=== PATIENT | female | born 1940 | race Caucasian/White ===

== ENCOUNTER → 2017-03-30 | Outpatient (CLI) | payer MEDICARE ==
--- NOTE | 2017-03-30 10:33 | MM ---
Reason for exam: additional evaluation requested from prior study. Last mammogram was performed 1 year ago. History: Patient is postmenopausal and has history of breast cancer at age 57. Family history of breast cancer in paternal aunt, breast cancer in paternal cousin, and breast cancer in sister at age 62. Malignant lumpectomy of the right breast, January 12, 1998. Radiation therapy of the right breast. Took tamoxifen for 5 years beginning at age 57. Physical Findings: Nurse did not find any significant physical abnormalities on exam. MG 3D Diag Mammo W/Cad JESUS Bilateral CC and MLO view(s) were taken. Prior study comparison: March 17, 2016, bilateral MG 3d diag mammo w/cad JESUS. February 17, 2015, bilateral MG diagnostic mammo w CAD JESUS. The breast tissue is heterogeneously dense. This may lower the sensitivity of mammography. Stable benign calcifications. There is no discrete abnormality including area of concern. Stable post operative changes in the right breast. These results were verbally communicated with the patient and result sheet given to the patient on 03/30/17. ASSESSMENT: Incomplete: need additional imaging evaluation, BI-RAD 0 RECOMMENDATION: Ultrasound of the left breast. Manage patient on a clinical basis.
--- NOTE | 2017-03-30 10:34 | USB ---
Reason for exam: additional evaluation requested from abnormal screening. History: Patient is postmenopausal and has history of breast cancer at age 57. Family history of breast cancer in paternal aunt, breast cancer in paternal cousin, and breast cancer in sister at age 62. Malignant lumpectomy of the right breast, January 12, 1998. Radiation therapy of the right breast. Took tamoxifen for 5 years beginning at age 57. US Breast Limited LT Left breast ultrasound demonstrates no cystic or solid lesion seen. These results were verbally communicated with the patient and result sheet given to the patient on 03/30/17. ASSESSMENT: Negative, BI-RAD 1 RECOMMENDATION: Follow-up diagnostic mammogram of both breasts in 1 year. Manage patient on a clinical basis.
== END | disposition home or self-care (01) ==
LOC: RADMAMWWP 09:28
PROVIDERS: ATTEND Internal Medicine
DX: Z08 Encounter for follow-up examination after completed treatment for malignant neoplasm (principal); R92.8 Other abnormal and inconclusive findings on diagnostic imaging of breast; Z85.3 Personal history of malignant neoplasm of breast
CPT/HCPCS: 76642; G0204; G0279

== ENCOUNTER 2017-10-18 08:10 | Day surgery (SDC) | payer MEDICARE ==
[2017-10-16 14:48] VITALS: BMI 35.2
[~2017-10-18 08:10] MED LIST: LACTATED RINGERS 1,000 ML IV SCH; LIDOCAINE 1% 20 ML VIAL (10MG/ML) FOR IV START INTRADERMA PRN
[2017-10-18 08:43] LABS: Glucose,Whole Blood 172 mg/dL (75-99)
[2017-10-18 08:44] VITALS: TEMP 98
[2017-10-18] MEDS ORDERED: PROPOFOL 10 MG/ML 20 ML VIAL IV ONE (09:01)
--- NOTE | 2017-10-18 09:16 | P.PCN ---
Date of Procedure: 10/18/17 Procedure(s) Performed: BRIEF HISTORY: Patient is a 77-year-old pleasant white female, scheduled for an elective colonoscopy as a part of screening for colorectal neoplasia. PROCEDURE PERFORMED: Colonoscopy. PREOPERATIVE DIAGNOSIS: Screening for colon cancer. IV sedation per Anesthesia. PROCEDURE: After informed consent was obtained, the patient, was brought into the endoscopy unit. IV sedation was administered by Anesthesia under continuous monitoring. Digital rectal examination was normal. Initially the Olympus CF- 160 flexible video colonoscope was then inserted in the rectum, gradually advanced into the cecum without any difficulty. Careful examination was performed as the scope was gradually being withdrawn. Ileocecal valve and the appendiceal orifice were visualized and appeared normal. Prep was excellent. Mucosa of the cecum, ascending colon, transverse colon, descending colon, sigmoid colon, and rectum appeared normal. Moderate sigmoid diverticulosis seen. Retroflexion was performed in the rectum and no lesions were seen. The patient tolerated the procedure well. IMPRESSION: Normal-appearing colon from rectum to cecum with no evidence of colorectal neoplasia. Moderate sigmoid diverticulosis . RECOMMENDATIONS: Findings of this examination were discussed with the patient as well as a family. She was advised to be a high-fiber diet and take fiber supplements a regular basis.
[2017-10-18 09:23] VITALS: RESP 16
[2017-10-18 09:36] VITALS: BP 135/61; PULSE 73
== END 2017-10-18 09:59 | disposition home or self-care (01) ==
LOC: ORWHC2ENDO 08:10
PROVIDERS: ATTEND Internal Medicine Gastroenterology
DX: Z12.11 Encounter for screening for malignant neoplasm of colon (principal); K57.30 Diverticulosis of large intestine without perforation or abscess without bleeding; I10 Essential (primary) hypertension; E11.9 Type 2 diabetes mellitus without complications; K21.9 Gastro-esophageal reflux disease without esophagitis; Z88.2 Allergy status to sulfonamides; Z79.84 Long term (current) use of oral hypoglycemic drugs; Z79.82 Long term (current) use of aspirin; Z79.899 Other long term (current) drug therapy
CPT/HCPCS: J2704; G0121

== ENCOUNTER → 2018-04-02 | Outpatient (CLI) | payer MEDICARE ==
--- NOTE | 2018-04-02 10:59 | MM ---
Reason for exam: additional evaluation requested from prior study. Last mammogram was performed 1 year ago. History: Patient is postmenopausal and has history of breast cancer at age 57. Family history of breast cancer in paternal aunt, breast cancer in paternal cousin, and breast cancer in sister at age 62. Malignant lumpectomy of the right breast, January 12, 1998. Radiation therapy of the right breast. Took tamoxifen for 5 years beginning at age 57. Physical Findings: Nurse did not find any significant physical abnormalities on exam. MG 3D Diag Mammo W/Cad JESUS Bilateral CC and MLO view(s) were taken. Prior study comparison: March 30, 2017, bilateral MG 3d diag mammo w/cad JESUS. March 17, 2016, bilateral MG 3d diag mammo w/cad JESUS. The breast tissue is heterogeneously dense. This may lower the sensitivity of mammography. Stable post surgical change right breast. No significant new findings when compared with previous films. These results were verbally communicated with the patient and result sheet given to the patient on 04/02/18. ASSESSMENT: Benign, BI-RAD 2 RECOMMENDATION: Routine screening mammogram of both breasts in 1 year.
== END | disposition home or self-care (01) ==
LOC: RADMAMWWP 09:10
PROVIDERS: ATTEND Internal Medicine
DX: R92.8 Other abnormal and inconclusive findings on diagnostic imaging of breast (principal)
CPT/HCPCS: 77066; G0279; 77062

== ENCOUNTER 2018-12-18 18:06 | Emergency (ER) | payer OTHER, MEDICARE ==
[2018-12-18] MEDS ORDERED: KETOROLAC 60 MG/2 ML VIAL IVP STA (18:45)
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
[2018-12-18 19:05] LABS: Basophils % (A) 0 %; Eosinophils # (A) 0.3 k/uL (0-0.7); Eosinophils % (A) 3 %; HCT 35.6 % (34.0-46.0); HGB 11.1 gm/dL (11.4-16.0); Lymphocytes # (A) 1.2 k/uL (1.0-4.8); Lymphocytes % (A) 15 %; MCH 25.6 pg (25.0-35.0); MCHC 31.2 g/dL (31.0-37.0); MCV 82.1 fL (80.0-100.0); Monocytes # (A) 0.4 k/uL (0-1.0); Monocytes % (A) 5 %; Neutrophils # (A) 5.8 k/uL (1.3-7.7); Neutrophils % (A) 75 %; Platelet Count 180 k/uL (150-450); RBC 4.34 m/uL (3.80-5.40); WBC 7.8 k/uL (3.8-10.6)
[2018-12-18 19:13] LABS: Albumin 4.2 g/dL (3.5-5.0); Calcium 9.7 mg/dL (8.4-10.2); Potassium 4.7 mmol/L (3.5-5.1); Total Bilirubin 0.4 mg/dL (0.2-1.3); Total Protein 6.8 g/dL (6.3-8.2)
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
[2018-12-18 20:10] VITALS: TEMP 98
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
[2018-12-18 21:29] VITALS: BP 156/63; PULSE 79; RESP 18
== END 2018-12-18 21:26 | disposition home or self-care (01) ==
LOC: EC 18:06
DX: S16.1XXA Strain of muscle, fascia and tendon at neck level, initial encounter (principal); S20.219A Contusion of unspecified front wall of thorax, initial encounter; E11.9 Type 2 diabetes mellitus without complications; K21.9 Gastro-esophageal reflux disease without esophagitis; E78.5 Hyperlipidemia, unspecified; I10 Essential (primary) hypertension; Z88.2 Allergy status to sulfonamides; Z79.82 Long term (current) use of aspirin; Z79.84 Long term (current) use of oral hypoglycemic drugs; Z79.899 Other long term (current) drug therapy; V43.52XA Car driver injured in collision with other type car in traffic accident, initial encounter; Y92.410 Unspecified street and highway as the place of occurrence of the external cause
CPT/HCPCS: 36415; 93005; 80053; 84484; 85025; 71120; 71046; 72125; 70450; 71250; 99285; 96374; J1885

== ENCOUNTER → 2019-04-03 | Outpatient (CLI) | payer MEDICARE ==
[2019-04-03 11:18] LABS: Appearance,Urine Clear (Clear); Bilirubin,Urine Negative (Negative); Blood,Urine Negative (Negative); Color,Urine Light Yellow; Glucose,Urine (UA) Negative (Negative); Ketones,Urine Negative (Negative); Leukocyte Esterase,Urine Trace (Negative); Mucus,Urine Rare /hpf; Nitrite,Urine Negative (Negative); Protein,Urine Negative (Negative); RBC,Urine <1 /hpf (0-5); Specific Gravity,Urine 1.009 (1.001-1.035); Urobilinogen,Urine <2.0 mg/dL (<2.0); WBC,Urine 1 /hpf (0-5)
[2019-04-03 12:53] LABS: Basophils % (A) 0 %; Eosinophils # (A) 0.2 k/uL (0-0.7); Eosinophils % (A) 4 %; HCT 33.7 % (34.0-46.0); HGB 10.5 gm/dL (11.4-16.0); Hypochromasia Slight; Lymphocytes # (A) 1.4 k/uL (1.0-4.8); Lymphocytes % (A) 26 %; MCH 26.6 pg (25.0-35.0); MCHC 31.2 g/dL (31.0-37.0); MCV 85.2 fL (80.0-100.0); Mean Platelet Volume 6.5; Monocytes # (A) 0.3 k/uL (0-1.0); Monocytes % (A) 5 %; Neutrophils # (A) 3.3 k/uL (1.3-7.7); Neutrophils % (A) 62 %; Platelet Count 201 k/uL (150-450); RBC 3.96 m/uL (3.80-5.40); RDW 14.2 % (11.5-15.5); WBC 5.3 k/uL (3.8-10.6)
[2019-04-03 16:39] LABS: Total Volume 24 Hour,Urine 1350 mL
[2019-04-03 16:52] LABS: Creatinine 24 Hour,Urine 0.61 g/24Hr (0.80-1.80)
[2019-04-03 18:03] LABS: Total Protein 24 Hour,Urine 82.4 mg/24Hr
[2019-04-03 18:21] LABS: Creatinine 24 Hour,Urine 649.4 mg/24hr (800.0-1800.0)
[2019-04-03 18:37] LABS: Iron Saturation 15.27 (12.00-45.00)
[2019-04-03 18:45] LABS: Ferritin 34.3 ng/mL (10.0-291.0)
[2019-04-03 18:46] LABS: Vitamin D 25 Hydroxy 41.2 ng/mL (30.0-100.0)
[2019-04-03 18:51] LABS: African American GFR (CKD) 42.2 (60.0-200.0); Albumin 4.2 g/dL (3.80-4.90); Albumin/Globulin Ratio 2.47 (1.60-3.17); Anion Gap 5.5 mmol/L (4.00-12.00); BUN/Creat Ratio 18.57 Ratio (12.00-20.00); Calcium 9.6 mg/dL (8.7-10.3); Carbon Dioxide 29.5 mmol/L (21.6-31.8); Globulin 1.7 g/dL (1.6-3.3); Magnesium 2.1 mg/dL (1.5-2.4); Phosphorus 3.5 mg/dL (2.4-5.1); Potassium 4.4 mmol/L (3.5-5.5); Total Bilirubin 0.4 mg/dL (0.3-1.2); Total Protein 5.9 g/dL (6.2-8.2); Uric Acid 8.6 mg/dL (2.9-7.7)
== END | disposition home or self-care (01) ==
LOC: LABWHC1 09:49
PROVIDERS: ATTEND Family Medicine
DX: I12.9 Hypertensive chronic kidney disease with stage 1 through stage 4 chronic kidney disease, or unspecified chronic kidney disease (principal); N18.9 Chronic kidney disease, unspecified; E11.22 Type 2 diabetes mellitus with diabetic chronic kidney disease
CPT/HCPCS: 36415; 80053; 81001; 82306; 82570; 82575; 82728; 83540; 83550; 83735; 83970; 84100; 84156; 84550; 85025; 87077; 87086; 87186

== ENCOUNTER → 2019-04-05 | Outpatient (CLI) | payer MEDICARE ==
--- NOTE | 2019-04-05 15:19 | US ---
EXAMINATION TYPE: US kidneys/renal and bladder DATE OF EXAM: 04/05/2019 COMPARISON: CT 2012, [place] 2010 CLINICAL HISTORY: N18.3 Chronic kidney disease, stage 3 (moderate). EXAM MEASUREMENTS: Right Kidney: 9.3 x 5.3 x 4.3 cm cm Left Kidney: 10.2 x 5.4 x 5.0 cm cm Post Void Residual Volume: 7.2 mL Right Kidney: No hydronephrosis or masses seen Left Kidney: No hydronephrosis or masses seen Bladder: wnl Bilateral Jets seen: Yes Normal Post Void Residual: Yes There is no evidence for hydronephrosis at this point in time. No nephrolithiasis is seen. No sol s are identified. The urinary bladder is anechoic. Bilateral ureteral jets are seen. Very mild brianna ical renal thinning is seen bilaterally. IMPRESSION: Sonographic sequela medical renal disease, mild. No sonographic evidence of hydronephrosis or nephrol ithiasis.
== END | disposition home or self-care (01) ==
LOC: RADUSWWP 14:46
PROVIDERS: ATTEND Family Medicine
DX: N28.89 Other specified disorders of kidney and ureter (principal); N18.3 Chronic kidney disease, stage 3 (moderate)
CPT/HCPCS: 76770

== ENCOUNTER → 2019-05-03 | Outpatient (CLI) | payer MEDICARE ==
--- NOTE | 2019-05-03 11:25 | MM ---
Reason for exam: screening (asymptomatic). Last mammogram was performed 1 year and 1 month ago. History: Patient is postmenopausal and has history of breast cancer at age 57. Family history of breast cancer in paternal aunt, breast cancer in paternal cousin, and breast cancer in sister at age 62. Malignant lumpectomy of the right breast, January 12, 1998. Radiation therapy of the right breast. Took tamoxifen for 5 years beginning at age 57. Physical Findings: A clinical breast exam by your physician is recommended on an annual basis and results should be correlated with mammographic findings. MG 3D Screening Mammo W/Cad Bilateral CC, MLO, and XCCL view(s) were taken. Prior study comparison: April 02, 2018, bilateral MG 3d diag mammo w/cad JESUS. March 30, 2017, bilateral MG 3d diag mammo w/cad JESUS. The breast tissue is heterogeneously dense. This may lower the sensitivity of mammography. Benign appearing calcifications in the right breast. No suspicious abnormality. Post therapy change on the right. No significant changes when compared with prior studies. ASSESSMENT: Benign, BI-RAD 2 RECOMMENDATION: Routine screening mammogram of both breasts in 1 year.
== END | disposition home or self-care (01) ==
LOC: RADMAMWWP 08:02
PROVIDERS: ATTEND Family Medicine
DX: Z12.31 Encounter for screening mammogram for malignant neoplasm of breast (principal)
CPT/HCPCS: 77063; 77067

== ENCOUNTER → 2019-08-07 | Outpatient (CLI) | payer MEDICARE ==
[2019-08-07 11:35] LABS: Basophils % (A) 0 %; Eosinophils # (A) 0.2 k/uL (0-0.7); Eosinophils % (A) 5 %; Hypochromasia Slight; Lymphocytes % (A) 22 %; MCH 26.1 pg (25.0-35.0); MCHC 31.3 g/dL (31.0-37.0); MCV 83.3 fL (80.0-100.0); Mean Platelet Volume 7.9; Monocytes # (A) 0.2 k/uL (0-1.0); Monocytes % (A) 4 %; Neutrophils % (A) 66 %; Platelet Count 212 k/uL (150-450); RDW 15.2 % (11.5-15.5); WBC 4.6 k/uL (3.8-10.6)
[2019-08-07 12:52] LABS: Appearance,Urine Slightly Cloudy (Clear); Bilirubin,Urine Negative (Negative); Blood,Urine Negative (Negative); Color,Urine Yellow; Glucose,Urine (UA) Negative (Negative); Ketones,Urine Negative (Negative); Nitrite,Urine Negative (Negative); Protein,Urine Negative (Negative); Specific Gravity,Urine 1.005 (1.001-1.035); Urobilinogen,Urine <2.0 mg/dL (<2.0)
[2019-08-07 12:53] LABS: Leukocyte Esterase,Urine Negative (Negative)
[2019-08-07 13:20] LABS: RBC,Urine <1 /hpf (0-5); WBC,Urine <1 /hpf (0-5)
[2019-08-07 13:35] LABS: Protein/Creatinine Ratio,Urine 0.192
[2019-08-07 16:15] LABS: Protein, Total 5.9 g/dL (6.2-8.2)
[2019-08-07 16:18] LABS: % Iron Saturation 17.85 (12.00-45.00); African American GFR (CKD) 33.1 (60.0-200.0); Albumin 4.2 g/dL (3.80-4.90); Anion Gap 9.3 mmol/L (4.00-12.00); BUN/Creat Ratio 21.18 Ratio (12.00-20.00); Calcium 9.5 mg/dL (8.7-10.3); Carbon Dioxide 26.7 mmol/L (21.6-31.8); Magnesium 2.1 mg/dL (1.5-2.4); Non-African American GFR(CKD) 28.6 (60.0-200.0); Phosphorus 3.9 mg/dL (2.4-5.1); Uric Acid 6.6 mg/dL (2.9-7.7)
[2019-08-07 16:25] LABS: Ferritin 33.9 ng/mL (10.0-291.0)
[2019-08-07 18:44] LABS: Total Volume 24 Hour,Urine 2000 mL
[2019-08-08 12:36] LABS: Albumin 3.58 g/dL (3.80-4.90); Gamma Globulin 0.74 g/dL (0.70-1.50)
== END | disposition home or self-care (01) ==
LOC: LABWHC1 10:18
PROVIDERS: ATTEND Internal Medicine Nephrology
DX: M10.9 Gout, unspecified (principal); D63.1 Anemia in chronic kidney disease; N18.3 Chronic kidney disease, stage 3 (moderate); E55.9 Vitamin D deficiency, unspecified; N25.81 Secondary hyperparathyroidism of renal origin; N39.0 Urinary tract infection, site not specified; R80.9 Proteinuria, unspecified
CPT/HCPCS: 36415; 80048; 81001; 81050; 82040; 82306; 82570; 82728; 83540; 83550; 83735; 83970; 84100; 84156; 84165; 84550; 85025; 86335

== ENCOUNTER → 2019-08-22 | Outpatient (CLI) | payer MEDICARE ==
[2019-08-22 17:36] LABS: African American GFR (CKD) 41.9 (60.0-200.0); Anion Gap 8.8 mmol/L (4.00-12.00); BUN/Creat Ratio 19.29 Ratio (12.00-20.00); Calcium 9.3 mg/dL (8.7-10.3); Carbon Dioxide 28.2 mmol/L (21.6-31.8); Non-African American GFR(CKD) 36.2 (60.0-200.0); Potassium 4.9 mmol/L (3.5-5.5)
== END | disposition home or self-care (01) ==
LOC: LABWHC1 11:16
PROVIDERS: ATTEND Nurse Practitioner Family
DX: N18.3 Chronic kidney disease, stage 3 (moderate) (principal)
CPT/HCPCS: 36415; 80048

== ENCOUNTER → 2020-03-02 | Outpatient (CLI) | payer MEDICARE ==
--- NOTE | 2020-03-02 17:38 | US ---
EXAMINATION TYPE: US venous doppler duplex LE DATE OF EXAM: 03/02/2020 5:22 PM COMPARISON: NONE CLINICAL HISTORY: R79.1 ELEVATED D DIMER. On aspirin. Patient states having leg swelling yesterday. No redness. No hx DVT. SIDE PERFORMED: Bilateral TECHNIQUE: The lower extremity deep venous system is examined utilizing real time linear array sonog vicenta with graded compression, doppler sonography and color-flow sonography. VESSELS IMAGED: External Iliac Vein (EIV) Common Femoral Vein Deep Femoral Vein Greater Saphenous Vein * Femoral Vein Popliteal Vein Small Saphenous Vein * Proximal Calf Veins (* superficial vessels) Right Leg: Negative for DVT Left Leg: Negative for DVT IMPRESSION: No sign of deep vein thrombosis in both legs.
== END | disposition home or self-care (01) ==
LOC: RADUSWWP 16:35
PROVIDERS: ATTEND Family Medicine
DX: R79.1 Abnormal coagulation profile (principal)
CPT/HCPCS: 93970

== ENCOUNTER → 2020-05-04 | Outpatient (CLI) | payer MEDICARE ==
--- NOTE | 2020-05-05 09:35 | MM ---
Reason for exam: screening (asymptomatic). Last mammogram was performed 1 year ago. History: Patient is postmenopausal and has history of breast cancer at age 57. Family history of breast cancer in paternal aunt, breast cancer in paternal cousin, and breast cancer in sister at age 62. Malignant lumpectomy of the right breast, January 12, 1998. Radiation therapy of the right breast. Took tamoxifen for 5 years beginning at age 57. Physical Findings: A clinical breast exam by your physician is recommended on an annual basis and results should be correlated with mammographic findings. MG 3D Screening Mammo W/Cad Bilateral CC and MLO view(s) were taken. Prior study comparison: May 03, 2019, bilateral MG 3d screening mammo w/cad. April 02, 2018, bilateral MG 3d diag mammo w/cad JESUS. The breast tissue is heterogeneously dense. This may lower the sensitivity of mammography. No significant changes when compared with prior studies. ASSESSMENT: Benign, BI-RAD 2 RECOMMENDATION: Routine screening mammogram of both breasts.
== END | disposition home or self-care (01) ==
LOC: RADMAMWWP 09:52
PROVIDERS: ATTEND Family Medicine
DX: Z12.31 Encounter for screening mammogram for malignant neoplasm of breast (principal)
CPT/HCPCS: 77063; 77067

== ENCOUNTER → 2020-09-01 | Outpatient (CLI) | payer MEDICARE ==
--- NOTE | 2020-09-01 12:18 | XR ---
EXAMINATION TYPE: XR foot complete LT DATE OF EXAM: 09/01/2020 COMPARISON: None HISTORY: Pain and swelling second digit TECHNIQUE: 3 view left foot FINDINGS: Postsurgical changes in the proximal phalanx great toe. There appears to be transverse fractures of the distal fifth metatarsal. Cortical erosion is present inferiorly. Correlate for osteomyelitis. No additional areas suspicious for fracture evident. Structures are osteopenic which may make fractur e identification difficult. Follow-up exam should be performed 7-10 days from acute trauma for contin ued pain. IMPRESSION: 1. Suspected fracture and/or osteomyelitis distal fifth metatarsal. Correlate with patient's clinica l symptoms. 2. Osteopenia. Occult fracture identification may be difficult. Follow-up x-rays can be performed as clinically indicated. 3. No discrete abnormality second digit
== END ==
LOC: RADXRMAIN 11:54
PROVIDERS: ATTEND Family Medicine
DX: M85.872 Other specified disorders of bone density and structure, left ankle and foot (principal)

== ENCOUNTER → 2020-12-08 | Outpatient (CLI) | payer MEDICARE ==
--- NOTE | 2020-12-08 09:32 | US ---
EXAMINATION TYPE: US abdomen complete DATE OF EXAM: 12/08/2020 COMPARISON: 04/05/2019 CLINICAL HISTORY: N18.9 CKD,R11.0 NAUSEA,D64.9 ANEMIA. nausea, CKD, h/o cholecystectomy EXAM MEASUREMENTS: Liver Length: 15.5 cm Gallbladder Wall: Surgically absent CBD: 0.6 cm Spleen: 10.5 cm Right Kidney: 8.6 x 3.7 x 5.0 cm Left Kidney: 7.2 x 4.3 x 5.0 cm Pancreas: wnl Liver: wnl Gallbladder: Surgically absent Evidence for sonographic Hubbard's sign: no CBD: wnl Spleen: wnl Right Kidney: mid pole simple cyst = 1.1 x 1.2 x 1.0cm, small in size Left Kidney: small in size Upper IVC: wnl Abd Aorta: wnl The liver is homogenous. The intrahepatic portion of the IVC and proximal abdominal aorta are within normal limits. Common bile duct is unremarkable. The visualized portions of the pancreas are homog enous. The spleen is unremarkable. Kidneys are symmetric and free of hydronephrosis. No renal lesi ons are seen. IMPRESSION: 1. Bilateral renal cortical thinning and small kidneys are most consistent with chronic renal disease . 2. Likely cystic lesion of the right kidney. Ultrasound follow-up can be obtained in 6-12 months. Cli nical correlation is recommended. 3. Status post cholecystectomy.
== END | disposition home or self-care (01) ==
LOC: RADUSWWP 07:20
PROVIDERS: ATTEND Family Medicine
DX: N27.1 Small kidney, bilateral (principal); Z90.49 Acquired absence of other specified parts of digestive tract
CPT/HCPCS: 76700

== ENCOUNTER → 2021-05-17 | Outpatient (CLI) | payer MEDICARE ==
--- NOTE | 2021-05-17 15:09 | XR ---
EXAMINATION TYPE: XR chest 2V DATE OF EXAM: 05/17/2021 COMPARISON: December 18, 2018 HISTORY: Shortness of breath TECHNIQUE: Frontal and lateral views of the chest are obtained. FINDINGS: Scattered senescent parenchymal changes noted. Hyperinflation compatible with COPD. No evidence for infiltrate. No evidence for atelectasis. Pulmonary venous congestion with cardiomegaly. Mild increased density right medial lung base. No over t failure. Mediastinal structures are stable and grossly unremarkable. No evidence for hilar prominence. Degenerative changes dorsal spine. IMPRESSION: 1. Pulmonary venous congestion with cardiomegaly.
== END | disposition home or self-care (01) ==
LOC: RADXRMAIN 14:48
PROVIDERS: ATTEND Family Medicine
DX: I51.7 Cardiomegaly (principal); R09.89 Other specified symptoms and signs involving the circulatory and respiratory systems
CPT/HCPCS: 71046

== ENCOUNTER → 2021-05-17 | Outpatient (CLI) | payer MEDICARE ==
--- NOTE | 2021-05-17 14:57 | US ---
EXAMINATION TYPE: US kidneys/renal and bladder DATE OF EXAM: 05/17/2021 COMPARISON: CLINICAL HISTORY: N28.9 KIDNEY LESION. hx renal cysts. EXAM MEASUREMENTS: Right Kidney: 9.3 x 4.1 x 3.6 cm Left Kidney: 7.7 x 3.9 x 4.8 cm Right Kidney: Two cystic lesions seen. Medial = 0.7 x 1.0 x 0.6 cm Lateral = 1.2 x 1.1 x 1.0 cm. Left Kidney: Appears smaller in size compared to contralateral kidney. Lower pole cystic lesion = 0 .5 x 0.5 x 0.4 cm Bladder: distended, anechoic Bilateral Jets seen There is no evidence for hydronephrosis at this point in time. No nephrolithiasis is seen. No solid masses are identified. The urinary bladder is anechoic. Bilateral ureteral jets are seen. IMPRESSION: 1. Renal cortical cysts.
== END | disposition home or self-care (01) ==
LOC: RADUSWWP 14:00
PROVIDERS: ATTEND Family Medicine
DX: N28.1 Cyst of kidney, acquired (principal)
CPT/HCPCS: 76770

== ENCOUNTER 2021-06-10 23:54 | Emergency (ER) | payer MEDICARE ==
--- NOTE | 2021-06-10 23:59 | ED ---
SOB HPI - General Stated Complaint: Shortness of Breath Time Seen by Provider: 06/10/21 23:57 Source: RN notes reviewed, old records reviewed Mode of arrival: ambulatory Limitations: no limitations - History of Present Illness Initial Comments: This is a 80-year-old female to the emergency department for evaluation of significant shortness of breath today. Patient is without chest pain without recent fevers. Patient admits to struggles with low hemoglobin as of late patient also admits to having some heart tests coming up recently. Denying transfusion. Patient again currently denies chest pain or fever. Symptoms are significantly worse with exertion MD Complaint: shortness of breath -: days(s) Severity: moderate Severity scale (1-10): 5 Consistency: constant Improves With: nothing Worsens With: exertion, movement Known History Of: other (Low hemoglobin) Context: other (History of heart disease) Associated Symptoms: denies other symptoms Treatments Prior to Arrival: none - Related Data Home Medications Medication Instructions Recorded Confirmed Aspirin 325 mg PO DAILY 10/16/17 12/18/18 Furosemide [Lasix] 20 mg PO DAILY 10/16/17 12/18/18 Lisinopril [Zestril] 10 mg PO DAILY 10/16/17 12/18/18 Multivitamins, Thera [Multivitamin 1 tab PO DAILY 10/16/17 12/18/18 (formulary)] Pantoprazole Sodium [Protonix] 40 mg PO DAILY 10/16/17 12/18/18 Pioglitazone [Actos] 45 mg PO DAILY 10/16/17 12/18/18 Simvastatin [Zocor] 80 mg PO DAILY 10/16/17 12/18/18 Acarbose [Precose] 25 mg PO BID 12/18/18 12/18/18 Calcium Carbonate/Vitamin D3 1 tab PO DAILY 12/18/18 12/18/18 [Calcium 600-Vit D3 200 Tablet] glipiZIDE XL [Glucotrol Xl] 10 mg PO DAILY 12/18/18 12/18/18 Allergies Allergy/AdvReac Type Severity Reaction Status Date / Time Sulfa (Sulfonamide Allergy Rash/Hives Verified 12/18/18 18:31 Antibiotics) Review of Systems ROS Statement: Those systems with pertinent positive or pertinent negative responses have been documented in the HPI. ROS Other: All systems not noted in ROS Statement are negative. Past Medical History Past Medical History: Diabetes Mellitus, GERD/Reflux, Hyperlipidemia, Hypertension History of Any Multi-Drug Resistant Organisms: None Reported Past Surgical History: Breast Surgery, Section, Cholecystectomy, Hysterectomy Additional Past Surgical History / Comment(s): right breast lumpectomy. ovarian cyst removal. 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 Absent: scleral icterus, conjunctival injection, periorbital swelling ENT exam: Present: normal exam, mucous membranes moist Neck exam: Present: normal inspection. Absent: tenderness, meningismus, lymphadenopathy Respiratory exam: Present: normal lung sounds bilaterally. Absent: respiratory distress, wheezes, rales, rhonchi, stridor Cardiovascular Exam: Present: normal rhythm, tachycardia, normal heart sounds. Absent: systolic murmur, diastolic murmur, rubs, gallop, clicks GI/Abdominal exam: Present: soft, normal bowel sounds. Absent: distended, tenderness, guarding, rebound, rigid Extremities exam: Present: normal inspection, full ROM, normal capillary refill. Absent: tenderness, pedal edema, joint swelling, calf tenderness Back exam: Present: normal inspection Neurological exam: Present: alert, oriented X3, CN II-XII intact Psychiatric exam: Present: normal affect, normal mood Skin exam: Present: warm, dry, intact, normal color. Absent: rash Course Vital Signs 06/10/21 23:56 Temperature 98.4 F Pulse Rate 103 H Respiratory 18 Rate Blood Pressure 105/50 O2 Sat by Pulse 99 Oximetry - Reevaluation(s) Reevaluation #1: 06/11/21 02:05 Medical record is reviewed Reevaluation #2: 06/11/21 02:05 Patient family informed of results questions answered Reevaluation #3: 06/11/21 02:05 A patient does consent to transfusion Patient does not want hospital admission Medical Decision Making - Medical Decision Making 80 female to the emergency department for shortness of breath anemia related. No heart failure on x-ray. Patient given transfusion here in the ER with no reaction can be discharged home - Lab Data Result diagrams: 06/11/21 00:15 06/11/21 00:15 Lab Results 06/11/21 06/11/21 06/11/21 Range/Units 00:15 00:15 00:15 WBC 11.5 H (3.8-10.6) k/uL RBC 2.36 L (3.80-5.40) m/uL Hgb 6.3 L* (11.4-16.0) gm/dL Hct 20.9 L (34.0-46.0) % MCV 88.7 (80.0-100.0) fL MCH 26.7 (25.0-35.0) pg MCHC 30.2 L (31.0-37.0) g/dL RDW 17.8 H (11.5-15.5) % Plt Count 221 (150-450) k/uL MPV 8.5 Neutrophils % 89 % Lymphocytes % 6 % Monocytes % 3 % Eosinophils % 0 % Basophils % 0 % Neutrophils # 10.3 H (1.3-7.7) k/uL Lymphocytes # 0.7 L (1.0-4.8) k/uL Monocytes # 0.4 (0-1.0) k/uL Eosinophils # 0.0 (0-0.7) k/uL Basophils # 0.0 (0-0.2) k/uL Hypochromasia Marked Anisocytosis Slight PT 10.6 (9.0-12.0) sec INR 1.0 (<1.2) APTT 20.8 L (22.0-30.0) sec D-Dimer 0.48 (<0.60) mg/L FEU Sodium 138 (137-145) mmol/L Potassium 4.9 (3.5-5.1) mmol/L Chloride 104 (98-107) mmol/L Carbon Dioxide 24 (22-30) mmol/L Anion Gap 10 mmol/L BUN 69 H (7-17) mg/dL Creatinine 1.44 H (0.52-1.04) mg/dL Est GFR (CKD-EPI)AfAm 40 (>60 ml/min/1.73 sqM) Est GFR (CKD-EPI)NonAf 35 (>60 ml/min/1.73 sqM) Glucose 213 H (74-99) mg/dL Plasma Lactic Acid George (0.7-2.0) mmol/L Calcium 10.3 H (8.4-10.2) mg/dL Phosphorus 3.5 (2.5-4.5) mg/dL Magnesium 2.2 (1.6-2.3) mg/dL Total Bilirubin 0.2 (0.2-1.3) mg/dL AST 23 (14-36) U/L ALT 14 (4-34) U/L Alkaline Phosphatase 47 (38-126) U/L Troponin I (0.000-0.034) ng/mL NT-Pro-B Natriuret Pep pg/mL Total Protein 5.6 L (6.3-8.2) g/dL Albumin 3.3 L (3.5-5.0) g/dL Blood Type Blood Type Confirm Blood Type Recheck Bld Type Recheck Status Antibody Screen Crossmatch Spec Expiration Date 06/11/21 06/11/21 06/11/21 Range/Units 00:15 00:15 00:15 WBC (3.8-10.6) k/uL RBC (3.80-5.40) m/uL Hgb (11.4-16.0) gm/dL Hct (34.0-46.0) % MCV (80.0-100.0) fL MCH (25.0-35.0) pg MCHC (31.0-37.0) g/dL RDW (11.5-15.5) % Plt Count (150-450) k/uL MPV Neutrophils % % Lymphocytes % % Monocytes % % Eosinophils % % Basophils % % Neutrophils # (1.3-7.7) k/uL Lymphocytes # (1.0-4.8) k/uL Monocytes # (0-1.0) k/uL Eosinophils # (0-0.7) k/uL Basophils # (0-0.2) k/uL Hypochromasia Anisocytosis PT (9.0-12.0) sec INR (<1.2) APTT (22.0-30.0) sec D-Dimer (<0.60) mg/L FEU Sodium (137-145) mmol/L Potassium (3.5-5.1) mmol/L Chloride (98-107) mmol/L Carbon Dioxide (22-30) mmol/L Anion Gap mmol/L BUN (7-17) mg/dL Creatinine (0.52-1.04) mg/dL Est GFR (CKD-EPI)AfAm (>60 ml/min/1.73 sqM) Est GFR (CKD-EPI)NonAf (>60 ml/min/1.73 sqM) Glucose (74-99) mg/dL Plasma Lactic Acid George 1.7 (0.7-2.0) mmol/L Calcium (8.4-10.2) mg/dL Phosphorus (2.5-4.5) mg/dL Magnesium (1.6-2.3) mg/dL Total Bilirubin (0.2-1.3) mg/dL AST (14-36) U/L ALT (4-34) U/L Alkaline Phosphatase (38-126) U/L Troponin I <0.012 (0.000-0.034) ng/mL NT-Pro-B Natriuret Pep 832 pg/mL Total Protein (6.3-8.2) g/dL Albumin (3.5-5.0) g/dL Blood Type Blood Type Confirm Blood Type Recheck Bld Type Recheck Status Antibody Screen Crossmatch Spec Expiration Date 06/11/21 06/11/21 Range/Units 01:15 01:30 WBC (3.8-10.6) k/uL RBC (3.80-5.40) m/uL Hgb (11.4-16.0) gm/dL Hct (34.0-46.0) % MCV (80.0-100.0) fL MCH (25.0-35.0) pg MCHC (31.0-37.0) g/dL RDW (11.5-15.5) % Plt Count (150-450) k/uL MPV Neutrophils % % Lymphocytes % % Monocytes % % Eosinophils % % Basophils % % Neutrophils # (1.3-7.7) k/uL Lymphocytes # (1.0-4.8) k/uL Monocytes # (0-1.0) k/uL Eosinophils # (0-0.7) k/uL Basophils # (0-0.2) k/uL Hypochromasia Anisocytosis PT (9.0-12.0) sec INR (<1.2) APTT (22.0-30.0) sec D-Dimer (<0.60) mg/L FEU Sodium (137-145) mmol/L Potassium (3.5-5.1) mmol/L Chloride (98-107) mmol/L Carbon Dioxide (22-30) mmol/L Anion Gap mmol/L BUN (7-17) mg/dL Creatinine (0.52-1.04) mg/dL Est GFR (CKD-EPI)AfAm (>60 ml/min/1.73 sqM) Est GFR (CKD-EPI)NonAf (>60 ml/min/1.73 sqM) Glucose (74-99) mg/dL Plasma Lactic Acid George (0.7-2.0) mmol/L Calcium (8.4-10.2) mg/dL Phosphorus (2.5-4.5) mg/dL Magnesium (1.6-2.3) mg/dL Total Bilirubin (0.2-1.3) mg/dL AST (14-36) U/L ALT (4-34) U/L Alkaline Phosphatase (38-126) U/L Troponin I (0.000-0.034) ng/mL NT-Pro-B Natriuret Pep pg/mL Total Protein (6.3-8.2) g/dL Albumin (3.5-5.0) g/dL Blood Type A Positive Blood Type Confirm A Positive Blood Type Recheck No Previous Record Bld Type Recheck Status CABO Indicated Antibody Screen NEGATIVE Crossmatch See Detail Spec Expiration Date 06/14/2021 - 3373 - EKG Data -: EKG Interpreted by Me (EKG sinus tachycardia 104 GA 120 QRS 74 QTc 426) Disposition Clinical Impression: Anemia, Symptomatic anemia Disposition: HOME SELF-CARE Condition: Fair Instructions (If sedation given, give patient instructions): Anemia (ED) Is patient prescribed a controlled substance at d/c from ED?: No Referrals: Sunita Jackson MD [Primary Care Provider] - 1-2 days
[2021-06-11 00:23] LABS: Anisocytosis Slight; Basophils % (A) 0 %; Eosinophils % (A) 0 %; HCT 20.9 % (34.0-46.0); Hypochromasia Marked; Lymphocytes # (A) 0.7 k/uL (1.0-4.8); Lymphocytes % (A) 6 %; MCH 26.7 pg (25.0-35.0); MCHC 30.2 g/dL (31.0-37.0); MCV 88.7 fL (80.0-100.0); Mean Platelet Volume 8.5; Monocytes # (A) 0.4 k/uL (0-1.0); Monocytes % (A) 3 %; Neutrophils # (A) 10.3 k/uL (1.3-7.7); Neutrophils % (A) 89 %; Platelet Count 221 k/uL (150-450); RBC 2.36 m/uL (3.80-5.40); RDW 17.8 % (11.5-15.5); WBC 11.5 k/uL (3.8-10.6)
--- NOTE | 2021-06-11 00:36 | XR ---
EXAMINATION TYPE: XR chest 1V portable DATE OF EXAM: 06/11/2021 COMPARISON: 05/17/2021 HISTORY: Short of breath TECHNIQUE: FINDINGS: There is no heart failure nor confluent pneumonic infiltrate. Costophrenic angles are clear . There are no hilar masses. There is some pleural thickening at the lung apices. Thoracic aorta is a theromatous. IMPRESSION: There is minimal pleural reaction left lung base. Normal heart. No adverse change.
[2021-06-11 00:43] LABS: Albumin 3.3 g/dL (3.5-5.0); Calcium 10.3 mg/dL (8.4-10.2); Magnesium 2.2 mg/dL (1.6-2.3); Phosphorus 3.5 mg/dL (2.5-4.5); Potassium 4.9 mmol/L (3.5-5.1); Total Bilirubin 0.2 mg/dL (0.2-1.3); Total Protein 5.6 g/dL (6.3-8.2)
[2021-06-11 01:07] LABS: Prothrombin Time 10.6 sec (9.0-12.0)
[2021-06-11 01:15] LABS: HGB 6.3 gm/dL (11.4-16.0)
[2021-06-11 01:29] LABS: Partial Thromboplastin Time 20.8 sec (22.0-30.0)
[2021-06-11] MEDS: ENALAPRILAT 1.25 MG/ML 1 ML VIAL IVP STA (07:22)
[2021-06-11 08:01] VITALS: BP 133/61; PULSE 87; RESP 20; TEMP 99.3
== END 2021-06-11 08:11 | disposition home or self-care (01) ==
LOC: EC 23:54
DX: D64.9 Anemia, unspecified (principal); R06.02 Shortness of breath; E11.9 Type 2 diabetes mellitus without complications; E78.5 Hyperlipidemia, unspecified; K21.9 Gastro-esophageal reflux disease without esophagitis; I10 Essential (primary) hypertension; Z88.2 Allergy status to sulfonamides; Z79.82 Long term (current) use of aspirin; Z79.899 Other long term (current) drug therapy; Z79.84 Long term (current) use of oral hypoglycemic drugs
CPT/HCPCS: 93005; 86900; 86901; 85379; 83880; 80053; 83605; 83735; 84100; 84484; 85025; 85610; 85730; 86850; 86920; 71045; 99285; P9016

== ENCOUNTER 2021-10-15 13:35 | Emergency (ER) | payer MEDICARE ==
[2021-10-15] MEDS ORDERED: SODIUM CHLORIDE 0.9% 1,000 ML IV STA (13:58)
[2021-10-15] MEDS ORDERED: LIDOCAINE 5% PATCH TOPICAL SCH (14:00)
[2021-10-15 14:41] LABS: Anisocytosis Slight; Basophils % (A) 0 %; Eosinophils # (A) 0.1 k/uL (0-0.7); Eosinophils % (A) 1 %; Hypochromasia Marked; Lymphocytes # (A) 0.8 k/uL (1.0-4.8); Lymphocytes % (A) 12 %; MCH 25.8 pg (25.0-35.0); MCHC 29.2 g/dL (31.0-37.0); MCV 88.5 fL (80.0-100.0); Mean Platelet Volume 7.9; Monocytes # (A) 0.3 k/uL (0-1.0); Monocytes % (A) 5 %; Neutrophils # (A) 5.4 k/uL (1.3-7.7); Neutrophils % (A) 81 %; Platelet Count 223 k/uL (150-450); RDW 19.7 % (11.5-15.5); WBC 6.6 k/uL (3.8-10.6)
[2021-10-15 14:48] LABS: Albumin 3.6 g/dL (3.5-5.0); Calcium 9.8 mg/dL (8.4-10.2); Potassium 4.4 mmol/L (3.5-5.1); Total Bilirubin 0.4 mg/dL (0.2-1.3)
[2021-10-15 14:53] LABS: HGB 5.4 gm/dL (11.4-16.0)
[2021-10-15 14:54] LABS: HCT 18.6 % (34.0-46.0)
[2021-10-15 15:10] LABS: Creatine Kinase MB 0.5 ng/mL (0.0-2.4); Troponin I 0.015 ng/mL (0.000-0.034)
[2021-10-15 15:42] LABS: Appearance,Urine Clear (Clear); Bilirubin,Urine Negative (Negative); Blood,Urine Negative (Negative); Color,Urine Yellow; Glucose,Urine (UA) Negative (Negative); Granular Casts,Urine 1 /lpf (0); Hyaline Casts,Urine 84 /lpf (0-2); Ketones,Urine Negative (Negative); Leukocyte Esterase,Urine Trace (Negative); Mucus,Urine Rare /hpf; Nitrite,Urine Negative (Negative); Protein,Urine Trace (Negative); RBC,Urine 1 /hpf (0-5); Specific Gravity,Urine 1.016 (1.001-1.035); Squamous Epithelial Cell,Urine 1 /hpf (0-4); Urobilinogen,Urine <2.0 mg/dL (<2.0); WBC,Urine 3 /hpf (0-5)
--- NOTE | 2021-10-15 18:52 | ED ---
Nausea/Vomiting/Diarrhea HPI - General Chief complaint: Nausea/Vomiting/Diarrhea Stated complaint: Vomiting, Dizziness Time Seen by Provider: 10/15/21 13:41 Source: patient, family, RN notes reviewed Mode of arrival: wheelchair Limitations: no limitations - History of Present Illness Initial comments: This is a 81-year-old female who presents the emergency department for 3 days of nausea, vomiting, and body aches. She tested negative for Covid yesterday and her granddaughter is worried that she might have influenza. She does have iron deficiency secondary to chronic kidney disease. She used to require regular iron infusions and now takes only oral iron. She is also concerned that her hemoglobin may be low with regards to this, she was in the emergency department on 06/11/2021, and found to have a hemoglobin of 6.3. She was transfused one u nit of PRBCs and discharged home. Other than the chronic kidney disease, she has never been told why her hemoglobin continues to drop. Given her age, she and her providers have opted to avoid any significant workup. States that body aches are primarily in her bilateral lower extremities, and it is hurting to walk for prolonged periods of time. She also reports a lower back pain that has been present for approximately one month, this is primarily situated in the left lower back. She has not taken any medication for her pain. MD complaint: nausea, vomiting Onset/Timin -: days(s) Associated Abdominal Pain: No - Related Data Home Medications Medication Instructions Recorded Confirmed Furosemide [Lasix] 20 mg PO DAILY 10/16/17 10/15/21 Multivitamins, Thera [Multivitamin 1 tab PO DAILY 10/16/17 10/15/21 (formulary)] Pantoprazole Sodium [Protonix] 40 mg PO DAILY 10/16/17 10/15/21 Pioglitazone [Actos] 45 mg PO DAILY 10/16/17 10/15/21 Simvastatin [Zocor] 80 mg PO DAILY 10/16/17 10/15/21 Acarbose [Precose] 25 mg PO AC-LUNCH 12/18/18 10/15/21 glipiZIDE XL [Glucotrol Xl] 10 mg PO DAILY 12/18/18 10/15/21 Acarbose [Precose] 50 mg PO AC-SUPPER 10/15/21 10/15/21 Aspirin 325 mg PO BID 10/15/21 10/15/21 Calcium Carbonate [Calcium] 600 mg PO DAILY 10/15/21 10/15/21 Cetirizine HCl [Zyrtec] 10 mg PO DAILY PRN 10/15/21 10/15/21 Ferrous Sulfate [Iron] 325 mg PO DAILY 10/15/21 10/15/21 allopurinoL [Zyloprim] 100 mg PO HS 10/15/21 10/15/21 Allergies Allergy/AdvReac Type Severity Reaction Status Date / Time Sulfa (Sulfonamide Allergy Rash/Hives Verified 10/15/21 18:39 Antibiotics) Review of Systems ROS Statement: Those systems with pertinent positive or pertinent negative responses have been documented in the HPI. ROS Other: All systems not noted in ROS Statement are negative. Constitutional: Denies: fever, chills ENT: Denies: ear pain, throat pain Respiratory: Denies: cough, dyspnea Cardiovascular: Denies: chest pain, palpitations Gastrointestinal: Reports: nausea, vomiting. Denies: abdominal pain, diarrhea, constipation Genitourinary: Denies: urgency, dysuria Skin: Denies: rash Neurological: Denies: headache Past Medical History Past Medical History: Blood Disorder, Diabetes Mellitus, GERD/Reflux, Hyperlipidemia, Hypertension, Renal Disease Additional Past Medical History / Comment(s): chronic kidney disease. iron deficiency anemia History of Any Multi-Drug Resistant Organisms: None Reported Past Surgical History: Breast Surgery, Section, Cholecystectomy, Hysterectomy Additional Past Surgical History / Comment(s): right breast lumpectomy. ovarian cyst removal. 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 Absent: respiratory distress, wheezes, rales, rhonchi, stridor Cardiovascular Exam: Present: regular rate, normal rhythm, normal heart sounds. Absent: systolic murmur, diastolic murmur, rubs, gallop, clicks GI/Abdominal exam: Present: soft, normal bowel sounds. Absent: distended, tenderness, guarding, rebound, rigid Neurological exam: Present: alert, oriented X3, CN II-XII intact Psychiatric exam: Present: normal affect, normal mood Skin exam: Present: warm, dry, intact, normal color. Absent: rash Course Vital Signs 10/15/21 10/15/21 10/15/21 13:36 18:00 18:10 Temperature 98.4 F 98.9 F 98.1 F Pulse Rate 93 85 84 Respiratory 20 20 16 Rate Blood Pressure 128/55 110/46 115/46 O2 Sat by Pulse 99 100 Oximetry Medical Decision Making - Medical Decision Making This is a 81-year-old female who presents to the emergency department for nausea, vomiting, and body aches. CBC revealed a hemoglobin of 5.4. She was transfused with 2 units of packed red blood cells. Lab work was otherwise unremarkable, and the patient tested negative for influenza. Discussed that while COVID was negative yesterday, we can repeat it, as the results may have changed, however the patient declined. She was given a liter bolus of normal saline, and a lidocaine patch was applied to the lower back for pain. Patient was reevaluated around 1900 and states that she overall feels well and has no current complaints. Patient's care and disposition will be transferred over to Dr. Sheehan due to shift completion. - Lab Data Result diagrams: 10/15/21 14:23 10/15/21 14:23 Lab Results 10/15/21 10/15/21 10/15/21 Range/Units 14:23 14:23 14:23 WBC 6.6 (3.8-10.6) k/uL RBC 2.10 L (3.80-5.40) m/uL Hgb 5.4 L* D (11.4-16.0) gm/dL Hct 18.6 L* (34.0-46.0) % MCV 88.5 (80.0-100.0) fL MCH 25.8 (25.0-35.0) pg MCHC 29.2 L (31.0-37.0) g/dL RDW 19.7 H (11.5-15.5) % Plt Count 223 (150-450) k/uL MPV 7.9 Neutrophils % 81 % Lymphocytes % 12 % Monocytes % 5 % Eosinophils % 1 % Basophils % 0 % Neutrophils # 5.4 (1.3-7.7) k/uL Lymphocytes # 0.8 L (1.0-4.8) k/uL Monocytes # 0.3 (0-1.0) k/uL Eosinophils # 0.1 (0-0.7) k/uL Basophils # 0.0 (0-0.2) k/uL Hypochromasia Marked Anisocytosis Slight Sodium 138 (137-145) mmol/L Potassium 4.4 (3.5-5.1) mmol/L Chloride 106 (98-107) mmol/L Carbon Dioxide 23 (22-30) mmol/L Anion Gap 9 mmol/L BUN 44 H (7-17) mg/dL Creatinine 1.52 H (0.52-1.04) mg/dL Est GFR (CKD-EPI)AfAm 37 (>60 ml/min/1.73 sqM) Est GFR (CKD-EPI)NonAf 32 (>60 ml/min/1.73 sqM) Glucose 217 H (74-99) mg/dL Calcium 9.8 (8.4-10.2) mg/dL Total Bilirubin 0.4 (0.2-1.3) mg/dL AST 22 (14-36) U/L ALT 13 (4-34) U/L Alkaline Phosphatase 57 (38-126) U/L CK-MB (CK-2) (0.0-2.4) ng/mL Troponin I (0.000-0.034) ng/mL Total Protein 6.0 L (6.3-8.2) g/dL Albumin 3.6 (3.5-5.0) g/dL Amylase 41 (30-110) U/L Lipase 60 (23-300) U/L Urine Color Yellow Urine Appearance Clear (Clear) Urine pH 5.0 (5.0-8.0) Ur Specific [place] 1.016 (1.001-1.035) Urine Protein Trace H (Negative) Urine Glucose (UA) Negative (Negative) Urine Ketones Negative (Negative) Urine Blood Negative (Negative) Urine Nitrite Negative (Negative) Urine Bilirubin Negative (Negative) Urine Urobilinogen <2.0 (<2.0) mg/dL Ur Leukocyte Esterase Trace H (Negative) Urine RBC 1 (0-5) /hpf Urine WBC 3 (0-5) /hpf Ur Squamous Epith Cells 1 (0-4) /hpf Hyaline Casts 84 H (0-2) /lpf Granular Casts 1 (0) /lpf Urine Mucus Rare H (None) /hpf Influenza Type A RNA (Not Detectd) Influenza Type B (PCR) (Not Detectd) Blood Type Blood Type Recheck Bld Type Recheck Status Antibody Screen Crossmatch Spec Expiration Date 10/15/21 10/15/21 10/15/21 Range/Units 14:23 14:23 15:48 WBC (3.8-10.6) k/uL RBC (3.80-5.40) m/uL Hgb (11.4-16.0) gm/dL Hct (34.0-46.0) % MCV (80.0-100.0) fL MCH (25.0-35.0) pg MCHC (31.0-37.0) g/dL RDW (11.5-15.5) % Plt Count (150-450) k/uL MPV Neutrophils % % Lymphocytes % % Monocytes % % Eosinophils % % Basophils % % Neutrophils # (1.3-7.7) k/uL Lymphocytes # (1.0-4.8) k/uL Monocytes # (0-1.0) k/uL Eosinophils # (0-0.7) k/uL Basophils # (0-0.2) k/uL Hypochromasia Anisocytosis Sodium (137-145) mmol/L Potassium (3.5-5.1) mmol/L Chloride (98-107) mmol/L Carbon Dioxide (22-30) mmol/L Anion Gap mmol/L BUN (7-17) mg/dL Creatinine (0.52-1.04) mg/dL Est GFR (CKD-EPI)AfAm (>60 ml/min/1.73 sqM) Est GFR (CKD-EPI)NonAf (>60 ml/min/1.73 sqM) Glucose (74-99) mg/dL Calcium (8.4-10.2) mg/dL Total Bilirubin (0.2-1.3) mg/dL AST (14-36) U/L ALT (4-34) U/L Alkaline Phosphatase (38-126) U/L CK-MB (CK-2) 0.5 (0.0-2.4) ng/mL Troponin I 0.015 (0.000-0.034) ng/mL Total Protein (6.3-8.2) g/dL Albumin (3.5-5.0) g/dL Amylase (30-110) U/L Lipase (23-300) U/L Urine Color Urine Appearance (Clear) Urine pH (5.0-8.0) Ur Specific [place] (1.001-1.035) Urine Protein (Negative) Urine Glucose (UA) (Negative) Urine Ketones (Negative) Urine Blood (Negative) Urine Nitrite (Negative) Urine Bilirubin (Negative) Urine Urobilinogen (<2.0) mg/dL Ur Leukocyte Esterase (Negative) Urine RBC (0-5) /hpf Urine WBC (0-5) /hpf Ur Squamous Epith Cells (0-4) /hpf Hyaline Casts (0-2) /lpf Granular Casts (0) /lpf Urine Mucus (None) /hpf Influenza Type A RNA Not Detected (Not Detectd) Influenza Type B (PCR) Not Detected (Not Detectd) Blood Type A Positive Blood Type Recheck A Pos Bld Type Recheck Status No Antibody Screen NEGATIVE Crossmatch See Detail Spec Expiration Date 10/18/2021 - 8259 - EKG Data EKG shows normal: sinus rhythm EKG Comments: Normal sinus rhythm. Ventricular rate 85 bpm, OR interval 154 ms, QRS duration 98 ms, QTC 404 ms. Disposition Clinical Impression: Anemia due to chronic kidney disease Disposition: HOME SELF-CARE Is patient prescribed a controlled substance at d/c from ED?: No Referrals: Brett Bruce [Primary Care Provider] - 1-2 days
[2021-10-15 21:39] VITALS: BP 130/55; PULSE 72; RESP 18; TEMP 98.5
== END 2021-10-15 21:48 | disposition home or self-care (01) ==
LOC: EC 13:35
DX: I12.9 Hypertensive chronic kidney disease with stage 1 through stage 4 chronic kidney disease, or unspecified chronic kidney disease (principal); N18.9 Chronic kidney disease, unspecified; D63.1 Anemia in chronic kidney disease; E11.22 Type 2 diabetes mellitus with diabetic chronic kidney disease; E78.5 Hyperlipidemia, unspecified; K21.9 Gastro-esophageal reflux disease without esophagitis; Z20.822 Contact with and (suspected) exposure to COVID-19; Z79.82 Long term (current) use of aspirin; Z79.84 Long term (current) use of oral hypoglycemic drugs; Z87.891 Personal history of nicotine dependence; Z88.2 Allergy status to sulfonamides; Z79.899 Other long term (current) drug therapy
CPT/HCPCS: 36415; 93005; 86900; 86901; 80053; 82150; 82553; 83690; 84484; 85025; 86850; 86920; 81001; 87502; 99284; 96360; P9016

== ENCOUNTER 2021-10-17 15:16 | Observation (INO) | payer MEDICARE ==
--- NOTE | 2021-10-17 16:26 | ED ---
Weakness HPI - General Chief complaint: Weakness Stated complaint: Low hemoglobin Time Seen by Provider: 10/17/21 15:53 Source: patient, family, RN notes reviewed Mode of arrival: wheelchair Limitations: no limitations - History of Present Illness Initial comments: This is a pleasant 81-year-old female with a history of anemia. Patient presen ts to the emergency prior complaining of generalized weakness, some lightheadedness. Denies chest pain or abdominal pain. Does state that she's had some shortness of breath with exertion. Does have a history of CHF. No peripheral edema. Was seen here on Monday and had 2 units of blood transfused for anemia with a hemoglobin of 5.4. Patient states she felt okay yesterday and then started feeling fatigued again today. Patient denying any pain. Patient states she does have black stools but takes iron supplementation. Patient states she had a colonoscopy done in June. Unsure whether there was an upper endoscopy. No headache, no fever or chills, no changes in vision or hearing, no sore throat or difficulty with speech, no neck pain, no chest pain, no abdominal pain, no nausea or vomiting, no changes in urination or bowel movements, no numbness or tingling, no extremity pain, no skin rashes or lesions. MD Complaint: generalized weakness - Related Data Home Medications Medication Instructions Recorded Confirmed Furosemide [Lasix] 20 mg PO DAILY 10/16/17 10/17/21 Multivitamins, Thera [Multivitamin 1 tab PO DAILY 10/16/17 10/17/21 (formulary)] Pantoprazole Sodium [Protonix] 40 mg PO DAILY 10/16/17 10/17/21 Pioglitazone [Actos] 45 mg PO DAILY 10/16/17 10/17/21 Simvastatin [Zocor] 80 mg PO DAILY 10/16/17 10/17/21 Acarbose [Precose] 25 mg PO AC-LUNCH 12/18/18 10/17/21 glipiZIDE XL [Glucotrol Xl] 10 mg PO DAILY 12/18/18 10/17/21 Acarbose [Precose] 50 mg PO AC-SUPPER 10/15/21 10/17/21 Aspirin 325 mg PO BID 10/15/21 10/17/21 Calcium Carbonate [Calcium] 600 mg PO DAILY 10/15/21 10/17/21 Cetirizine HCl [Zyrtec] 10 mg PO DAILY PRN 10/15/21 10/17/21 Ferrous Sulfate [Iron] 325 mg PO DAILY 10/15/21 10/17/21 allopurinoL [Zyloprim] 100 mg PO HS 10/15/21 10/17/21 Tolterodine ER [Detrol LA] 2 mg PO DAILY 10/17/21 10/17/21 Allergies Allergy/AdvReac Type Severity Reaction Status Date / Time Sulfa (Sulfonamide Allergy Rash/Hives Verified 10/17/21 16:57 Antibiotics) Review of Systems ROS Statement: Those systems with pertinent positive or pertinent negative responses have been documented in the HPI. ROS Other: All systems not noted in ROS Statement are negative. Past Medical History Past Medical History: Blood Disorder, Diabetes Mellitus, GERD/Reflux, Hyperlipidemia, Hypertension, Renal Disease Additional Past Medical History / Comment(s): chronic kidney disease. iron deficiency anemia History of Any Multi-Drug Resistant Organisms: None Reported Past Surgical History: Breast Surgery, Section, Cholecystectomy, Hysterectomy Additional Past Surgical History / Comment(s): right breast lumpectomy. ovarian cyst removal. carotid bypass on the left Past Anesthesia/Blood Transfusion Reactions: No Reported Reaction Past Psychological History: No Psychological Hx Reported Smoking Status: Former smoker Past Alcohol Use History: None Reported Past Drug Use History: None Reported General Exam - General Exam Comments Initial Comments: 81-year-old female who appears to be resting comfortably in bed. No evidence of distress. Does not appear to be ill or toxic. Limitations: no limitations General appearance: alert, in no apparent distress Head exam: Present: atraumatic, normocephalic, normal inspection Eye exam: Present: normal appearance, PERRL, EOMI. Absent: scleral icterus, conjunctival injection, periorbital swelling ENT exam: Present: normal exam, normal oropharynx, mucous membranes moist. Absent: mucous membranes dry Neck exam: Present: normal inspection, full ROM. Absent: tenderness, meningismus, lymphadenopathy Respiratory exam: Present: normal lung sounds bilaterally. Absent: respiratory distress, wheezes, rales, rhonchi, stridor, chest wall tenderness, accessory muscle use Cardiovascular Exam: Present: regular rate, normal rhythm, normal heart sounds. Absent: systolic murmur, diastolic murmur, rubs, gallop, clicks GI/Abdominal exam: Present: soft, normal bowel sounds. Absent: distended, tenderness, guarding, rebound, rigid Rectal exam: Present: normal rectal tone, hemorrhoids (Noninflamed external hemorrhoid, no bleeding), other (Dark hard stool noted in the rectal vault). Absent: decreased rectal tone, mass, tenderness Extremities exam: Present: normal inspection, full ROM, normal capillary refill. Absent: tenderness, pedal edema, joint swelling, calf tenderness Back exam: Present: normal inspection Neurological exam: Present: alert, oriented X3, CN II-XII intact Psychiatric exam: Present: normal affect, normal mood Skin exam: Present: warm, dry, intact, normal color. Absent: rash Course Vital Signs 10/17/21 10/17/21 10/17/21 15:36 16:39 18:00 Temperature 98.1 F Pulse Rate 93 96 81 Respiratory 16 16 18 Rate Blood Pressure 154/75 151/89 136/56 O2 Sat by Pulse 100 95 99 Oximetry 10/17/21 19:13 Temperature Pulse Rate 89 Respiratory 20 Rate Blood Pressure 151/63 O2 Sat by Pulse 99 Oximetry - Reevaluation(s) Reevaluation #1: 10/17/21 18:17 Medical record is reviewed Symptoms are unchanged Patient is informed of results and questions answered Patient in no distress Reevaluation #2: 10/17/21 19:56 Medical record is reviewed Symptoms are improved here in the emergency department Patient is informed of results and questions answered Patient in no distress Patient hemodynamically stable - Consultations Consultation #1: Case discussed in detail with the on-call surgeon, Dr. Pike who agrees to consult on this patient for symptomatically anemia and gastrointestinal bleeding. Discussed with the APC from the [facility] for admission. EKG Findings - EKG Comments: EKG Findings:: EKG done at 1701 reveals a ventricular rate of 84. Normal intervals. Left axis deviation. Minimal voltage criteria for LVH. No evidence of acute ST or T-wave changes. P waves noted. No evidence of atrial fibrillation despite computerized interpretation. Medical Decision Making - Medical Decision Making All findings discussed with the patient. Patient hemoglobin 9.9. Occult blood positive. Patient has symptomatic anemia with mild CHF exacerbation. We'll consult cardiology and general surgery. Spoke with the general surgeon. Patient admitted to [facility]. Supervising physician is Dr. Sanchez The case was discussed in detail with ED attending physician. Presentation, findings, treatment plan discussed in detail. - Lab Data Result diagrams: 10/17/21 16:30 10/17/21 16:30 Lab Results 10/17/21 10/17/21 10/17/21 Range/Units 16:30 16:30 16:30 WBC 7.7 (3.8-10.6) k/uL RBC 3.43 L (3.80-5.40) m/uL Hgb 9.9 L D (11.4-16.0) gm/dL Hct 30.3 L (34.0-46.0) % MCV 88.4 (80.0-100.0) fL MCH 28.8 (25.0-35.0) pg MCHC 32.6 (31.0-37.0) g/dL RDW 18.6 H (11.5-15.5) % Plt Count 218 (150-450) k/uL MPV 7.5 Neutrophils % 79 % Lymphocytes % 14 % Monocytes % 4 % Eosinophils % 1 % Basophils % 0 % Neutrophils # 6.1 (1.3-7.7) k/uL Lymphocytes # 1.1 (1.0-4.8) k/uL Monocytes # 0.3 (0-1.0) k/uL Eosinophils # 0.1 (0-0.7) k/uL Basophils # 0.0 (0-0.2) k/uL Hypochromasia Moderate Poikilocytosis Slight Anisocytosis Slight PT 10.2 (9.0-12.0) sec INR 0.9 (<1.2) APTT 23.2 (22.0-30.0) sec Sodium 136 L (137-145) mmol/L Potassium 4.0 (3.5-5.1) mmol/L Chloride 104 (98-107) mmol/L Carbon Dioxide 25 (22-30) mmol/L Anion Gap 7 mmol/L BUN 34 H (7-17) mg/dL Creatinine 1.23 H (0.52-1.04) mg/dL Est GFR (CKD-EPI)AfAm 48 (>60 ml/min/1.73 sqM) Est GFR (CKD-EPI)NonAf 42 (>60 ml/min/1.73 sqM) Glucose 162 H (74-99) mg/dL Calcium 9.5 (8.4-10.2) mg/dL Phosphorus 3.5 (2.5-4.5) mg/dL Magnesium 1.9 (1.6-2.3) mg/dL Total Bilirubin 0.7 (0.2-1.3) mg/dL AST 32 (14-36) U/L ALT 15 (4-34) U/L Alkaline Phosphatase 65 (38-126) U/L Troponin I (0.000-0.034) ng/mL NT-Pro-B Natriuret Pep pg/mL Total Protein 6.4 (6.3-8.2) g/dL Albumin 3.9 (3.5-5.0) g/dL Urine Color Urine Appearance (Clear) Urine pH (5.0-8.0) Ur Specific [place] (1.001-1.035) Urine Protein (Negative) Urine Glucose (UA) (Negative) Urine Ketones (Negative) Urine Blood (Negative) Urine Nitrite (Negative) Urine Bilirubin (Negative) Urine Urobilinogen (<2.0) mg/dL Ur Leukocyte Esterase (Negative) Stool Occult Blood (Negative) Coronavirus (PCR) (Not Detectd) 10/17/21 10/17/21 10/17/21 Range/Units 16:30 16:30 16:30 WBC (3.8-10.6) k/uL RBC (3.80-5.40) m/uL Hgb (11.4-16.0) gm/dL Hct (34.0-46.0) % MCV (80.0-100.0) fL MCH (25.0-35.0) pg MCHC (31.0-37.0) g/dL RDW (11.5-15.5) % Plt Count (150-450) k/uL MPV Neutrophils % % Lymphocytes % % Monocytes % % Eosinophils % % Basophils % % Neutrophils # (1.3-7.7) k/uL Lymphocytes # (1.0-4.8) k/uL Monocytes # (0-1.0) k/uL Eosinophils # (0-0.7) k/uL Basophils # (0-0.2) k/uL Hypochromasia Poikilocytosis Anisocytosis PT (9.0-12.0) sec INR (<1.2) APTT (22.0-30.0) sec Sodium (137-145) mmol/L Potassium (3.5-5.1) mmol/L Chloride (98-107) mmol/L Carbon Dioxide (22-30) mmol/L Anion Gap mmol/L BUN (7-17) mg/dL Creatinine (0.52-1.04) mg/dL Est GFR (CKD-EPI)AfAm (>60 ml/min/1.73 sqM) Est GFR (CKD-EPI)NonAf (>60 ml/min/1.73 sqM) Glucose (74-99) mg/dL Calcium (8.4-10.2) mg/dL Phosphorus (2.5-4.5) mg/dL Magnesium (1.6-2.3) mg/dL Total Bilirubin (0.2-1.3) mg/dL AST (14-36) U/L ALT (4-34) U/L Alkaline Phosphatase (38-126) U/L Troponin I <0.012 (0.000-0.034) ng/mL NT-Pro-B Natriuret Pep 2410 pg/mL Total Protein (6.3-8.2) g/dL Albumin (3.5-5.0) g/dL Urine Color Urine Appearance (Clear) Urine pH (5.0-8.0) Ur Specific [place] (1.001-1.035) Urine Protein (Negative) Urine Glucose (UA) (Negative) Urine Ketones (Negative) Urine Blood (Negative) Urine Nitrite (Negative) Urine Bilirubin (Negative) Urine Urobilinogen (<2.0) mg/dL Ur Leukocyte Esterase (Negative) Stool Occult Blood Positive H (Negative) Coronavirus (PCR) (Not Detectd) 10/17/21 10/17/21 Range/Units 18:10 18:35 WBC (3.8-10.6) k/uL RBC (3.80-5.40) m/uL Hgb (11.4-16.0) gm/dL Hct (34.0-46.0) % MCV (80.0-100.0) fL MCH (25.0-35.0) pg MCHC (31.0-37.0) g/dL RDW (11.5-15.5) % Plt Count (150-450) k/uL MPV Neutrophils % % Lymphocytes % % Monocytes % % Eosinophils % % Basophils % % Neutrophils # (1.3-7.7) k/uL Lymphocytes # (1.0-4.8) k/uL Monocytes # (0-1.0) k/uL Eosinophils # (0-0.7) k/uL Basophils # (0-0.2) k/uL Hypochromasia Poikilocytosis Anisocytosis PT (9.0-12.0) sec INR (<1.2) APTT (22.0-30.0) sec Sodium (137-145) mmol/L Potassium (3.5-5.1) mmol/L Chloride (98-107) mmol/L Carbon Dioxide (22-30) mmol/L Anion Gap mmol/L BUN (7-17) mg/dL Creatinine (0.52-1.04) mg/dL Est GFR (CKD-EPI)AfAm (>60 ml/min/1.73 sqM) Est GFR (CKD-EPI)NonAf (>60 ml/min/1.73 sqM) Glucose (74-99) mg/dL Calcium (8.4-10.2) mg/dL Phosphorus (2.5-4.5) mg/dL Magnesium (1.6-2.3) mg/dL Total Bilirubin (0.2-1.3) mg/dL AST (14-36) U/L ALT (4-34) U/L Alkaline Phosphatase (38-126) U/L Troponin I (0.000-0.034) ng/mL NT-Pro-B Natriuret Pep pg/mL Total Protein (6.3-8.2) g/dL Albumin (3.5-5.0) g/dL Urine Color Light Yellow Urine Appearance Clear (Clear) Urine pH 5.0 (5.0-8.0) Ur Specific [place] 1.007 (1.001-1.035) Urine Protein Negative (Negative) Urine Glucose (UA) Negative (Negative) Urine Ketones Negative (Negative) Urine Blood Negative (Negative) Urine Nitrite Negative (Negative) Urine Bilirubin Negative (Negative) Urine Urobilinogen <2.0 (<2.0) mg/dL Ur Leukocyte Esterase Negative (Negative) Stool Occult Blood (Negative) Coronavirus (PCR) Not Detected (Not Detectd) Disposition Clinical Impression: Acute exacerbation of CHF (congestive heart failure), Occult blood positive stool, Symptomatic anemia Disposition: ADMITTED IP TO THIS HOSP Condition: Fair Is patient prescribed a controlled substance at d/c from ED?: No Referrals: Brett Bruce [Primary Care Provider] - 1-2 days Time of Disposition: 18:58 Decision to Admit Reason: Admit from EC Decision Time: 18:58
[2021-10-17 16:46] LABS: Anisocytosis Slight; Basophils % (A) 0 %; Eosinophils # (A) 0.1 k/uL (0-0.7); Eosinophils % (A) 1 %; HCT 30.3 % (34.0-46.0); Hypochromasia Moderate; Lymphocytes # (A) 1.1 k/uL (1.0-4.8); Lymphocytes % (A) 14 %; MCH 28.8 pg (25.0-35.0); MCHC 32.6 g/dL (31.0-37.0); MCV 88.4 fL (80.0-100.0); Mean Platelet Volume 7.5; Monocytes # (A) 0.3 k/uL (0-1.0); Monocytes % (A) 4 %; Neutrophils # (A) 6.1 k/uL (1.3-7.7); Neutrophils % (A) 79 %; Platelet Count 218 k/uL (150-450); Poikilocytosis Slight; RBC 3.43 m/uL (3.80-5.40); RDW 18.6 % (11.5-15.5); WBC 7.7 k/uL (3.8-10.6)
[2021-10-17 16:51] LABS: HGB 9.9 gm/dL (11.4-16.0)
[2021-10-17 17:05] LABS: INR 0.9 (<1.2); Partial Thromboplastin Time 23.2 sec (22.0-30.0); Prothrombin Time 10.2 sec (9.0-12.0)
[2021-10-17 17:10] LABS: Albumin 3.9 g/dL (3.5-5.0); Calcium 9.5 mg/dL (8.4-10.2); Magnesium 1.9 mg/dL (1.6-2.3); Phosphorus 3.5 mg/dL (2.5-4.5); Total Bilirubin 0.7 mg/dL (0.2-1.3); Total Protein 6.4 g/dL (6.3-8.2)
[2021-10-17] MEDS ORDERED: FUROSEMIDE 10 MG/ML 4 ML VIAL IV STA (18:58)
--- NOTE | 2021-10-17 19:16 | XR ---
EXAMINATION TYPE: XR chest 1V portable DATE OF EXAM: 10/17/2021 COMPARISON: 06/11/2021 HISTORY: Shortness of breath TECHNIQUE: Single frontal view of the chest is obtained. FINDINGS: There is no focal air space opacity, pleural effusion, or pneumothorax seen. The cardiac silhouette size is within normal limits. The osseous structures are intact. IMPRESSION: No acute process.
[2021-10-17 19:17] LABS: Appearance,Urine Clear (Clear); Bilirubin,Urine Negative (Negative); Blood,Urine Negative (Negative); Color,Urine Light Yellow; Glucose,Urine (UA) Negative (Negative); Ketones,Urine Negative (Negative); Leukocyte Esterase,Urine Negative (Negative); Nitrite,Urine Negative (Negative); Protein,Urine Negative (Negative); Specific Gravity,Urine 1.007 (1.001-1.035); Urobilinogen,Urine <2.0 mg/dL (<2.0)
[2021-10-17] MEDS ORDERED: ONDANSETRON 4 MG/2 ML VIAL IVP PRN (19:59)
[2021-10-17] MEDS ORDERED: ACETAMINOPHEN TAB 325 MG TAB PO PRN (19:59)
[2021-10-17] MEDS ORDERED: NALOXONE 0.4 MG/ML 1 ML VIAL IV PRN (19:59)
[2021-10-17] MEDS: PANTOPRAZOLE 40 MG/10 ML VIAL IV SCH (20:57)
[2021-10-17 21:57] LABS: Glucose,Whole Blood 151 mg/dL (75-99)
[2021-10-17] MEDS: INSULIN ASPART (NovoLOG) 100 UNIT/ML VIAL SQ SCH (22:38)
[2021-10-18 02:57] LABS: Glucose,Whole Blood 79 mg/dL (75-99)
[2021-10-18] MEDS: INSULIN ASPART (NovoLOG) 100 UNIT/ML VIAL SQ SCH ×4 (07:04→20:51)
[2021-10-18] MEDS ORDERED: DEXTROSE 50% SYRINGE 50 ML IVP ONE (07:08)
[2021-10-18] MEDS: PANTOPRAZOLE 40 MG/10 ML VIAL IV SCH (07:09)
[2021-10-18 07:25] LABS: Glucose,Whole Blood 68 mg/dL (75-99)
[2021-10-18 07:38] LABS: Glucose,Whole Blood 137 mg/dL (75-99)
--- NOTE | 2021-10-18 07:52 | P.GSCN ---
History of Present Illness Consult date: 10/18/21 History of present illness: REASON FOR CONSULTATION: Anemia HISTORY OF PRESENT ILLNESS: The patient is a 81-year-old female who was recently in the emergency room less than 3 days ago for hemoglobin 5.4. She was given 2 units of blood blood and then sent home. She returns back to the emergency room with generalized weakness and congestive heart failure exacerbation. Hemoglobin on repeat 9.9. Patient has not had recent upper endoscopy. She denies gross blood in her stools or hematemesis. She does report having feeling sick and nauseous last week. Patient does see a electro optical engineer for anemia. She has not had a prior bone marrow biopsy. She reports last colonoscopy over a year ago. She is on chronic iron supplement. Patient did have positive stool occult in the emergency room. As a result of her anemia and generalized weakness, Gen. surgery is consulted for anemia assessment. PAST MEDICAL HISTORY: See list and reviewed PAST SURGICAL HISTORY: See list and reviewed MEDICATIONS: See list and reviewed ALLERGIES: See list and reviewed SOCIAL HISTORY: See list and reviewed FAMILY HISTORY: See list and reviewed REVIEW OF ORGAN SYSTEMS: CONSTITUTIONAL: No fevers or chills. No recent weight loss. EYES: Denies any trouble with vision. No glasses. HEENT: No difficulties with hearing. No nosebleeds. Has difficulty swallowing. RESPIRATORY: Denies pneumonia. Denies any troubles with breathing or dyspnea on exertion. CARDIOVASCULAR: Has congestive heart failure. Has hyperlipidemia. Has hypertensive heart disease. History of carotid artery surgery. GASTROINTESTINAL: Has gastroesophageal reflux disease. Has iron deficiency ane debra. GENITOURINARY: Denies any blood in urine or increased urinary frequency. Has chronic renal disease. NEUROLOGICAL: Denies any numbness or tingling along the distal extremities. No seizure disorders or headaches. MUSCULOSKELETAL: Has back pain, stiffness or joint arthritis. Has gout. SKIN: No current skin cancer. No rash. PSYCHIATRIC: Denies current depression or suicidal thoughts. ENDOCRINE: Denies current thyroid disorders. Has diabetes type 2, [id number]. HEME/LYMPHATIC: Recent anemia, hemoglobin 5.4. Given blood transfusion. ALLERGY/IMMUNOLOGY: No immunoglobulin therapy. No immune deficiencies. BREAST: Prior breast lumpectomy. PHYSICAL EXAM: VITALS: Reviewed CONSTITUTIONAL: Well developed and in no acute distress. EYES: Conjuctivae without sclera icterus. Extraocular movements grossly intact. HEAD, EARS, NOSE, THROAT: Moist buccal mucosa. Head is atraumatic, normocephalic. Hears conversational speech. No nasal drainage. NECK: Supple. No JV distention. No thyroidomegaly. RESPIRATORY: Non-labored respirations and equal bilateral excursions. No gross wheezes. CARDIOVASCULAR: Regular rate and rhythm. Extremities without moderate edema. Palpable 2+ radial pulses. ABDOMEN: Nontender. LYMPH: No neck lymphadenopathy. MUSCULOSKELETAL: No clubbing cyanosis. SKIN: Warm and well perfused with good skin turgor. NEUROLOGIC: Cranial nerves II through XII grossly intact. Sensation upper and extremities intact. No focal or lateralizing signs. PSYCH: Appropriate affect. Alert and oriented to person, place and time. Displays appropriate insight. CLINCAL LABS: Reviewed. Hemoglobin 9.9. STOOL OCCULT positive. EKG: Reviewed, normal sinus rhythm. RECORDS: previous old records reviewed from ER visit 10/15/2021 with initial hemoglobin 5.4, given 2 units of blood. ASSESSMENT: 1. Iron deficiency anemia of unclear etiology 2. Congestive heart failure exacerbation PLAN: 1. Recommend upper endoscopy for severe anemia 2. Will reassess for colonoscopy and bowel prep pending stabilization of congestive heart failure. ADVANCE DIRECTIVE: Thank you for this kind consultation. Past Medical History Past Medical History: Blood Disorder, Heart Failure, Diabetes Mellitus, GERD/Reflux, Hyperlipidemia, Hypertension, Renal Disease Additional Past Medical History / Comment(s): chronic kidney disease. iron deficiency anemia History of Any Multi-Drug Resistant Organisms: None Reported Past Surgical History: Breast Surgery, Section, Cholecystectomy Additional Past Surgical History / Comment(s): right breast lumpectomy. ovarian cyst removal. carotid bypass on the left. left wrist plate put in many years ago Past Anesthesia/Blood Transfusion Reactions: No Reported Reaction Past Psychological History: No Psychological Hx Reported Smoking Status: Former smoker Past Alcohol Use History: None Reported Past Drug Use History: None Reported Medications and Allergies Home Medications Medication Instructions Recorded Confirmed Type Furosemide [Lasix] 20 mg PO DAILY 10/16/17 10/17/21 History Multivitamins, Thera [Multivitamin 1 tab PO DAILY 10/16/17 10/17/21 History (formulary)] Pantoprazole Sodium [Protonix] 40 mg PO DAILY 10/16/17 10/17/21 History Pioglitazone [Actos] 45 mg PO DAILY 10/16/17 10/17/21 History Simvastatin [Zocor] 80 mg PO DAILY 10/16/17 10/17/21 History Acarbose [Precose] 25 mg PO AC-LUNCH 12/18/18 10/17/21 History glipiZIDE XL [Glucotrol Xl] 10 mg PO DAILY 12/18/18 10/17/21 History Acarbose [Precose] 50 mg PO AC-SUPPER 10/15/21 10/17/21 History Aspirin 325 mg PO BID 10/15/21 10/17/21 History Calcium Carbonate [Calcium] 600 mg PO DAILY 10/15/21 10/17/21 History Cetirizine HCl [Zyrtec] 10 mg PO DAILY PRN 10/15/21 10/17/21 History Ferrous Sulfate [Iron] 325 mg PO DAILY 10/15/21 10/17/21 History allopurinoL [Zyloprim] 100 mg PO HS 10/15/21 10/17/21 History Tolterodine ER [Detrol LA] 2 mg PO DAILY 10/17/21 10/17/21 History Allergies Allergy/AdvReac Type Severity Reaction Status Date / Time Sulfa (Sulfonamide Allergy Rash/Hives Verified 10/17/21 16:57 Antibiotics) Surgical - Exam Vital Signs Temp Pulse Resp BP Pulse Ox 98.1 F 93 16 154/75 100 10/17/21 15:36 10/17/21 15:36 10/17/21 15:36 10/17/21 15:36 10/17/21 15:36 Results - Labs 10/17/21 16:30 10/17/21 16:30 Abnormal Lab Results - Last 24 Hours (Table) 10/17/21 10/17/21 10/17/21 Range/Units 16:30 16:30 16:30 RBC 3.43 L (3.80-5.40) m/uL Hgb 9.9 L D (11.4-16.0) gm/dL Hct 30.3 L (34.0-46.0) % RDW 18.6 H (11.5-15.5) % Sodium 136 L (137-145) mmol/L BUN 34 H (7-17) mg/dL Creatinine 1.23 H (0.52-1.04) mg/dL Glucose 162 H (74-99) mg/dL POC Glucose (mg/dL) (75-99) mg/dL Stool Occult Blood Positive H (Negative) 10/17/21 10/18/21 Range/Units 21:55 06:54 RBC (3.80-5.40) m/uL Hgb (11.4-16.0) gm/dL Hct (34.0-46.0) % RDW (11.5-15.5) % Sodium (137-145) mmol/L BUN (7-17) mg/dL Creatinine (0.52-1.04) mg/dL Glucose (74-99) mg/dL POC Glucose (mg/dL) 151 H 68 L (75-99) mg/dL Stool Occult Blood (Negative) Diabetes panel 10/17/21 Range/Units 16:30 Sodium 136 L (137-145) mmol/L Potassium 4.0 (3.5-5.1) mmol/L Chloride 104 (98-107) mmol/L Carbon Dioxide 25 (22-30) mmol/L BUN 34 H (7-17) mg/dL Creatinine 1.23 H (0.52-1.04) mg/dL Glucose 162 H (74-99) mg/dL Calcium 9.5 (8.4-10.2) mg/dL AST 32 (14-36) U/L ALT 15 (4-34) U/L Alkaline Phosphatase 65 (38-126) U/L Total Protein 6.4 (6.3-8.2) g/dL Albumin 3.9 (3.5-5.0) g/dL Calcium panel 10/17/21 Range/Units 16:30 Calcium 9.5 (8.4-10.2) mg/dL Phosphorus 3.5 (2.5-4.5) mg/dL Albumin 3.9 (3.5-5.0) g/dL Pituitary panel 10/17/21 Range/Units 16:30 Sodium 136 L (137-145) mmol/L Potassium 4.0 (3.5-5.1) mmol/L Chloride 104 (98-107) mmol/L Carbon Dioxide 25 (22-30) mmol/L BUN 34 H (7-17) mg/dL Creatinine 1.23 H (0.52-1.04) mg/dL Glucose 162 H (74-99) mg/dL Calcium 9.5 (8.4-10.2) mg/dL Adrenal panel 10/17/21 Range/Units 16:30 Sodium 136 L (137-145) mmol/L Potassium 4.0 (3.5-5.1) mmol/L Chloride 104 (98-107) mmol/L Carbon Dioxide 25 (22-30) mmol/L BUN 34 H (7-17) mg/dL Creatinine 1.23 H (0.52-1.04) mg/dL Glucose 162 H (74-99) mg/dL Calcium 9.5 (8.4-10.2) mg/dL Total Bilirubin 0.7 (0.2-1.3) mg/dL AST 32 (14-36) U/L ALT 15 (4-34) U/L Alkaline Phosphatase 65 (38-126) U/L Total Protein 6.4 (6.3-8.2) g/dL Albumin 3.9 (3.5-5.0) g/dL
[2021-10-18] MEDS ORDERED: LIDOCAINE 2% INJ 20 MG/ML (2 ML VIAL) ONE (08:01)
[2021-10-18] MEDS ORDERED: PROPOFOL 10 MG/ML 20 ML VIAL IV ONE (08:01)
[2021-10-18] MEDS ORDERED: LACTATED RINGERS 1,000 ML IV ONE (08:09)
--- NOTE | 2021-10-18 08:19 | P.PCN ---
Date of Procedure: 10/18/21 Description of Procedure: PREOPERATIVE DIAGNOSIS: Acute blood loss anemia, hemoglobin 5.4 Positive stool occult blood Status post blood transfusions Iron deficiency anemia Gastroesophageal reflux disease POSTOPERATIVE DIAGNOSIS: Anemia Positive stool occult blood Status post blood transfusions Iron deficiency anemia Gastroesophageal reflux disease OPERATION: Esophagogastroduodenoscopy SURGEON: Adriana Nicole MD ANESTHESIA: MAC. INDICATIONS: The patient is a 81-year-old female who presents with severe anemia including positive occult stool test for blood. Benefits and risks of the procedure were described. Informed consent was obtained. DESCRIPTION: The patient was brought into the endoscopy suite and laid in the left lateral decubitus position. An Olympus gastroscope was passed along the posterior oropharynx down to the distal esophagus where the squamocolumnar junction was encountered at 35 cm from the incisors. The stomach was entered and no bile reflux was found. Additional findings are listed below. Biopsies with cold forceps were obtained of the antrum. The first through third portion of the duodenum was examined and unremarkable. Retroflexion of the scope confirmed Hill grade 2 lower esophageal valve. The squamocolumnar junction demonstrated LA grade A erosive esophagitis. The stomach was desufflated. The patient tolerated the procedure well. FINDINGS: Squamocolumnar junction 35 cm from the incisors. Diaphragmatic hiatus at 35 cm. Hill grade 2 lower esophageal valve. LA grade A erosive esophagitis. No active duodenitis. No stigmata of bleeding RECOMMENDATIONS: 1. Heart healthy diet, low sodium 2. Recommend lower endoscopy for angiodysplasias and positive stool occult blood
[2021-10-18 10:51] LABS: Basophils # (A) 0.01 X 10*3/uL (0.00-0.10); Basophils % (A) 0.2 %; Eosinophils # (A) 0.16 X 10*3/uL (0.04-0.35); Eosinophils % (A) 2.5 %; HCT 26.2 % (37.2-46.3); Immature Grans, Automated 0.5 %; Lymphocytes # (A) 1.19 X 10*3/uL (0.90-5.00); Lymphocytes % (A) 18.6 %; MCH 27.9 pg (27.0-32.0); MCHC 30.5 g/dL (32.0-37.0); MCV 91.3 fL (80.0-97.0); Mean Platelet Volume 11.2 fL (9.5-12.2); Monocytes # (A) 0.58 X 10*3/uL (0.20-1.00); NRBC Per 100 WBC 0 /100 WBCS (0.0-0.0); Neutrophils # (A) 4.44 X 10*3/uL (1.80-7.70); Neutrophils % (A) 69.2 %; Platelet Count 224 X 10*3/uL (140-440); RBC 2.87 X 10*6/uL (4.10-5.20); RDW 19.1 % (11.5-14.5); WBC 6.41 X 10*3/uL (4.50-10.00)
[2021-10-18 11:13] LABS: Anion Gap 11.1 mmol/L (10.00-18.00); BUN/Creat Ratio 20.93 Ratio (12.00-20.00); Blood Urea Nitrogen 31.4 mg/dL (9.0-27.0); Calcium 9.3 mg/dL (8.7-10.3); Carbon Dioxide 25.6 mmol/L (20.0-27.5); Non-African American GFR(CKD) 32.8 (60.0-200.0); Potassium 4.2 mmol/L (3.5-5.5)
[2021-10-18 11:18] LABS: Glucose,Whole Blood 126 mg/dL (75-99)
--- NOTE | 2021-10-18 11:50 | P.CRDCN ---
History of Present Illness Consult date: 10/18/21 History of present illness: HISTORY OF PRESENT ILLNESS: This is a 81-year-old female with a past medical history significant for hypertension, hyperlipidemia, diabetes and valvular heart disease. Patient follows in the office with Dr. Hare. We have been asked to see the patient in consultation for CHF. Patient examined at the bedside. Patient states she presented to the hospital with a chief complaint of SOB. Patient was found to have a hemoglobin of 5.4 on 10/15/2021. Patient received 2 units of RBCs. Hemoglobin this morning is 8.0. She states that she no longer has shortness of breath after receiving her blood transfusion. She did receive a 11 time dose of IV Lasix. She underwent EGD this morning revealing esophagitis. She is s cheduled for colonoscopy on Monday. * EKG reveals sinus mechanism with no signs of acute ischemia * Chest xray negative for acute process * Laboratory data: WBC 6.41. Hemoglobin 8.0. Platelet count 224. Sodium 143. Potassium 4.2. BUN 31. Creatinine 1.5. Troponin negative 3. ProBNP 2410. * Current home cardiac medications include aspirin 325 mg twice a day, Lasix 20 mg daily, simvastatin 80 mg daily * Most recent echocardiogram obtained in June 2021 revealed ejection fraction 55-60%, [id number] mitral regurgitation, and mild tricuspid regurgitation * Patient underwent Lexiscan stress test in June 2021 which was negative for ischemia REVIEW OF SYSTEMS: At the time of my exam: CONSTITUTIONAL: Denies fever or chills. HEENT: Denies blurred vision, vision changes, or eye pain. Denies hemoptysis CARDIOVASCULAR: Denies chest pain. Denies orthopnea. Denies PND. Denies palpitations RESPIRATORY: Denies shortness of breath. GASTROINTESTINAL: Denies abdominal pain. Denies nausea or vomiting. HEMATOLOGIC: Denies bleeding disorders. GENITOURINARY: Denies any blood in urine. SKIN: Denies pruitis. Denies rash. PHYSICAL EXAM: VITAL SIGNS: Reviewed. GENERAL: Well-developed in no acute distress. HEENT: Head is normocephalic. Pupils are equal, round. Sclerae anicteric. Mucous membranes of the mouth are moist. Neck supple. No JVD or thyromegaly LUNGS: Respirations even and unlabored. Lungs essentially clear to auscultation bilaterally. HEART: Regular rate and rhythm. S1 and S2 heard. Systolic murmur noted. ABDOMEN: Soft. Nondistended. Nontender. EXTREMITIES: Normal range of motion. No clubbing or cyanosis. Peripheral pulses intact. No lower extremity edema NEUROLOGIC: Awake and alert. Oriented x 3. ASSESSMENT: Anemia, status post EGD Acute on chronic heart failure with preserved ejection fraction, resolved Hypertension Hyperlipidemia Diabetes Valvular heart disease PLAN: No need to repeat echo Resume home cardiac medications Patient is stable from a cardiac standpoint. We will sign off. Please reconsult if needed. Nurse practitioner note has been reviewed by physician. Signing provider agrees with the documented findings, assessment, and plan of care. Past Medical History Past Medical History: Blood Disorder, Heart Failure, Diabetes Mellitus, GERD/Reflux, Hyperlipidemia, Hypertension, Renal Disease Additional Past Medical History / Comment(s): chronic kidney disease. iron deficiency anemia History of Any Multi-Drug Resistant Organisms: None Reported Past Surgical History: Breast Surgery, Section, Cholecystectomy Additional Past Surgical History / Comment(s): right breast lumpectomy. ovarian cyst removal. carotid bypass on the left. left wrist plate put in many years ago Past Anesthesia/Blood Transfusion Reactions: No Reported Reaction Past Psychological History: No Psychological Hx Reported Smoking Status: Former smoker Past Alcohol Use History: None Reported Past Drug Use History: None Reported Medications and Allergies Home Medications Medication Instructions Recorded Confirmed Type Furosemide [Lasix] 20 mg PO DAILY 10/16/17 10/17/21 History Multivitamins, Thera [Multivitamin 1 tab PO DAILY 10/16/17 10/17/21 History (formulary)] Pantoprazole Sodium [Protonix] 40 mg PO DAILY 10/16/17 10/17/21 History Pioglitazone [Actos] 45 mg PO DAILY 10/16/17 10/17/21 History Simvastatin [Zocor] 80 mg PO DAILY 10/16/17 10/17/21 History Acarbose [Precose] 25 mg PO AC-LUNCH 12/18/18 10/17/21 History glipiZIDE XL [Glucotrol Xl] 10 mg PO DAILY 12/18/18 10/17/21 History Acarbose [Precose] 50 mg PO AC-SUPPER 10/15/21 10/17/21 History Aspirin 325 mg PO BID 10/15/21 10/17/21 History Calcium Carbonate [Calcium] 600 mg PO DAILY 10/15/21 10/17/21 History Cetirizine HCl [Zyrtec] 10 mg PO DAILY PRN 10/15/21 10/17/21 History Ferrous Sulfate [Iron] 325 mg PO DAILY 10/15/21 10/17/21 History allopurinoL [Zyloprim] 100 mg PO HS 10/15/21 10/17/21 History Tolterodine ER [Detrol LA] 2 mg PO DAILY 10/17/21 10/17/21 History Allergies Allergy/AdvReac Type Severity Reaction Status Date / Time Sulfa (Sulfonamide Allergy Rash/Hives Verified 10/17/21 16:57 Antibiotics) Physical Exam Vitals: Vital Signs Temp Pulse Pulse Resp BP BP Pulse Ox 10/18/21 08:00 98.7 F 82 18 107/50 97 10/18/21 02:22 99.0 F 68 16 118/63 97 10/17/21 21:01 71 16 141/73 97 10/17/21 20:25 98.0 F 80 18 139/68 99 10/17/21 19:13 89 20 151/63 99 10/17/21 18:00 81 18 136/56 99 10/17/21 16:39 96 16 151/89 95 10/17/21 15:36 98.1 F 93 16 154/75 100 Intake and Output 10/17/21 10/18/21 10/18/21 22:59 06:59 14:59 Intake Total 100 Balance 100 Intake: IV 100 Other: # Voids 3 Weight 68.039 kg Results 10/18/21 06:48 10/18/21 06:48 Cardiac Enzymes 10/17/21 10/17/21 10/17/21 Range/Units 16:30 16:30 22:01 AST 32 (14-36) U/L Troponin I <0.012 <0.012 (0.000-0.034) ng/mL 10/18/21 Range/Units 00:59 AST (14-36) U/L Troponin I <0.012 (0.000-0.034) ng/mL Coagulation 10/17/21 Range/Units 16:30 PT 10.2 (9.0-12.0) sec APTT 23.2 (22.0-30.0) sec CBC 10/17/21 10/18/21 Range/Units 16:30 06:48 WBC 7.7 6.41 (3.8-10.6) k/uL RBC 3.43 L 2.87 L (3.80-5.40) m/uL Hgb 9.9 L D 8.0 L (11.4-16.0) gm/dL Hct 30.3 L 26.2 L (34.0-46.0) % Plt Count 218 224 (150-450) k/uL Comprehensive Metabolic Panel 10/17/21 10/18/21 Range/Units 16:30 06:48 Sodium 136 L 143 (137-145) mmol/L Potassium 4.0 4.2 (3.5-5.1) mmol/L Chloride 104 106 (98-107) mmol/L Carbon Dioxide 25 25.6 (22-30) mmol/L BUN 34 H 31.4 H (7-17) mg/dL Creatinine 1.23 H 1.5 (0.52-1.04) mg/dL Glucose 162 H 57 L (74-99) mg/dL Calcium 9.5 9.3 (8.4-10.2) mg/dL AST 32 (14-36) U/L ALT 15 (4-34) U/L Alkaline Phosphatase 65 (38-126) U/L Total Protein 6.4 (6.3-8.2) g/dL Albumin 3.9 (3.5-5.0) g/dL Current Medications Generic Name Dose Route Start Last Admin Trade Name Freq PRN Reason Stop Dose Admin Acetaminophen 650 mg 10/17/21 19:59 Acetaminophen Tab 325 Mg Tab PO Q6HR PRN Mild Pain or Fever > 100.5 Insulin Aspart 0 unit 10/17/21 21:00 10/18/21 07:04 Insulin Aspart (Novolog) 100 Unit/Ml Vial SQ Not Given ACHS NING Protocol Naloxone HCl 0.2 mg 10/17/21 19:59 Naloxone 0.4 Mg/Ml 1 Ml Vial IV Q2M PRN Opioid Reversal Ondansetron HCl 4 mg 10/17/21 19:59 Ondansetron 4 Mg/2 Ml Vial IVP Q8HR PRN Nausea And Vomiting Pantoprazole Sodium 40 mg 10/17/21 20:15 10/18/21 07:09 Pantoprazole 40 Mg/10 Ml Vial IV 40 mg DAILY NING Administration Intake and Output 10/17/21 10/18/21 10/18/21 22:59 06:59 14:59 Intake Total 100 Balance 100 Intake: IV 100 Other: # Voids 3 Weight 68.039 kg 10/18/21 06:48 10/18/21 06:48
--- NOTE | 2021-10-18 13:53 | P.HPIM ---
History of Present Illness H&P Date: 10/18/21 This is a pleasant 81-year-old female who presented to the emergency department for generalized weakness along with fatigue and lightheadedness with some slight shortness of breath with exertion that had been progressively getting worse over the last few days. Patient did have a hemoglobin originally of 5.4 and was transfused 2 units and felt somewhat better although continued to feel generaliz ed weakness. Patient denies any active bleeding and reports that she sees Dr. Wood hematology in the outpatient setting for anemia and is on 325 mg of iron tablets daily for low iron and noticed that she has continued dark stools. Patient has a past medical history of CHF, iron deficiency anemia, diabetes mellitus, gastroesophageal reflux disease, hyperlipidemia, hypertension, and chronic kidney disease. Patient had a recent change in primary care provider as her provider left and is scheduled to see Dr. Bruce in the outpatient setting. Patient also sees Dr. Dinero with nephrology for her chronic kidney disease. Chest x-ray on admission shows no acute process. EKG showed atrial fibri llation. General surgery was consulted for the possible GI bleed and underwent EGD showing hill grade 2 lower esophageal valve and the squamous column in her junction demonstrated LA grade a erosive esophagitis with no biopsies obtained. Occult Blood was positive and patient will be prepped and scheduled for colonoscopy on Monday with Dr. Pike. Cardiology also consulted for CHF and per cardiology had recent workup including stress test and echo in the office earlier this year. The echo revealed an EF of 55-60% with mild to moderate mitral regurgitation and mild tricuspid regurgitation present. Patient underwent Lexiscan stress test in June which was negative for ischemia per cardiology note. Cardiology will follow and patient resumed on appropriate home medications. Review Of Systems: Constitutional: No fever, no chills, no night sweats. No weight change. Reports of weakness, fatigue and lethargy. Reports daytime sleepiness. EENT: No headache. No blurred vision or double vision, no loss of vision. No loss of Hearing, no ringing in the ears, no dizziness. No nasal drainage or congestion. No epistaxis. No sore throat. Lungs: Reports intermittent shortness of breath with exertion, cough, no sputum production. No wheezing. Cardiovascular: No chest pain, no lower extremity edema. No palpitations. No paroxysmal nocturnal dyspnea. No orthopnea. No lightheadedness or dizziness. No syncopal episodes. Abdominal: No abdominal pain. No nausea, vomiting. No diarrhea. No constipation. No bloody or tarry stools.. No loss of appetite. Genitourinary: No dysuria, increased frequency, urgency. No urinary retention. Musculoskeletal: No myalgias. No muscle weakness, no gait dysfunction, no frequent falls. No back pain. No neck pain. Integumentary: No wounds, no lesions. No rash or pruritus. No unusual bruising. No change in hair or nails. Neurologic: No aphasia. No facial droop. No change in mentation. No head injury. No headache. No paralysis. No paresthesia. Psychiatric: No depression. No anxiety. No mood swings. Endocrine: No abnormal blood sugars. No weight change. No excessive sweating or thirst. No cold intolerance. Active Medications Acetaminophen (Acetaminophen Tab 325 Mg Tab) 650 mg PO Q6HR PRN PRN Reason: Mild Pain or Fever > 100.5 Insulin Aspart (Insulin Aspart (Novolog) 100 Unit/Ml Vial) 0 unit SQ [facility]; Protocol Last Admin: 10/18/21 07:04 Dose: Not Given Documented by: Naloxone HCl (Naloxone 0.4 Mg/Ml 1 Ml Vial) 0.2 mg IV Q2M PRN PRN Reason: Opioid Reversal Ondansetron HCl (Ondansetron 4 Mg/2 Ml Vial) 4 mg IVP Q8HR PRN PRN Reason: Nausea And Vomiting Pantoprazole Sodium (Pantoprazole 40 Mg/10 Ml Vial) 40 mg IV DAILY [facility] Last Admin: 10/18/21 07:09 Dose: 40 mg Documented by: Physical exam: Gen: This is a 81-year-old female awake, alert and oriented 3, well-developed, well-nourished. Pale HEENT: Head is atraumatic, normocephalic. Pupils equal, round. Sclerae is anicteric. NECK: Supple. No JVD. No lymphadenopathy. No thyromegaly. LUNGS: Clear to auscultation. No wheezes or rhonchi. No intercostal retractions. HEART: Regular rate and rhythm. No murmur. ABDOMEN: Soft. Bowel sounds are present. No masses. No tenderness. EXTREMITIES: No pedal edema. No calf tenderness. NEUROLOGICAL: Patient is awake, alert and oriented x3. Cranial nerves 2 through 12 are grossly intact. Assessment: Anemia, most likely iron deficiency anemia, follows with Dr. Wood in the outpatient setting and takes iron supplements Patient is status post EGD showing no evidence of bleed and esophagitis Positive occult blood secondary to above Generalized weakness most likely secondary to anemia Acute on chronic congestive heart failure with preserved EF, June 2021 echo showed an EF of 55-60% Diabetes mellitus Gastroesophageal reflux disease Hyperlipidemia hypertension History of iron deficiency anemia, sees Dr. Wood in the outpatient setting Chronic kidney disease GI prophylaxis DVT prophylaxis Full code Plan: Patient was seen and evaluated by general surgery and underwent EGD showing mild esophagitis with no biopsies obtained and plans on doing lower endoscopy colonoscopy this Monday and patient will be prepped and has been resumed on diet for now. Patient was evaluated by cardiology for CHF and home medications have been resumed and patient will continue on low-dose Lasix and will follow-up with repeat labs. Patient reports to seeing Dr. Wood in the outpatient setting for iron deficiency anemia and will order some iron studies and if low will initiate IV iron. Hemoglobin is stable at 8.0 with no active bleeding noted at this time. Patient denies any further shortness of breath and was given a dose of IV Lasix. Originally ordered an echo although after discussing with cardiology echo was just done in June 2021 showing a preserved EF of 55- 60%. Will follow-up with repeat labs and monitor hemoglobin closely. The impression and plan of care has been dictated by Sunitha Leone, Nurse Practitioner as directed. Dr. Sivakumar MD I have performed a history and examination and MDM of this patient, discussed the same with the dictator, and agree with the dictator's assessment and plan as written ,documented as a scribe. Based on total visit time, I have performed more than 50% of the visit. Past Medical History Past Medical History: Blood Disorder, Heart Failure, Diabetes Mellitus, GERD/Reflux, Hyperlipidemia, Hypertension, Renal Disease Additional Past Medical History / Comment(s): chronic kidney disease. iron deficiency anemia History of Any Multi-Drug Resistant Organisms: None Reported Past Surgical History: Breast Surgery, Section, Cholecystectomy Additional Past Surgical History / Comment(s): right breast lumpectomy. ovarian cyst removal. carotid bypass on the left. left wrist plate put in many years ago Past Anesthesia/Blood Transfusion Reactions: No Reported Reaction Past Psychological History: No Psychological Hx Reported Smoking Status: Former smoker Past Alcohol Use History: None Reported Past Drug Use History: None Reported Medications and Allergies Home Medications Medication Instructions Recorded Confirmed Type Furosemide [Lasix] 20 mg PO DAILY 10/16/17 10/17/21 History Multivitamins, Thera [Multivitamin 1 tab PO DAILY 10/16/17 10/17/21 History (formulary)] Pantoprazole Sodium [Protonix] 40 mg PO DAILY 10/16/17 10/17/21 History Pioglitazone [Actos] 45 mg PO DAILY 10/16/17 10/17/21 History Simvastatin [Zocor] 80 mg PO DAILY 10/16/17 10/17/21 History Acarbose [Precose] 25 mg PO AC-LUNCH 12/18/18 10/17/21 History glipiZIDE XL [Glucotrol Xl] 10 mg PO DAILY 12/18/18 10/17/21 History Acarbose [Precose] 50 mg PO AC-SUPPER 10/15/21 10/17/21 History Aspirin 325 mg PO BID 10/15/21 10/17/21 History Calcium Carbonate [Calcium] 600 mg PO DAILY 10/15/21 10/17/21 History Cetirizine HCl [Zyrtec] 10 mg PO DAILY PRN 10/15/21 10/17/21 History Ferrous Sulfate [Iron] 325 mg PO DAILY 10/15/21 10/17/21 History allopurinoL [Zyloprim] 100 mg PO HS 10/15/21 10/17/21 History Tolterodine ER [Detrol LA] 2 mg PO DAILY 10/17/21 10/17/21 History Allergies Allergy/AdvReac Type Severity Reaction Status Date / Time Sulfa (Sulfonamide Allergy Rash/Hives Verified 10/17/21 16:57 Antibiotics) Physical Exam Vitals: Vital Signs Temp Pulse Pulse Resp BP BP Pulse Ox 10/18/21 08:00 98.7 F 82 18 107/50 97 10/18/21 02:22 99.0 F 68 16 118/63 97 10/17/21 21:01 71 16 141/73 97 10/17/21 20:25 98.0 F 80 18 139/68 99 10/17/21 19:13 89 20 151/63 99 10/17/21 18:00 81 18 136/56 99 10/17/21 16:39 96 16 151/89 95 10/17/21 15:36 98.1 F 93 16 154/75 100 Intake and Output 10/17/21 10/18/21 10/18/21 22:59 06:59 14:59 Intake Total 100 Balance 100 Intake: IV 100 Other: # Voids 3 Weight 68.039 kg Results CBC & Chem 7: 10/18/21 06:48 10/18/21 06:48 Labs: Abnormal Lab Results - Last 24 Hours (Table) 10/17/21 10/17/21 10/17/21 Range/Units 16:30 16:30 16:30 RBC 3.43 L (3.80-5.40) m/uL Hgb 9.9 L D (11.4-16.0) gm/dL Hct 30.3 L (34.0-46.0) % RDW 18.6 H (11.5-15.5) % Sodium 136 L (137-145) mmol/L BUN 34 H (7-17) mg/dL Creatinine 1.23 H (0.52-1.04) mg/dL Glucose 162 H (74-99) mg/dL POC Glucose (mg/dL) (75-99) mg/dL Stool Occult Blood Positive H (Negative) 10/17/21 10/18/21 10/18/21 Range/Units 21:55 06:54 07:35 RBC (3.80-5.40) m/uL Hgb (11.4-16.0) gm/dL Hct (34.0-46.0) % RDW (11.5-15.5) % Sodium (137-145) mmol/L BUN (7-17) mg/dL Creatinine (0.52-1.04) mg/dL Glucose (74-99) mg/dL POC Glucose (mg/dL) 151 H 68 L 137 H (75-99) mg/dL Stool Occult Blood (Negative) Assessment and Plan Time with Patient: Greater than 30
[2021-10-18 16:25] LABS: Glucose,Whole Blood 251 mg/dL (75-99)
[2021-10-18 19:15] LABS: % Iron Saturation 8.55 (12.00-45.00); Ferritin 43.6 ng/mL (10.0-291.0)
[2021-10-18 20:38] LABS: Glucose,Whole Blood 96 mg/dL (75-99)
[2021-10-19 02:45] LABS: Glucose,Whole Blood 123 mg/dL (75-99)
[2021-10-19 07:35] LABS: Glucose,Whole Blood 112 mg/dL (75-99)
[2021-10-19] MEDS: INSULIN ASPART (NovoLOG) 100 UNIT/ML VIAL SQ SCH ×4 (08:52→21:55)
[2021-10-19 09:56] LABS: Anisocytosis Slight; Basophils % (A) 0 %; Eosinophils # (A) 0.2 k/uL (0-0.7); Eosinophils % (A) 2 %; HCT 32.1 % (34.0-46.0); HGB 9.8 gm/dL (11.4-16.0); Hypochromasia Marked; Lymphocytes # (A) 0.8 k/uL (1.0-4.8); Lymphocytes % (A) 12 %; MCH 27.9 pg (25.0-35.0); MCHC 30.5 g/dL (31.0-37.0); MCV 91.5 fL (80.0-100.0); Mean Platelet Volume 8.3; Monocytes # (A) 0.3 k/uL (0-1.0); Monocytes % (A) 5 %; Neutrophils # (A) 5.2 k/uL (1.3-7.7); Neutrophils % (A) 78 %; Platelet Count 261 k/uL (150-450); Poikilocytosis Slight; RBC 3.51 m/uL (3.80-5.40); RDW 18.6 % (11.5-15.5); WBC 6.7 k/uL (3.8-10.6)
[2021-10-19] MEDS ORDERED: SODIUM FERRIC GLUCONAT-SUCROSE 125 MG in SODIUM CHLORIDE 0.9% 100 ML IVPB ONE (10:00)
[2021-10-19 10:02] LABS: African American GFR (CKD) 37 (>60 ml/min/1.73 sqM); Anion Gap 8 mmol/L; Blood Urea Nitrogen 32 mg/dL (7-17); Carbon Dioxide 26 mmol/L (22-30); Chloride 101 mmol/L (98-107); Glucose 257 mg/dL (74-99); Non-African American GFR(CKD) 32 (>60 ml/min/1.73 sqM); Sodium 135 mmol/L (137-145)
[2021-10-19] MEDS: ATORVASTATIN 40 MG TAB PO SCH (10:09)
[2021-10-19] MEDS: FUROSEMIDE 20 MG TAB PO SCH (10:09)
[2021-10-19] MEDS: PANTOPRAZOLE 40 MG/10 ML VIAL IV SCH (10:11)
[2021-10-19 11:22] LABS: Glucose,Whole Blood 256 mg/dL (75-99)
[2021-10-19] MEDS ORDERED: POLYETHYLENE GLYCOL LYTES SOLN 4,000 ML SOLN.RECON PO ONE (13:00)
--- NOTE | 2021-10-19 14:40 | P.PN ---
Subjective Progress Note Date: 10/19/21 CHIEF COMPLAINT: Anemia HISTORY OF PRESENT ILLNESS: Patient presented to hospital with a hemoglobin of 5.4. She required blood transfusions. Stool for occult blood is positive. Patient status post EGD that showed no evidence of active bleeding N did reveal erosive esophagitis. Afebrile. WBC is 6.7 hemoglobin has gone up from 8 to 9.8 platelets 261 sodium 135 potassium 4.0 creatinine 1.55 PHYSICAL EXAM: VITAL SIGNS: Reviewed GENERAL: Well-developed in no acute distress. HEENT: No sclera icterus. Extraocular movements grossly intact. Moist buccal mucosa. Head is atraumatic, normocephalic. Hears conversational speech. No nasal drainage. NECK: Supple without lymphadenopathy. CHEST: Non-labored respirations and equal bilateral excursions. CARDIOVASCULAR: Palpable 2+ radial pulses. ABDOMEN: Soft. Nondistended. Nontender. MUSCULOSKELETAL: No clubbing or cyanosis. NEUROLOGIC: No focal or lateralizing signs. Cranial nerves II through XII grossly intact. PSYCH: Appropriate affect. Alert and oriented to person, place and time. SKIN: Well perfused. Good skin turgor. ASSESSMENT: 1. Anemia status post EGD did reveal erosive esophagitis, no evidence of bleeding 2. Positive stool occult blood 3. Status post blood transfusions 4. Iron deficiency anemia 5. Gastroesophageal reflux disease 6. Acute on chronic heart failure with preserved ejection fraction, resolved PLAN: -Patient scheduled for colonoscopy tomorrow, 10/20/[address] 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 Signing provider agrees with the documented findings, assessment, and plan of care. CHIEF COMPLAINT: Anemia HISTORY OF PRESENT ILLNESS: The patient is a 81-year-old female with acute anemia requiring blood transfusions for Hgb 5.4. She has anemia with Hgb at 9.8 today. No reports of abdominal pain. No hematemesis. PHYSICAL EXAM: VITALS: Reviewed CONSTITUTIONAL: Well developed and in no acute distress. EYES: Conjuctivae without sclera icterus. Extraocular movements grossly intact. HEAD, EARS, NOSE, THROAT: Moist buccal mucosa. Head is atraumatic, normocephalic. Hears conversational speech. No nasal drainage. NECK: Supple. No JV distention. No thyroidomegaly. RESPIRATORY: Non-labored respirations and equal bilateral excursions. No gross wheezes. CARDIOVASCULAR: Palpable 2+ radial pulses. ABDOMEN: Nontender. MUSCULOSKELETAL: No clubbing cyanosis. SKIN: Warm and well perfused with good skin turgor. NEUROLOGIC: Cranial nerves II through XII grossly intact. No focal or lateralizing signs. PSYCH: Appropriate affect. Alert and oriented to person, place and time. Displays appropriate insight. CLINCAL LABS: Reviewed. Hgb 9.9 to 9.8, today. BNP over 1999 ASSESSMENT: 1. Iron deficiency anemia of unclear etiology 2. Congestive heart failure exacerbation PLAN: 1. Recommend lower endoscopy for anemia 2. Low volume colonoscopy prep described. Objective - Vital Signs Vital signs: Vital Signs Temp 97.5 F L 10/19/21 14:00 Pulse 79 10/19/21 14:00 Resp 16 10/19/21 14:00 BP 99/65 10/19/21 14:00 Pulse Ox 100 10/19/21 14:00 Intake & Output 10/18/21 10/19/21 10/19/21 18:59 06:59 18:59 Intake Total 100 250 Balance 100 250 Intake: IV 100 Oral 250 Other: Voiding Method Toilet Toilet # Voids 1 3 - Labs CBC & Chem 7: 10/19/21 09:25 10/19/21 09:25 Labs: Abnormal Lab Results - Last 24 Hours (Table) 10/18/21 10/18/21 10/19/21 Range/Units 13:46 16:24 02:43 RBC (3.80-5.40) m/uL Hgb (11.4-16.0) gm/dL Hct (34.0-46.0) % MCHC (31.0-37.0) g/dL RDW (11.5-15.5) % Lymphocytes # (1.0-4.8) k/uL Sodium (137-145) mmol/L BUN (7-17) mg/dL Creatinine (0.52-1.04) mg/dL Glucose (74-99) mg/dL POC Glucose (mg/dL) 251 H 123 H (75-99) mg/dL Iron 28 L (50-170) ug/dL % Saturation 8.55 L (12.00-45.00) 10/19/21 10/19/2122 Range/Units 07:01 09:25 09:25 RBC 3.51 L (3.80-5.40) m/uL Hgb 9.8 L (11.4-16.0) gm/dL Hct 32.1 L (34.0-46.0) % MCHC 30.5 L (31.0-37.0) g/dL RDW 18.6 H (11.5-15.5) % Lymphocytes # 0.8 L (1.0-4.8) k/uL Sodium 135 L (137-145) mmol/L BUN 32 H (7-17) mg/dL Creatinine 1.55 H (0.52-1.04) mg/dL Glucose 257 H (74-99) mg/dL POC Glucose (mg/dL) 112 H (75-99) mg/dL Iron (50-170) ug/dL % Saturation (12.00-45.00) 10/19/21 Range/Units 11:16 RBC (3.80-5.40) m/uL Hgb (11.4-16.0) gm/dL Hct (34.0-46.0) % MCHC (31.0-37.0) g/dL RDW (11.5-15.5) % Lymphocytes # (1.0-4.8) k/uL Sodium (137-145) mmol/L BUN (7-17) mg/dL Creatinine (0.52-1.04) mg/dL Glucose (74-99) mg/dL POC Glucose (mg/dL) 256 H (75-99) mg/dL Iron (50-170) ug/dL % Saturation (12.00-45.00)
[2021-10-19 16:34] LABS: Glucose,Whole Blood 126 mg/dL (75-99)
[2021-10-19 21:00] LABS: Glucose,Whole Blood 219 mg/dL (75-99)
[2021-10-19] MEDS ORDERED: FERROUS SULFATE 325 MG TAB PO SCH (22:08)
--- NOTE | 2021-10-19 22:51 | P.PN ---
Subjective Progress Note Date: 10/19/21 This is a pleasant 81-year-old female who presented to the emergency department for generalized weakness along with fatigue and lightheadedness with some slight shortness of breath with exertion that had been progressively getting worse over the last few days. Patient did have a hemoglobin originally of 5.4 and was transfused 2 units and felt somewhat better although continued to feel generalized weakness. Patient denies any active bleeding and reports that she sees Dr. Wood hematology in the outpatient setting for anemia and is on 325 mg of iron tablets daily for low iron and noticed that she has continued dark stools. Patient has a past medical history of CHF, iron deficiency anemia, diab etes mellitus, gastroesophageal reflux disease, hyperlipidemia, hypertension, and chronic kidney disease. Patient had a recent change in primary care provider as her provider left and is scheduled to see Dr. Bruce in the outpatient setting. Patient also sees Dr. Dinero with nephrology for her chronic kidney disease. Chest x-ray on admission shows no acute process. EKG showed atrial fibrillation. General surgery was consulted for the possible GI bleed and underwent EGD showing hill grade 2 lower esophageal valve and the squamous column in her junction demonstrated LA grade a erosive esophagitis with no biopsies obtained. Occult Blood was positive and patient will be prepped and scheduled for colonoscopy on Monday with Dr. Pike. Cardiology also consulted for CHF and per cardiology had recent workup including stress test and echo in the office earlier this year. The echo revealed an EF of 55-60% with mild to moderate mitral regurgitation and mild tricuspid regurgitation present. Patient underwent Lexiscan stress test in June which was negative for ischemia per cardiology note. Cardiology will follow and patient resumed on appropriate home medications. 10/19/2021 Patient is seen in follow up and is being followed by general surgery for symptomatic anemia and bowel prep will be started today. Patient with history of [place] and will give a dose of IV Iron. Hemoglobin is stable at 9.8 today with no active bleeding noted. Patient is tentatively scheduled for colonoscopy in the am with Dr. Gonzalez. Patient was seen by cardiology for CHF exacerbation and continued on current daily dose of lasix. Patient reports feeling better since transfusion. Patient denies chest pain or palpitations. Patient denies shortness of breath and is afebrile. Review Of Systems: Constitutional: No fever, no chills, no night sweats. No weight change. Lungs: no Reports of shortness of breath with exertion, no cough, no sputum production. No wheezing. Cardiovascular: No chest pain, no lower extremity edema. No palpitations. No paroxysmal nocturnal dyspnea. No orthopnea. No lightheadedness or dizziness. No syncopal episodes. Abdominal: No abdominal pain. No nausea, vomiting. No diarrhea. No constipation. No bloody or tarry stools.. No loss of appetite. Genitourinary: No dysuria, increased frequency, urgency. No urinary retention. Musculoskeletal: No myalgias. No muscle weakness, no gait dysfunction, no frequent falls. No back pain. No neck pain. Active Medications Acetaminophen (Acetaminophen Tab 325 Mg Tab) 650 mg PO Q6HR PRN PRN Reason: Mild Pain or Fever > 100.5 Atorvastatin Calcium (Atorvastatin 40 Mg Tab) 40 mg PO DAILY [facility] Last Admin: 10/19/21 10:09 Dose: 40 mg Documented by: Ferrous Sulfate (Ferrous Sulfate 325 Mg Tab) 325 mg PO BID [facility] Furosemide (Furosemide 20 Mg Tab) 20 mg PO DAILY [facility] Last Admin: 10/19/21 10:09 Dose: 20 mg Documented by: Insulin Aspart (Insulin Aspart (Novolog) 100 Unit/Ml Vial) 0 unit SQ ACHS [facility]; Protocol Last Admin: 10/19/21 21:55 Dose: 3 unit Documented by: Naloxone HCl (Naloxone 0.4 Mg/Ml 1 Ml Vial) 0.2 mg IV Q2M PRN PRN Reason: Opioid Reversal Ondansetron HCl (Ondansetron 4 Mg/2 Ml Vial) 4 mg IVP Q8HR PRN PRN Reason: Nausea And Vomiting Pantoprazole Sodium (Pantoprazole 40 Mg/10 Ml Vial) 40 mg IV DAILY [facility] Last Admin: 10/19/21 10:11 Dose: 40 mg Documented by: Physical exam: Gen: This is a 81-year-old female awake, alert and oriented 3, well-developed, well-nourished. Pale HEENT: Head is atraumatic, normocephalic. Pupils equal, round. Sclerae is anicteric. NECK: Supple. No JVD. No lymphadenopathy. No thyromegaly. LUNGS: Clear to auscultation. No wheezes or rhonchi. No intercostal retractions. HEART: Regular rate and rhythm. No murmur. ABDOMEN: Soft. Bowel sounds are present. No masses. No tenderness. EXTREMITIES: No pedal edema. No calf tenderness. NEUROLOGICAL: Patient is awake, alert and oriented x3. Cranial nerves 2 through 12 are grossly intact. Assessment: Anemia, most likely iron deficiency anemia, follows with Dr. Wood in the outpatient setting and takes iron supplements Patient is status post EGD showing no evidence of bleed and esophagitis Positive occult blood secondary to above Generalized weakness most likely secondary to anemia Acute on chronic congestive heart failure with preserved EF, June 2021 echo showed an EF of 55-60% Diabetes mellitus Gastroesophageal reflux disease Hyperlipidemia hypertension History of iron deficiency anemia, sees Dr. Wood in the outpatient setting Chronic kidney disease GI prophylaxis DVT prophylaxis Full code Plan: Patient was seen and evaluated by general surgery and underwent EGD showing mild esophagitis with no biopsies obtained and plans on doing lower endoscopy colonoscopy tomorrow and will be prepped today and clear liquids until midnight. Patient was evaluated by cardiology for CHF and home medications have been resumed and patient will continue on low-dose Lasix and will follow-up with repeat labs. Patient reports to seeing Dr. Wood in the outpatient setting for iron deficiency anemia and iron studies were low will give a dose of IV iron. Hemoglobin is stable at 9.8 with no active bleeding noted at this time. Patient denies any further shortness of breath. Will follow-up with repeat labs and monitor hemoglobin closely. The impression and plan of care has been dictated by Sunitha Leone, Nurse Practitioner as directed. Dr. Sivakumar MD I have performed a history and examination and MDM of this patient, discussed the same with the dictator, and agree with the dictator's assessment and plan as written ,documented as a scribe. Based on total visit time, I have performed more than 50% of the visit. Objective - Vital Signs Vital signs: Vital Signs Temp 98.9 F 10/19/21 02:00 Pulse 78 10/19/21 02:00 Resp 14 10/19/21 02:00 BP 123/67 10/19/21 02:00 Pulse Ox 92 L 10/19/21 02:00 Intake & Output 10/18/21 10/19/21 10/19/21 18:59 06:59 18:59 Intake Total 100 250 Balance 100 250 Intake: IV 100 Oral 250 Other: Voiding Method Toilet # Voids 1 3 - Labs CBC & Chem 7: 10/19/21 09:25 10/19/21 09:25 Labs: Abnormal Lab Results - Last 24 Hours (Table) 10/18/21 10/18/21 10/18/21 Range/Units 06:48 06:48 11:17 RBC 2.87 L (4.10-5.20) X 10*6/uL Hgb 8.0 L (12.0-15.0) g/dL Hct 26.2 L (37.2-46.3) % MCHC 30.5 L (32.0-37.0) g/dL RDW 19.1 H (11.5-14.5) % BUN 31.4 H (9.0-27.0) mg/dL Est GFR (CKD-EPI)AfAm 38.0 L (60.0-200.0) Est GFR (CKD-EPI)NonAf 32.8 L (60.0-200.0) BUN/Creatinine Ratio 20.93 H (12.00-20.00) Ratio Glucose 57 L (70-110) mg/dL POC Glucose (mg/dL) 126 H (75-99) mg/dL Iron (50-170) ug/dL % Saturation (12.00-45.00) 10/18/21 10/18/21 10/19/21 Range/Units 13:46 16:24 02:43 RBC (4.10-5.20) X 10*6/uL Hgb (12.0-15.0) g/dL Hct (37.2-46.3) % MCHC (32.0-37.0) g/dL RDW (11.5-14.5) % BUN (9.0-27.0) mg/dL Est GFR (CKD-EPI)AfAm (60.0-200.0) Est GFR (CKD-EPI)NonAf (60.0-200.0) BUN/Creatinine Ratio (12.00-20.00) Ratio Glucose (70-110) mg/dL POC Glucose (mg/dL) 251 H 123 H (75-99) mg/dL Iron 28 L (50-170) ug/dL % Saturation 8.55 L (12.00-45.00) 10/19/21 Range/Units 07:01 RBC (4.10-5.20) X 10*6/uL Hgb (12.0-15.0) g/dL Hct (37.2-46.3) % MCHC (32.0-37.0) g/dL RDW (11.5-14.5) % BUN (9.0-27.0) mg/dL Est GFR (CKD-EPI)AfAm (60.0-200.0) Est GFR (CKD-EPI)NonAf (60.0-200.0) BUN/Creatinine Ratio (12.00-20.00) Ratio Glucose (70-110) mg/dL POC Glucose (mg/dL) 112 H (75-99) mg/dL Iron (50-170) ug/dL % Saturation (12.00-45.00)
[2021-10-20 02:45] LABS: Glucose,Whole Blood 107 mg/dL (75-99)
[2021-10-20 05:01] LABS: African American GFR (CKD) 33 (>60 ml/min/1.73 sqM); Anion Gap 5 mmol/L; Blood Urea Nitrogen 32 mg/dL (7-17); Calcium 8.2 mg/dL (8.4-10.2); Carbon Dioxide 26 mmol/L (22-30); Chloride 100 mmol/L (98-107); Glucose 104 mg/dL (74-99); Non-African American GFR(CKD) 28 (>60 ml/min/1.73 sqM); Potassium 3.7 mmol/L (3.5-5.1); Sodium 131 mmol/L (137-145)
[2021-10-20 05:16] LABS: Anisocytosis Slight; Basophils % (A) 0 %; Eosinophils # (A) 0.1 k/uL (0-0.7); Eosinophils % (A) 2 %; HCT 26.1 % (34.0-46.0); Hypochromasia Moderate; Lymphocytes # (A) 0.9 k/uL (1.0-4.8); Lymphocytes % (A) 12 %; MCH 27.8 pg (25.0-35.0); MCV 89.8 fL (80.0-100.0); Mean Platelet Volume 7.8; Monocytes # (A) 0.5 k/uL (0-1.0); Monocytes % (A) 7 %; Neutrophils # (A) 5.7 k/uL (1.3-7.7); Neutrophils % (A) 76 %; Platelet Count 214 k/uL (150-450); Poikilocytosis Slight; RBC 2.91 m/uL (3.80-5.40); RDW 18.6 % (11.5-15.5); WBC 7.5 k/uL (3.8-10.6)
[2021-10-20 05:34] LABS: HGB 8.1 gm/dL (11.4-16.0)
[2021-10-20 07:00] LABS: Glucose,Whole Blood 131 mg/dL (75-99)
[2021-10-20] MEDS: INSULIN ASPART (NovoLOG) 100 UNIT/ML VIAL SQ SCH ×4 (07:07→20:45)
[2021-10-20] MEDS: PANTOPRAZOLE 40 MG/10 ML VIAL IV SCH (07:48)
[2021-10-20] MEDS: ATORVASTATIN 40 MG TAB PO SCH (07:48)
[2021-10-20] MEDS: FUROSEMIDE 20 MG TAB PO SCH (07:48)
[2021-10-20] MEDS ORDERED: PROPOFOL 10 MG/ML 20 ML VIAL IV ONE (11:07)
[2021-10-20] MEDS ORDERED: IV FLUID CONTINUATION 300 ML IV ONE (11:09)
--- NOTE | 2021-10-20 11:42 | P.PCN ---
Date of Procedure: 10/20/21 Description of Procedure: PREOPERATIVE DIAGNOSIS: Acute blood loss anemia status post transfusion Positive occult stool POSTOPERATIVE DIAGNOSIS: Acute blood loss anemia status post transfusion Positive occult stool Gastrointestinal bleeding with melena Severe sigmoid diverticulosis OPERATION: Colonoscopy to the cecum, ileocecal valve SURGEON: Adriana Nicole MD. ANESTHESIA: MAC. INDICATIONS: The patient is a 81-year-old female who presents with acute blood loss anemia and positive occult stool. Benefits and risks were described and informed consent was obtained. DESCRIPTION OF PROCEDURE: The patient had undergone attempted Golytely prep 2 L. The patient had been brought into the operating room and laid in the left lateral decubitus position. After adequate intravenous sedation, the rectum was examined with 2% lidocaine jelly. The rectal tone was tight. An Olympus colonoscope was gently advanced to the sigmoid colon however due to severe sigmoid diverticulosis with stricture, pediatric scope was used instead. After exchanging the scope, the scope was advanced to the cecum. The prep was fair. Dark liquid stools was found consistent with transient gastrointestinal bleeding of the small bowel. Severe sigmoid diverticulosis with stricture was found. No active colonic blee ding was found. No intraluminal masses were identified within the colon. No colonic polyps were found. No evidence of focal colitis was found. Retroflexion of the scope demonstrated grade 2 internal hemorrhoids with recent inflammation. The colon was desufflated. The patient had tolerated the procedure well. Withdrawal time was over 6 minutes. FINDINGS: Aronchick preparation quality scale 2+ (1-5) Internal hemorrhoids, grade 4 with ulceration and recent inflammation and bleeding No thrombosed hemorrhoid identified. No arteriovenous malformations. No adenomatous polyps. Dark liquid stools was found consistent with transient gastrointestinal bleeding of the small bowel. Severe sigmoid diverticulosis with stricture was found. Pediatric colonoscope used to perform prep. No focal colitis. RECOMMENDATIONS: 1. Heart healthy diet 2. May benefit from tag RBC scan or small bowel endoscopy for GI bleed 3. Recommend avoid anticoagulant Plan - Discharge Summary Discharge Rx Participant: Yes New Discharge Prescriptions: No Action Multivitamins, Thera [Multivitamin (formulary)] 1 tab PO DAILY Pioglitazone [Actos] 45 mg PO DAILY Furosemide [Lasix] 20 mg PO DAILY Simvastatin [Zocor] 80 mg PO DAILY Pantoprazole Sodium [Protonix] 40 mg PO DAILY glipiZIDE XL [Glucotrol Xl] 10 mg PO DAILY Acarbose [Precose] 25 mg PO AC-LUNCH Ferrous Sulfate [Iron] 325 mg PO DAILY Aspirin 325 mg PO BID Tolterodine ER [Detrol LA] 2 mg PO DAILY Cetirizine HCl [Zyrtec] 10 mg PO DAILY PRN PRN Reason: Allergy Symptoms allopurinoL [Zyloprim] 100 mg PO HS Acarbose [Precose] 50 mg PO AC-SUPPER Calcium Carbonate [Calcium] 600 mg PO DAILY Discharge Medication List Furosemide [Lasix] 20 mg PO DAILY 10/16/17 [History] Multivitamins, Thera [Multivitamin (formulary)] 1 tab PO DAILY 10/16/17 [History] Pantoprazole Sodium [Protonix] 40 mg PO DAILY 10/16/17 [History] Pioglitazone [Actos] 45 mg PO DAILY 10/16/17 [History] Simvastatin [Zocor] 80 mg PO DAILY 10/16/17 [History] Acarbose [Precose] 25 mg PO AC-LUNCH 12/18/18 [History] glipiZIDE XL [Glucotrol Xl] 10 mg PO DAILY 12/18/18 [History] Acarbose [Precose] 50 mg PO AC-SUPPER 10/15/21 [History] Aspirin 325 mg PO BID 10/15/21 [History] Calcium Carbonate [Calcium] 600 mg PO DAILY 10/15/21 [History] Cetirizine HCl [Zyrtec] 10 mg PO DAILY PRN 10/15/21 [History] Ferrous Sulfate [Iron] 325 mg PO DAILY 10/15/21 [History] allopurinoL [Zyloprim] 100 mg PO HS 10/15/21 [History] Tolterodine ER [Detrol LA] 2 mg PO DAILY 10/17/21 [History] Follow up Appointment(s)/Referral(s): Brett Bruce [Primary Care Provider] - 1-2 days Activity/Diet/Wound Care/Special Instructions: we recommend to check your glucose 4 times a day before each meal and at bed time , keep the results in a log book and bring it to your doctor upon your appointment date if your glucose is less than 70 or more than 400 then call 911 and come to emergency room heart healthy diet activity is restricted till you see your doctor
[2021-10-20 11:49] LABS: Glucose,Whole Blood 165 mg/dL (75-99)
[2021-10-20 16:50] LABS: Glucose,Whole Blood 206 mg/dL (75-99)
[2021-10-20] MEDS ORDERED: SODIUM CHLORIDE 0.9% 1,000 ML IV SCH (18:00)
--- NOTE | 2021-10-20 18:01 | P.PN ---
Subjective This is a pleasant 81-year-old female who presented to the emergency department for generalized weakness along with fatigue and lightheadedness with some slight shortness of breath with exertion that had been progressively getting worse over the last few days. Patient did have a hemoglobin originally of 5.4 and was transfused 2 units and felt somewhat better although continued to feel generalized weakness. Patient denies any active bleeding and reports that she sees Dr. Wood hematology in the outpatient setting for anemia and is on 325 mg of iron tablets daily for low iron and noticed that she has continued dark stools. Patient has a past medical history of CHF, iron deficiency anemia, diabetes mellitus, gastroesophageal reflux disease, hyperlipidemia, hypertension, and chronic kidney disease. Patient had a recent change in [facility] care provider as her provider left and is scheduled to see Dr. Bruce in the outpatient setting. Patient also sees Dr. Dinero with nephrology for her chronic kidney disease. Chest x-ray on admission shows no acute process. EKG showed atrial fibrillation. General surgery was consulted for the possible GI bleed and underwent EGD showing hill grade 2 lower esophageal valve and the squamous column in her junction demonstrated LA grade a erosive esophagitis with no biopsies obtained. Occult Blood was positive and patient will be prepped and scheduled for colonoscopy on Monday with Dr. Pike. Cardiology also consulted for CHF and per cardiology had recent workup including stress test and echo in the office earlier this year. The echo revealed an EF of 55-60% with mild to moderate mitral regurgitation and mild tricuspid regurgitation present. Patient underwent Lexiscan stress test in June which was negative for ischemia per cardiology note. Cardiology will follow and patient resumed on appropriate home medications. 10/19/2021 Patient is seen in follow up and is being followed by general surgery for symptomatic anemia and bowel prep will be started today. Patient with history of [place] and will give a dose of IV Iron. Hemoglobin is stable at 9.8 today with no active bleeding noted. Patient is tentatively scheduled for colonoscopy in the am with Dr. Gonzalez. Patient was seen by cardiology for CHF exacerbation and continued on current daily dose of lasix. Patient reports feeling better since transfusion. Patient denies chest pain or palpitations. Patient denies shortness of breath and is afebrile. 10/20/2021 Patient this morning was found walking in the room with no difficulty, daughter was at bedside. Patient denies further weakness or dizziness or chest pain or abdominal pain or any other symptoms. A pressure is borderline. Hemoglobin went down a little bit to 8.1 while creatinine up to 1.7 She's not on anticoagulation or antiplatelet therapy. She is on a Protonix IV 40 mg twice daily. Ferrous sulfate is added today. She underwent colonoscopy today by surgery team showing transient dark liquid coming from the small intestine suspicious for transient small intestinal bleed as per surgery team input. There is no active colonic bleeding. Patient and daughter informed about the results of EGD which was erosive esophagitis. Patient is asymptomatic regarding this currently. Surgery team recommending RBC scan or small bowel endoscopy. Repeat hemoglobin and creatinine tomorrow Saw the patient and gentle hydration for 12 hours Objective - Vital Signs Vital signs: Vital Signs Temp 98.2 F 10/20/21 08:00 Pulse 105 H 10/20/21 08:00 Resp 18 10/20/21 08:00 BP 146/68 10/20/21 08:00 Pulse Ox 96 10/20/21 08:00 Intake & Output 10/19/21 10/20/21 10/20/21 18:59 06:59 18:59 Other: Voiding Method Toilet Toilet # Voids 3 3 # Bowel Movements 4 - Exam GENERAL: The patient is alert and oriented x3, not in any acute distress. Well developed, well nourished. HEENT: Pupils are round and equally reacting to light. EOMI. No scleral icterus. No conjunctival pallor. Normocephalic, atraumatic. No pharyngeal erythema. No thyromegaly. CARDIOVASCULAR: S1 and S2 present. No murmurs, rubs, or gallops. PULMONARY: Chest is clear to auscultation, no wheezing or crackles. ABDOMEN: Soft, nontender, nondistended, normoactive bowel sounds. No palpable organomegaly. MUSCULOSKELETAL: No joint swelling or deformity. EXTREMITIES: No cyanosis, clubbing, or pedal edema. NEUROLOGICAL: Gross neurological examination did not reveal any focal deficits. SKIN: No rashes. no petechiae. - Labs CBC & Chem 7: 10/20/21 04:16 10/20/21 04:16 Labs: Abnormal Lab Results - Last 24 Hours (Table) 10/19/21 10/19/21 10/19/21 Range/Units 11:16 16:32 20:57 RBC (3.80-5.40) m/uL Hgb (11.4-16.0) gm/dL Hct (34.0-46.0) % RDW (11.5-15.5) % Lymphocytes # (1.0-4.8) k/uL Sodium (137-145) mmol/L BUN (7-17) mg/dL Creatinine (0.52-1.04) mg/dL Glucose (74-99) mg/dL POC Glucose (mg/dL) 256 H 126 H 219 H (75-99) mg/dL Calcium (8.4-10.2) mg/dL 10/20/21 10/20/21 10/20/21 Range/Units 02:32 04:16 04:16 RBC 2.91 L (3.80-5.40) m/uL Hgb 8.1 L D (11.4-16.0) gm/dL Hct 26.1 L (34.0-46.0) % RDW 18.6 H (11.5-15.5) % Lymphocytes # 0.9 L (1.0-4.8) k/uL Sodium 131 L (137-145) mmol/L BUN 32 H (7-17) mg/dL Creatinine 1.70 H (0.52-1.04) mg/dL Glucose 104 H (74-99) mg/dL POC Glucose (mg/dL) 107 H (75-99) mg/dL Calcium 8.2 L (8.4-10.2) mg/dL 10/20/21 Range/Units 06:59 RBC (3.80-5.40) m/uL Hgb (11.4-16.0) gm/dL Hct (34.0-46.0) % RDW (11.5-15.5) % Lymphocytes # (1.0-4.8) k/uL Sodium (137-145) mmol/L BUN (7-17) mg/dL Creatinine (0.52-1.04) mg/dL Glucose (74-99) mg/dL POC Glucose (mg/dL) 131 H (75-99) mg/dL Calcium (8.4-10.2) mg/dL Assessment and Plan Assessment: Iron deficiency anemia, secondary to erosive esophagitis and suspected small intestinal bleed which is transient for surgery team. Erosive esophagitis Generalized weakness most likely secondary to anemia. Significantly improved Acute on chronic congestive heart failure with preserved EF, June 2021 echo showed an EF of 55-60% Diabetes mellitus Gastroesophageal reflux disease Hyperlipidemia hypertension History of iron deficiency anemia, sees Dr. Wood in the outpatient setting Chronic kidney disease Plan: This is a pleasant 81 years old female who presents with possible gi bleed to erosive esophagitis Continue with Protonix twice a day Monitor hemoglobin and creatinine Continue with ferrous sulfate. Surgery team on the case recommended RBC scan or small intestinal endoscopy Labs and medication were reviewed.. Continue same treatment. Continue with symptomatic treatment. Resume home medication. Monitor lytes and vitals. DVT and GI prophylaxis. Further recommendations as per clinical course of the patient DVT prophylaxis: no Subcutaneous heparin, continue with mechanical. Patient is mobile GI Prophylaxis: Ppi
[2021-10-20 20:32] LABS: Glucose,Whole Blood 191 mg/dL (75-99)
[2021-10-20] MEDS: FERROUS SULFATE 325 MG TAB PO SCH (20:45)
[2021-10-21 02:48] LABS: Glucose,Whole Blood 139 mg/dL (75-99)
[2021-10-21 04:09] VITALS: RESP 17
[2021-10-21 06:54] LABS: Glucose,Whole Blood 139 mg/dL (75-99)
[2021-10-21] MEDS: FERROUS SULFATE 325 MG TAB PO SCH (07:49)
[2021-10-21] MEDS: ATORVASTATIN 40 MG TAB PO SCH (07:49)
[2021-10-21] MEDS: INSULIN ASPART (NovoLOG) 100 UNIT/ML VIAL SQ SCH (07:50)
[2021-10-21 08:22] VITALS: BP 119/70; PULSE 84; TEMP 98.7
[2021-10-21] MEDS: PANTOPRAZOLE 40 MG/10 ML VIAL IV SCH (08:23)
[2021-10-21] MEDS ORDERED: LACTATED RINGERS 1,000 ML IV SCH (08:31)
[2021-10-21 09:50] LABS: Anisocytosis Slight; HCT 30.2 % (34.0-46.0); HGB 9.1 gm/dL (11.4-16.0); Hypochromasia Marked; MCH 27.5 pg (25.0-35.0); MCHC 30.2 g/dL (31.0-37.0); MCV 90.9 fL (80.0-100.0); Mean Platelet Volume 8.3; Platelet Count 225 k/uL (150-450); Poikilocytosis Slight; RBC 3.32 m/uL (3.80-5.40); RDW 18.1 % (11.5-15.5); WBC 6.2 k/uL (3.8-10.6)
--- NOTE | 2021-10-23 08:58 | P.DS ---
Providers Date of admission: 10/19/21 14:44 Attending physician: Hien Haney Consults: 10/17/21 19:59 Consult Physician Stat Consulting Provider: Adriana Nicole Consult Reason/Comments: Gastrointestinal bleeding Do you want consulting provider notified?: Already Contacted Primary care physician: Brett [facility] Course: Diagnoses: Iron deficiency anemia, secondary to erosive esophagitis and suspected small intestinal bleed which is transient for surgery team. Erosive esophagitis Generalized weakness most likely secondary to anemia. Significantly improved Acute on chronic congestive heart failure with preserved EF, June 2021 echo showed an EF of 55-60% Diabetes mellitus Gastroesophageal reflux disease Hyperlipidemia hypertension History of iron deficiency anemia, sees Dr. Wood in the outpatient setting Chronic kidney disease Hospital course: This is a pleasant 81-year-old female who presented to the emergency department for generalized weakness along with fatigue and lightheadedness with some slight shortness of breath with exertion that had been progressively getting worse over the last few days. Patient did have a hemoglobin originally of 5.4 and was transfused 2 units and felt somewhat better although continued to feel generalized weakness. Patient denies any active bleeding and reports that she sees Dr. Wood hematology in the outpatient setting for anemia and is on 325 mg of iron tablets daily for low iron and noticed that she has continued dark stools. Patient has been evaluated by general surgery team and she underwent EGD showing erosive esophagitis while colonoscopy showed (Dark liquid stools was found consistent with transient gastrointestinal bleeding of the small bowel. Severe sigmoid diverticulosis with stricture was found. No active colonic bleeding was found. No intraluminal masses were identified within the colon. No colonic polyps were found. No evidence of focal colitis was found. Retroflexion of the scope demonstrated grade 2 internal hemorrhoids with recent inflammation.) As per report. Surgery team then recommended RBC scan or small bowel endoscopy for GI bleed. Patient remains asymptomatic on discharge. She was fully awake and oriented. Walking in the room freely and by herself. She denies abdominal pain or vomiting or diarrhea. No more bleeding or dark stool. No chest pain or dyspnea. No dizziness. No change in urine habits. No fever. Patient was cleared for discharge by surgery team. Problems and management plan were discussed with the patient and he verbalized understanding and acceptance Patient was found stable and can be discharged home in good prognosis however he needs follow-up as an outpatient. Patient was instructed to follow up with PCP Dr. bruce within one week and patient agrees Patient was instructed to follow up with the surgery team Dr. Nicole on 524 and patient agrees Physical exam Gen: patient is a AAOx3, no distress CVS: S1-S2, RRR, no murmur Lungs: B/L CTA, no wheezing Abdomen: soft, no distention, no tenderness, positive bowel sounds Extremity: no leg edema or induration Time spent more than 35 minutes Patient Condition at Discharge: Fair Plan - Discharge Summary Discharge Rx Participant: Yes New Discharge Prescriptions: New Ferrous Sulfate [Iron (65 MG Elemental)] 325 mg PO BID #60 tab Acetaminophen Tab [Tylenol] 650 mg PO Q6HR PRN tab PRN Reason: Mild Pain Or Fever > 100.5 Continue Multivitamins, Thera [Multivitamin (formulary)] 1 tab PO DAILY Simvastatin [Zocor] 80 mg PO DAILY Tolterodine ER [Detrol LA] 2 mg PO DAILY allopurinoL [Zyloprim] 100 mg PO HS Acarbose [Precose] 50 mg PO AC-SUPPER Calcium Carbonate [Calcium] 600 mg PO DAILY Changed Pantoprazole Sodium [Protonix] 40 mg PO BID 42 Days #21 tab Discontinued Pioglitazone [Actos] 45 mg PO DAILY Furosemide [Lasix] 20 mg PO DAILY glipiZIDE XL [Glucotrol Xl] 10 mg PO DAILY Acarbose [Precose] 25 mg PO AC-LUNCH Ferrous Sulfate [Iron] 325 mg PO DAILY Aspirin 325 mg PO BID Cetirizine HCl [Zyrtec] 10 mg PO DAILY PRN PRN Reason: Allergy Symptoms Discharge Medication List Multivitamins, Thera [Multivitamin (formulary)] 1 tab PO DAILY 10/16/17 [History] Simvastatin [Zocor] 80 mg PO DAILY 10/16/17 [History] Acarbose [Precose] 50 mg PO AC-SUPPER 10/15/21 [History] Calcium Carbonate [Calcium] 600 mg PO DAILY 10/15/21 [History] allopurinoL [Zyloprim] 100 mg PO HS 10/15/21 [History] Tolterodine ER [Detrol LA] 2 mg PO DAILY 10/17/21 [History] Acetaminophen Tab [Tylenol] 650 mg PO Q6HR PRN tab 10/21/21 [Rx] Ferrous Sulfate [Iron (65 MG Elemental)] 325 mg PO BID #60 tab 10/21/21 [Rx] Pantoprazole Sodium [Protonix] 40 mg PO BID 42 Days #21 tab 10/21/21 [Rx] Follow up Appointment(s)/Referral(s): Adriana Nicole MD [STAFF PHYSICIAN] - 11/09/21 11:45 am (Might benefit from tag RBC scan or small bowel endoscopy for GI bleed) Brett Bruce [Primary Care Provider] - 1-2 days (Follow-up with your appointment on 10/25 Please call to confirm appointment date and time) Patient Instructions/Handouts: Iron Supplements (By mouth), Pantoprazole (By mouth), Gastrointestinal Bleeding (DC), Diverticulosis (DC) Activity/Diet/Wound Care/Special Instructions: we recommend to check your glucose 4 times a day before each meal and at bed time , keep the results in a log book and bring it to your doctor upon your appointment date if your glucose is less than 70 or more than 400 then call 911 and come to emergency room heart healthy diet activity is restricted till you see your doctor we recommend avoiding any NSAIDs , please avoid aspirin, Mobic, ibuprofen, Motrin, Naprosyn or Voltaren or similar medication. We recommend tag RBC scan or small bowel endoscopy for GI bleed, please follow-up with Dr. Pike for this purpose Discharge Disposition: HOME SELF-CARE
== END 2021-10-21 12:43 | disposition home or self-care (01) ==
LOC: EC 15:16 → 4SSUR 20:40 → OBSVTOIN 10-19 14:44 → INTOOBSV 10-19 14:44 → UNDODISIN 10-21 12:43
PROVIDERS: ADMIT Internal Medicine; ATTEND Internal Medicine
PROC: 0DJ08ZZ Inspection of Upper Intestinal Tract, Via Natural or Artificial Opening Endoscopic (ICD-10-PCS; principal; 2021-10-18 08:20)
PROC: 0DJD8ZZ Inspection of Lower Intestinal Tract, Via Natural or Artificial Opening Endoscopic (ICD-10-PCS; 2021-10-20)
DX: K22.11 Ulcer of esophagus with bleeding (principal); D62 Acute posthemorrhagic anemia; I50.33 Acute on chronic diastolic (congestive) heart failure; I13.0 Hypertensive heart and chronic kidney disease with heart failure and stage 1 through stage 4 chronic kidney disease, or unspecified chronic kidney disease; K64.1 Second degree hemorrhoids; D50.9 Iron deficiency anemia, unspecified; N18.9 Chronic kidney disease, unspecified; E11.22 Type 2 diabetes mellitus with diabetic chronic kidney disease; E78.5 Hyperlipidemia, unspecified; I08.1 Rheumatic disorders of both mitral and tricuspid valves; K57.30 Diverticulosis of large intestine without perforation or abscess without bleeding; I48.91 Unspecified atrial fibrillation; K21.00 Gastro-esophageal reflux disease with esophagitis, without bleeding; K44.9 Diaphragmatic hernia without obstruction or gangrene; K56.699 Other intestinal obstruction unspecified as to partial versus complete obstruction; Z20.822 Contact with and (suspected) exposure to COVID-19; Z79.82 Long term (current) use of aspirin; Z79.84 Long term (current) use of oral hypoglycemic drugs; Z79.899 Other long term (current) drug therapy; Z88.2 Allergy status to sulfonamides; Z90.49 Acquired absence of other specified parts of digestive tract; Z98.891 History of uterine scar from previous surgery; Z87.891 Personal history of nicotine dependence; Z90.710 Acquired absence of both cervix and uterus; Z98.890 Other specified postprocedural states
CPT/HCPCS: 96376; 96375 ×2; 96374; 99285; 36415; 93005; 97161; 97165; 83880; 80053; 80048 ×3; 82607; 82728; 82746; 83540; 83550; 83735; 84100; 84484 ×2; 85025 ×4; 85027; 85610; 85730; 82272; 81003; 87635; 71045; 45378; 43235; G0378 ×5; J1940; J2916; J2704 ×2; C9113 ×5; J2001

== ENCOUNTER 2022-01-18 17:39 | Observation (INO) | payer MEDICARE ==
--- NOTE | 2022-01-18 17:47 | ED ---
Neuro HPI - General Stated Complaint: possible TIA Time Seen by Provider: 01/18/22 17:40 - History of Present Illness Is the patient presenting with stroke symptoms?: Yes Initial Comments: 81-year-old female past medical history of diabetes, heart failure presents emergency department for slurred speech. At 1620 she was on the phone with a family member when they noted that she was having slurred speech and expressive aphasia. The symptoms resolved at 1720. She denies having any numbness, tingling or weakness in her extremity. No history of stroke. 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 She denies any visual changes. Does admit to a headache right now. No fevers. No head trauma. No other alleviating, precipitating or modifying factors. - Related Data Home Medications: Home Medications Medication Instructions Recorded Confirmed Multivitamins, Thera [Multivitamin 1 tab PO DAILY 10/16/17 01/18/22 (formulary)] Acarbose [Precose] 50 mg PO AC-SUPPER 10/15/21 01/18/22 Calcium Carbonate [Calcium] 600 mg PO DAILY 10/15/21 01/18/22 allopurinoL [Zyloprim] 100 mg PO DAILY 10/15/21 01/18/22 Tolterodine ER [Detrol LA] 2 mg PO DAILY 10/17/21 01/18/22 Ofloxacin 0.3% Ophth Soln [Ocuflox 4 drops RIGHT EYE QID 01/18/22 01/18/22 Ophth Soln] glipiZIDE 5 mg PO AC-BID 01/18/22 01/18/22 lisinopriL [Zestril] 10 mg PO DAILY 01/18/22 01/18/22 Previous Rx's Medication Instructions Recorded Acetaminophen Tab [Tylenol] 650 mg PO Q6HR PRN tab 10/21/21 Ferrous Sulfate [Iron (65 MG 325 mg PO BID #60 tab 10/21/21 Elemental)] Pantoprazole Sodium [Protonix] 40 mg PO BID 42 Days #21 tab 10/21/21 Aspirin 81 mg PO DAILY #30 tab 01/19/22 Atorvastatin [Lipitor] 40 mg PO DAILY #30 tab 01/19/22 Allergies/Adverse Reactions: Allergies Allergy/AdvReac Type Severity Reaction Status Date / Time fluorouracil Allergy Hallucinati Verified 01/18/22 20:06 ons Sulfa (Sulfonamide Allergy Rash/Hives Verified 01/18/22 20:06 Antibiotics) trimethoprim Allergy Unknown Verified 01/18/22 20:06 Review of Systems ROS Statement: Those systems with pertinent positive or pertinent negative responses have been documented in the HPI. ROS Other: All systems not noted in ROS Statement are negative. General Exam General appearance: alert, in no apparent distress Head exam: Present: atraumatic, normocephalic, normal inspection Eye exam: Present: normal appearance, PERRL, EOMI. Absent: scleral icterus, conjunctival injection, periorbital swelling ENT exam: Present: normal exam, mucous membranes moist Neck exam: Present: normal inspection. Absent: tenderness, meningismus, lymphadenopathy Respiratory exam: Present: normal lung sounds bilaterally. Absent: respiratory distress, wheezes, rales, rhonchi, stridor Cardiovascular Exam: Present: regular rate, normal rhythm, normal heart sounds. Absent: systolic murmur, diastolic murmur, rubs, gallop, clicks GI/Abdominal exam: Present: soft, normal bowel sounds. Absent: distended, tenderness, guarding, rebound, rigid Extremities exam: Present: normal inspection, full ROM, normal capillary refill. Absent: tenderness, pedal edema, joint swelling, calf tenderness Back exam: Present: normal inspection Neurological exam: Present: alert, oriented X3, CN II-XII intact Psychiatric exam: Present: normal affect, normal mood Skin exam: Present: warm, dry, intact, normal color. Absent: rash Stroke MDM - Lab Data Result diagrams: 01/19/22 04:33 01/19/22 04:33 Lab Results 01/18/22 01/18/22 01/18/22 Range/Units 18:30 18:33 18:33 WBC 7.1 (3.8-10.6) k/uL RBC 4.19 (3.80-5.40) m/uL Hgb 11.2 L (11.4-16.0) gm/dL Hct 35.8 (34.0-46.0) % MCV 85.5 (80.0-100.0) fL MCH 26.7 (25.0-35.0) pg MCHC 31.3 (31.0-37.0) g/dL RDW 16.6 H (11.5-15.5) % Plt Count 169 (150-450) k/uL MPV 8.4 Neutrophils % 77 % Lymphocytes % 13 % Monocytes % 7 % Eosinophils % 2 % Basophils % 1 % Neutrophils # 5.4 (1.3-7.7) k/uL Lymphocytes # 0.9 L (1.0-4.8) k/uL Monocytes # 0.5 (0-1.0) k/uL Eosinophils # 0.1 (0-0.7) k/uL Basophils # 0.0 (0-0.2) k/uL Hypochromasia Slight Anisocytosis Slight PT 10.1 (9.0-12.0) sec INR 0.9 (<1.2) APTT 23.9 (22.0-30.0) sec Sodium 135 L (137-145) mmol/L Potassium 4.6 (3.5-5.1) mmol/L Chloride 102 (98-107) mmol/L Carbon Dioxide 28 (22-30) mmol/L Anion Gap 5 mmol/L BUN 26 H (7-17) mg/dL Creatinine 1.32 H (0.52-1.04) mg/dL Est GFR (CKD-EPI)AfAm 44 (>60 ml/min/1.73 sqM) Est GFR (CKD-EPI)NonAf 39 (>60 ml/min/1.73 sqM) Glucose 228 H (74-99) mg/dL Calcium 9.7 (8.4-10.2) mg/dL Total Bilirubin 0.3 (0.2-1.3) mg/dL AST 23 (14-36) U/L ALT 14 (4-34) U/L Alkaline Phosphatase 74 (38-126) U/L Troponin I (0.000-0.034) ng/mL Total Protein 6.0 L (6.3-8.2) g/dL Albumin 3.7 (3.5-5.0) g/dL Urine Color Urine Appearance (Clear) Urine pH (5.0-8.0) Ur Specific [place] (1.001-1.035) Urine Protein (Negative) Urine Glucose (UA) (Negative) Urine Ketones (Negative) Urine Blood (Negative) Urine Nitrite (Negative) Urine Bilirubin (Negative) Urine Urobilinogen (<2.0) mg/dL Ur Leukocyte Esterase (Negative) Urine RBC (0-5) /hpf Urine WBC (0-5) /hpf Hyaline Casts (0-2) /lpf 01/18/22 01/18/22 Range/Units 18:33 20:30 WBC (3.8-10.6) k/uL RBC (3.80-5.40) m/uL Hgb (11.4-16.0) gm/dL Hct (34.0-46.0) % MCV (80.0-100.0) fL MCH (25.0-35.0) pg MCHC (31.0-37.0) g/dL RDW (11.5-15.5) % Plt Count (150-450) k/uL MPV Neutrophils % % Lymphocytes % % Monocytes % % Eosinophils % % Basophils % % Neutrophils # (1.3-7.7) k/uL Lymphocytes # (1.0-4.8) k/uL Monocytes # (0-1.0) k/uL Eosinophils # (0-0.7) k/uL Basophils # (0-0.2) k/uL Hypochromasia Anisocytosis PT (9.0-12.0) sec INR (<1.2) APTT (22.0-30.0) sec Sodium (137-145) mmol/L Potassium (3.5-5.1) mmol/L Chloride (98-107) mmol/L Carbon Dioxide (22-30) mmol/L Anion Gap mmol/L BUN (7-17) mg/dL Creatinine (0.52-1.04) mg/dL Est GFR (CKD-EPI)AfAm (>60 ml/min/1.73 sqM) Est GFR (CKD-EPI)NonAf (>60 ml/min/1.73 sqM) Glucose (74-99) mg/dL Calcium (8.4-10.2) mg/dL Total Bilirubin (0.2-1.3) mg/dL AST (14-36) U/L ALT (4-34) U/L Alkaline Phosphatase (38-126) U/L Troponin I <0.012 (0.000-0.034) ng/mL Total Protein (6.3-8.2) g/dL Albumin (3.5-5.0) g/dL Urine Color Yellow Urine Appearance Clear (Clear) Urine pH 6.5 (5.0-8.0) Ur Specific [place] 1.010 (1.001-1.035) Urine Protein Negative (Negative) Urine Glucose (UA) Negative (Negative) Urine Ketones Negative (Negative) Urine Blood Negative (Negative) Urine Nitrite Negative (Negative) Urine Bilirubin Negative (Negative) Urine Urobilinogen <2.0 (<2.0) mg/dL Ur Leukocyte Esterase Small H (Negative) Urine RBC 1 (0-5) /hpf Urine WBC 8 H (0-5) /hpf Hyaline Casts 20 H (0-2) /lpf - Medical Decision Making Upon arrival patient was placed into room 22. A thorough history and physical exam was performed. Patient has had complete resolution of her symptoms at this time. IV access is established and laboratory studies were conducted. CT of the brain is performed which demonstrates cerebral atrophy with no acute intracranial abnormality. Results are discussed with the patient and family at bedside. Recommended admission for neurology consultation which the patient did agree to. Spoke with Dr. Lamb who agreed to admit the patient. Patient taken to the floor in stable condition 01/18/22 18:19 EKG demonstrates sinus rhythm with a rate of 93. GA interval 104. QRS 81. QTC 388. Inverted T waves in lead 3. No acute ST segment elevations Past Medical History Past Medical History: Blood Disorder, Heart Failure, Diabetes Mellitus, GERD/Reflux, Hyperlipidemia, Hypertension, Renal Disease Additional Past Medical History / Comment(s): chronic kidney disease. iron deficiency anemia History of Any Multi-Drug Resistant Organisms: None Reported Past Surgical History: Breast Surgery, Section, Cholecystectomy Additional Past Surgical History / Comment(s): right breast lumpectomy. ovarian cyst removal. carotid bypass on the left. left wrist plate put in many years ago Past Anesthesia/Blood Transfusion Reactions: No Reported Reaction Past Psychological History: No Psychological Hx Reported Smoking Status: Former smoker Past Alcohol Use History: None Reported Past Drug Use History: None Reported - Past Family History Father Family Medical History: Hypertension Course Vital Signs 01/18/22 01/18/22 01/18/22 17:45 20:28 21:15 Temperature 98.6 F 97.9 F Pulse Rate 94 90 74 Respiratory 16 16 16 Rate Blood Pressure 176/75 178/77 188/80 O2 Sat by Pulse 98 95 97 Oximetry Disposition Clinical Impression: TIA (transient ischemic attack) Disposition: ADMITTED IP TO THIS HOSP Condition: Stable Is patient prescribed a controlled substance at d/c from ED?: No Decision to Admit Reason: Admit from EC Decision Date: 01/18/22 Decision Time: 20:41
[2022-01-18 18:50] LABS: Anisocytosis Slight; Basophils % (A) 1 %; Eosinophils # (A) 0.1 k/uL (0-0.7); Eosinophils % (A) 2 %; HCT 35.8 % (34.0-46.0); HGB 11.2 gm/dL (11.4-16.0); Hypochromasia Slight; Lymphocytes # (A) 0.9 k/uL (1.0-4.8); Lymphocytes % (A) 13 %; MCH 26.7 pg (25.0-35.0); MCHC 31.3 g/dL (31.0-37.0); MCV 85.5 fL (80.0-100.0); Mean Platelet Volume 8.4; Monocytes # (A) 0.5 k/uL (0-1.0); Monocytes % (A) 7 %; Neutrophils # (A) 5.4 k/uL (1.3-7.7); Neutrophils % (A) 77 %; Platelet Count 169 k/uL (150-450); RBC 4.19 m/uL (3.80-5.40); RDW 16.6 % (11.5-15.5); WBC 7.1 k/uL (3.8-10.6)
[2022-01-18 18:56] LABS: INR 0.9 (<1.2); Partial Thromboplastin Time 23.9 sec (22.0-30.0); Prothrombin Time 10.1 sec (9.0-12.0)
[2022-01-18 18:59] LABS: Albumin 3.7 g/dL (3.5-5.0); Calcium 9.7 mg/dL (8.4-10.2); Potassium 4.6 mmol/L (3.5-5.1); Total Bilirubin 0.3 mg/dL (0.2-1.3)
[2022-01-18] MEDS ORDERED: ACETAMINOPHEN TAB 325 MG TAB PO STA (19:32)
--- NOTE | 2022-01-18 20:03 | CT ---
EXAMINATION TYPE: CT brain wo con DATE OF EXAM: 01/18/2022 COMPARISON: 12/18/2018 HISTORY: Weakness CT DLP: 1092.4 mGycm Automated exposure control for dose reduction was used. Images obtained of the brain with no contrast. There is cerebral cortical atrophy. There is no mass effect or midline shift. No sign of intracranial hemorrhage. The calvarium is intact. There is normal aeration of the mastoid sinuses. Skull base is intact. IMPRESSION: Cerebral atrophy. No acute intracranial abnormality. No change compared to the old exam.
--- NOTE | 2022-01-18 20:16 | XR ---
EXAMINATION TYPE: XR chest 2V DATE OF EXAM: 01/18/2022 COMPARISON: 10/17/2021 HISTORY: Short of breath. Altered mental status TECHNIQUE: 2 views FINDINGS: There is no heart failure nor confluent pneumonic infiltrate. Costophrenic angles are clear . Thoracic aorta is atheromatous. No pleural effusion. The thoracic spine is intact. There is some os teopenia. IMPRESSION: No active cardiopulmonary disease. No change.
[2022-01-18] MEDS ORDERED: NALOXONE 0.4 MG/ML 1 ML VIAL IV PRN (20:41)
[2022-01-18 21:06] LABS: Appearance,Urine Clear (Clear); Bilirubin,Urine Negative (Negative); Blood,Urine Negative (Negative); Color,Urine Yellow; Glucose,Urine (UA) Negative (Negative); Hyaline Casts,Urine 20 /lpf (0-2); Ketones,Urine Negative (Negative); Leukocyte Esterase,Urine Small (Negative); Nitrite,Urine Negative (Negative); PH, Urine 6.5 (5.0-8.0); Protein,Urine Negative (Negative); RBC,Urine 1 /hpf (0-5); Urobilinogen,Urine <2.0 mg/dL (<2.0); WBC,Urine 8 /hpf (0-5)
[2022-01-18] MEDS ORDERED: ACETAMINOPHEN TAB 325 MG TAB PO PRN (23:31)
--- NOTE | 2022-01-19 01:21 | P.HPIM ---
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 History was provided by the daughter and granddaughter at the bedside. The patient lives by herself and was noted by her family members to have somewhat slurring of speech on the phone at around 4 PM. When they arrived at her house, they noticed that she was having expressive aphasia and her right facial droop was slightly worse than baseline. As per the patient and the family, her symptoms gradually improved and resolved around 6 pm. The patient denied experiencing unilateral weakness, numbness, or tingling. She denied experiencing any visual changes, dizziness, or headaches. Patient reports routinely walking without assistance. Reports feeling at her baseline at the time of interview. Denied any prior history of CVA or TIA. In the emergency room, CT brain was unremarkable with EKG showing sinus rhythm with sh ort MS interval and 93 bpm. Chest x-ray was unremarkable. evaluation was remarkable for BUN 26, creatinine 1.32, glucose 228. CT angiogram of head and neck were not performed due to chronic kidney disease. Review of systems: Pertinent positives and negatives as discussed in HPI, a complete review of systems was performed and all other systems are negative. Physical examination: General: non toxic, no distress, appears at stated age, normal weight Derm: no unusual rashes/lesions, warm Head: atraumatic, normocephalic, symmetric Eyes: EOMI, anicteric sclera, pupils equal round reactive to light ENT: Nose and ears atraumatic Neck: No cervical lymphadenopathy, trachea midline, supple Mouth: no lip lesion, mucus membranes moist Cardiovascular: S1S2 reg, no murmur, positive dorsalis pedis pulse bilateral, no edema Lungs: CTA bilateral, no rhonchi, no rales, no accessory muscle use Abdominal: soft, nontender to palpation, no guarding Ext: muscle strength 5 out of 5 in all 4 extremities grossly, no gross muscle atrophy, no contractures, Neuro: CN II-XI grossly intact, right facial droop noted, no gross focal neuro deficits Psych: Alert, oriented, appropriate affect Assessment/plan TIA -Neurology consult -Continue with aspirin, statin -Neuro checks -PT consult -Echocardiogram -CHEMICAL ENGINEERING TECHNOLOGIST evaluation -Cardiac monitoring -Carotid duplex Chronic conditions: Type II DM, hypertension, lipidemia, chronic kidney disease -Continue with home meds DVT prophylaxis -Heparin subcu The patient is admitted with an anticipated less than 2 midnight stay for evaluation of TIA. CODE STATUS: Full Code Discussed with: Patient Anticipated discharge date: In a.m. Anticipated discharge place: Home Past Medical History Past Medical History: Blood Disorder, Heart Failure, Diabetes Mellitus, GERD/Reflux, Hyperlipidemia, Hypertension, Renal Disease Additional Past Medical History / Comment(s): chronic kidney disease. iron def iciency anemia History of Any Multi-Drug Resistant Organisms: None Reported Past Surgical History: Breast Surgery, Section, Cholecystectomy Additional Past Surgical History / Comment(s): right breast lumpectomy. ovarian cyst removal. carotid bypass on the left. left wrist plate put in many years ago Past Anesthesia/Blood Transfusion Reactions: No Reported Reaction Past Psychological History: No Psychological Hx Reported Smoking Status: Former smoker Past Alcohol Use History: None Reported Past Drug Use History: None Reported - Past Family History Father Family Medical History: Hypertension Medications and Allergies Home Medications Medication Instructions Recorded Confirmed Type Multivitamins, Thera [Multivitamin 1 tab PO DAILY 10/16/17 01/18/22 History (formulary)] Simvastatin [Zocor] 80 mg PO DAILY 10/16/17 01/18/22 History Acarbose [Precose] 50 mg PO AC-SUPPER 10/15/21 01/18/22 History Calcium Carbonate [Calcium] 600 mg PO DAILY 10/15/21 01/18/22 History allopurinoL [Zyloprim] 100 mg PO DAILY 10/15/21 01/18/22 History Tolterodine ER [Detrol LA] 2 mg PO DAILY 10/17/21 01/18/22 History Acetaminophen Tab [Tylenol] 650 mg PO Q6HR PRN tab 10/21/21 01/18/22 Rx Ferrous Sulfate [Iron (65 MG 325 mg PO BID #60 tab 10/21/21 01/18/22 Rx Elemental)] Pantoprazole Sodium [Protonix] 40 mg PO BID 42 Days #21 tab 10/21/21 01/18/22 Rx Ofloxacin 0.3% Ophth Soln [Ocuflox 4 drops RIGHT EYE QID 01/18/22 01/18/22 History Ophth Soln] glipiZIDE 5 mg PO AC-BID 01/18/22 01/18/22 History lisinopriL [Zestril] 10 mg PO DAILY 01/18/22 01/18/22 History Allergies Allergy/AdvReac Type Severity Reaction Status Date / Time fluorouracil Allergy Hallucinati Verified 01/18/22 20:06 ons Sulfa (Sulfonamide Allergy Rash/Hives Verified 01/18/22 20:06 Antibiotics) trimethoprim Allergy Unknown Verified 01/18/22 20:06 Physical Exam Vitals: Vital Signs Temp Pulse Pulse Resp BP BP Pulse Ox 01/18/22 22:13 98.3 F 79 15 170/77 98 01/18/22 21:15 74 16 188/80 97 01/18/22 20:28 97.9 F 90 16 178/77 95 01/18/22 17:45 98.6 F 94 16 176/75 98 Intake and Output 01/18/22 01/18/22 01/19/22 14:59 22:59 06:59 Other: # Voids 0 Weight 58.967 kg Results CBC & Chem 7: 01/18/22 18:30 01/18/22 18:33 Labs: Abnormal Lab Results - Last 24 Hours (Table) 01/18/22 01/18/22 01/18/22 Range/Units 18:30 18:33 20:30 Hgb 11.2 L (11.4-16.0) gm/dL RDW 16.6 H (11.5-15.5) % Lymphocytes # 0.9 L (1.0-4.8) k/uL Sodium 135 L (137-145) mmol/L BUN 26 H (7-17) mg/dL Creatinine 1.32 H (0.52-1.04) mg/dL Glucose 228 H (74-99) mg/dL Total Protein 6.0 L (6.3-8.2) g/dL Ur Leukocyte Esterase Small H (Negative) Urine WBC 8 H (0-5) /hpf Hyaline Casts 20 H (0-2) /lpf Thrombosis Risk Factor Assmnt - Choose All That Apply Each Factor Represents 1 point: Obesity (BMI >25) Each Risk Factor Represents 3 Points: Age 75 years or older Thrombosis Risk Factor Assessment Total Risk Factor Score: 4 Thrombosis Risk Factor Assessment Level: Moderate Risk
[2022-01-19 07:42] LABS: Glucose,Whole Blood 150 mg/dL (70-110)
[2022-01-19] MEDS ORDERED: HEPARIN SODIUM,PORCINE/PF 5,000 UNIT/0.5 ML SYRINGE SQ SCH (08:00)
[2022-01-19 08:50] VITALS: BP 181/75; PULSE 89; RESP 18; TEMP 97.9
--- NOTE | 2022-01-19 08:52 | US ---
EXAMINATION TYPE: US carotid duplex BILAT DATE OF EXAM: 01/19/2022 COMPARISON: NONE CLINICAL HISTORY: 81-year-old female TIA. TECHNIQUE: Carotid duplex ultrasound examination. Indirect Doppler criteria was utilized. FINDINGS: EXAM MEASUREMENTS: RIGHT: Peak Systolic Velocity (PSV) cm/sec ----- Right CCA: 53.1 ----- Right ICA: 101 ----- Right ECA: 113 ICA/CCA ratio: 1.9 RIGHT: End Diastole cm/sec ----- Right CCA: 9.9 ----- Right ICA: 15.6 ----- Right ECA: 0.0 LEFT: Peak Systolic Velocity (PSV) cm/sec ----- Left CCA: 69.4 ----- Left ICA: 148. ----- Left ECA: 92.2 ICA/CCA ratio: 2.14 LEFT: End Diastole cm/sec ----- Left CCA: 9.8 ----- Left ICA: 17.2 ----- Left ECA: 0.0 VERTEBRALS (direction of flow): Right Vertebral: Antegrade Left Vertebral: Retrograde Rhythm: Normal SHELL WORKER NOTES: Moderate atherosclerotic changes seen bilateral. Right side shows velocity increas e in proximal ICA. Left shows velocity increase in proximal CCA and Mid ICA. IMPRESSION: 1. Measurements suggest a possible moderate (50-69%) stenosis mid left ICA. 2. Additionally, there may be a mild or moderate stenosis at the proximal left CCA. Increased peak sy stolic velocity here may alternatively be due to turbulent flow. Criteria for Assigning % of Stenosis / Diameter reduction (Estimation based on the indirect measurements of the internal carotid artery velocities (ICA PSV). 1. Normal (no stenosis)=ICA PSV < 125 cm/s: ratio < 2.0: ICA EDV<40 cm/s. 2. Less than 50% stenosis=ICA PSV < 125 cm/s: ratio < 2.0: ICA EDV<40 cm/s. 3. 50 to 69% stenosis=ICA PSV of 125 to 230 cm/s: ration 2.0 ? 4.0: ICA EDV 40-100 cm/s. 4. Greater than 70% stenosis to near occlusion= ICA PSV > 230 cm/s: ratio > 4.0: ICA EDV > 100 cm/s. 5. Near occlusion= ICA PSV velocities may be low or undetectable: variable ratio and ICA EDV. 6. Total occlusion=unable to detect flow.
[2022-01-19] MEDS ORDERED: ASPIRIN 325 MG TAB PO SCH (09:00)
[2022-01-19] MEDS ORDERED: CALCIUM CARBONATE 500 MG CHEWABLE PO SCH (09:00)
[2022-01-19] MEDS ORDERED: PANTOPRAZOLE 40 MG TABLET PO SCH (09:00)
[2022-01-19] MEDS ORDERED: ATORVASTATIN 40 MG TAB PO SCH (09:00)
[2022-01-19] MEDS ORDERED: allopurinoL 100 MG TAB PO SCH (09:00)
[2022-01-19] MEDS ORDERED: OFLOXACIN 0.3% OPHTH DROPS 5 ML BOTTLE RIGHT EYE SCH (09:00)
[2022-01-19] MEDS ORDERED: lisinopriL 10 MG TAB PO SCH (09:00)
[2022-01-19] MEDS ORDERED: OXYBUTYNIN XL 5 MG TAB.ER.24 PO SCH (09:00)
[2022-01-19 09:10] LABS: Basophils # (A) 0.05 X 10*3/uL (0.00-0.10); Basophils % (A) 0.8 %; Eosinophils # (A) 0.19 X 10*3/uL (0.04-0.35); HGB 10.4 g/dL (12.0-15.0); Immature Grans, Automated 0.2 %; Lymphocytes # (A) 1.54 X 10*3/uL (0.90-5.00); Lymphocytes % (A) 24.6 %; MCH 27.1 pg (27.0-32.0); MCHC 30.6 g/dL (32.0-37.0); MCV 88.5 fL (80.0-97.0); Monocytes # (A) 0.47 X 10*3/uL (0.20-1.00); Monocytes % (A) 7.5 %; NRBC Per 100 WBC 0 /100 WBCS (0.0-0.0); Neutrophils # (A) 3.99 X 10*3/uL (1.80-7.70); Neutrophils % (A) 63.9 %; Platelet Count 185 X 10*3/uL (140-440); RBC 3.84 X 10*6/uL (4.10-5.20); RDW 17.2 % (11.5-14.5); WBC 6.25 X 10*3/uL (4.50-10.00)
--- NOTE | 2022-01-19 09:14 | CA ---
Transthoracic Echo Report Name: Valerie Falcon Age: 81 Gender: F : 1940 Exam Date: 01/19/2022 08:12 Exam Location: [facility] Ht (in): 60 Wt (lb): 130 Ordering Physician: Anna Lamb MD Attending/Referring Phys: [employer] An[employer] Grace Burgess RDCS Procedure CPT: Indications: tia Cardiac Hx: Technical Quality: Good Contrast 1: Total Dose (mL): Contrast 2: Total Dose (mL): MEASUREMENTS (Male / Female) Normal Values 2D ECHO LV Diastolic Diameter PLAX 4.4 cm 4.2 - 5.9 / 3.9 - 5.3 cm LV Systolic Diameter PLAX 3.1 cm IVS Diastolic Thickness 1.0 cm 0.6 - 1.0 / 0.6 - 0.9 cm LVPW Diastolic Thickness 1.1 cm 0.6 - 1.0 / 0.6 - 0.9 cm LV Relative Wall Thickness 0.5 RV Internal Dim ED PLAX 3.0 cm LA Systolic Diameter LX 3.8 cm 3.0 - 4.0 / 2.7 - 3.8 cm LA Volume 58.9 cm??? 18 - 58 / 22 - 52 cm??? M-MODE Aortic Root Diameter MM 3.1 cm MV E Point Septal Separation 0.3 cm AV Cusp Separation MM 2.1 cm DOPPLER AV Peak Velocity 186.1 cm/s AV Peak Gradient 13.8 mmHg MV Area PHT 3.8 cm??? Mitral E Point Velocity 91.0 cm/s Mitral A Point Velocity 103.1 cm/s Mitral E to A Ratio 0.9 MV Deceleration Time 201.9 ms MV E' Velocity 8.6 cm/s Mitral E to MV E' Ratio 10.6 TR Peak Velocity 265.2 cm/s TR Peak Gradient 28.1 mmHg Right Ventricular Systolic Press 31.9 mmHg FINDINGS Left Ventricle Left ventricular ejection fraction is estimated at 55-60 %. Left ventricular cavity size normal. Borderline left ventricular hypertrophy. Right Ventricle Normal right ventricular size and function. Right ventricular systolic pressure within normal limits. Right Atrium Normal right atrial size. Left Atrium Mildly increased left atrial volume. No evidence for an atrial septal defect. Mitral Valve Mitral valve thickened. Trace to mild mitral regurgitation. Aortic Valve Trileaflet aortic valve. Trace aortic regurgitation. Tricuspid Valve Mild tricuspid regurgitation. Pulmonic Valve Pulmonic valve not well visualized. Pericardium Normal pericardium. No pericardial effusion. Prominent epicardial fat. Aorta Normal size aortic root and proximal ascending aorta. CONCLUSIONS Mild left ventricular hypertrophy with preserved systolic function ejection fraction greater than 60% Previewed by: Dr. Rajat Rangel MD (Electronically Signed) Final Date: 19 January 2022 09:12
[2022-01-19] MEDS: INSULIN ASPART (NovoLOG) 100 UNIT/ML VIAL SQ SCH ×2 (09:18→12:34)
[2022-01-19] MEDS: MULTIVITAMINS, THERA 1 EACH TAB PO SCH ×2 (09:21→09:25)
[2022-01-19] MEDS: FERROUS SULFATE 325 MG TAB PO SCH ×2 (09:22→09:25)
[2022-01-19 09:27] LABS: African American GFR (CKD) 55.3 (60.0-200.0); BUN/Creat Ratio 23.73 Ratio (12.00-20.00); Blood Urea Nitrogen 26.1 mg/dL (9.0-27.0); Calcium 9.4 mg/dL (8.7-10.3); Carbon Dioxide 31.1 mmol/L (20.0-27.5); Chloride 105 mmol/L (96-109); Chol/HDL Ratio 2.35 Ratio; Glucose 161 mg/dL (70-110); LDL Cholesterol,Calculated 48.9 mg/dL (0.0-131.0); Non-African American GFR(CKD) 47.7 (60.0-200.0); Potassium 4.6 mmol/L (3.5-5.5); Sodium 140 mmol/L (135-145); VLDL Calculation 16.14 mg/dL (5.00-40.00)
[2022-01-19] MEDS ORDERED: CLOPIDOGREL 75 MG TAB PO SCH (11:15)
--- NOTE | 2022-01-19 11:21 | P.PN ---
Subjective Progress Note Date: 01/19/22 Principal diagnosis: Slurred speech Patient was seen and examined. No acute events overnight. Daughter at bedside. Patient reports significant improvement in her slurred speech. She denies any facial droop. She denies any numbness/weakness/tingling of the extremities. Unable to undergo MRI due to recent capsule endoscopy done on Monday. Objective - Vital Signs Vital signs: Vital Signs Temp 97.9 F 01/19/22 07:00 Pulse 89 01/19/22 07:00 Resp 18 01/19/22 07:00 BP 181/75 01/19/22 07:00 Pulse Ox 96 01/19/22 07:00 FiO2 Intake & Output 01/18/22 01/19/22 01/19/22 18:59 06:59 18:59 Intake Total 59 Balance 59 Weight 58.967 kg 58.967 kg Intake: Oral 59 Other: # Voids 0 - Exam General: [non toxic], [no distress], [appears at stated age] Derm: [warm], [dry] Head: [atraumatic], [normocephalic], [symmetric] Eyes: [EOMI], [no lid lag], [anicteric sclera] Mouth: [no lip lesion], [mucus membranes moist] Cardiovascular: [S1S2 reg], [no murmur] Lungs: [CTA bilateral], [no rhonchi, no rales] , [no accessory muscle use] Abdominal: [soft], [ nontender to palpation], [no guarding], [no appreciable organomegaly] Ext: [no gross muscle atrophy], [no edema], [no contractures] Neuro: [ CN II-XI grossly intact except R facial droop], [no focal neuro deficits] Psych: [Alert], [oriented], [appropriate affect] - Labs CBC & Chem 7: 01/19/22 04:33 01/19/22 04:33 Labs: Abnormal Lab Results - Last 24 Hours (Table) 01/18/22 01/18/22 01/18/22 Range/Units 18:30 18:33 20:30 RBC (4.10-5.20) X 10*6/uL Hgb 11.2 L (11.4-16.0) gm/dL Hct (37.2-46.3) % MCHC (32.0-37.0) g/dL RDW 16.6 H (11.5-15.5) % Lymphocytes # 0.9 L (1.0-4.8) k/uL Sodium 135 L (137-145) mmol/L Carbon Dioxide (20.0-27.5) mmol/L Anion Gap (10.00-18.00) mmol/L BUN 26 H (7-17) mg/dL Creatinine 1.32 H (0.52-1.04) mg/dL Est GFR (CKD-EPI)AfAm (60.0-200.0) Est GFR (CKD-EPI)NonAf (60.0-200.0) BUN/Creatinine Ratio (12.00-20.00) Ratio Glucose 228 H (74-99) mg/dL POC Glucose (mg/dL) (70-110) mg/dL Total Protein 6.0 L (6.3-8.2) g/dL Ur Leukocyte Esterase Small H (Negative) Urine WBC 8 H (0-5) /hpf Hyaline Casts 20 H (0-2) /lpf 01/19/22 01/19/22 01/19/22 Range/Units 04:33 04:33 07:39 RBC 3.84 L (4.10-5.20) X 10*6/uL Hgb 10.4 L (11.4-16.0) gm/dL Hct 34.0 L (37.2-46.3) % MCHC 30.6 L (32.0-37.0) g/dL RDW 17.2 H (11.5-15.5) % Lymphocytes # (1.0-4.8) k/uL Sodium (137-145) mmol/L Carbon Dioxide 31.1 H (20.0-27.5) mmol/L Anion Gap 3.90 L (10.00-18.00) mmol/L BUN (7-17) mg/dL Creatinine (0.52-1.04) mg/dL Est GFR (CKD-EPI)AfAm 55.3 L (60.0-200.0) Est GFR (CKD-EPI)NonAf 47.7 L (60.0-200.0) BUN/Creatinine Ratio 23.73 H (12.00-20.00) Ratio Glucose 161 H (74-99) mg/dL POC Glucose (mg/dL) 150 H (70-110) mg/dL Total Protein (6.3-8.2) g/dL Ur Leukocyte Esterase (Negative) Urine WBC (0-5) /hpf Hyaline Casts (0-2) /lpf Assessment and Plan Assessment: TIA -Neurology consult -Continue with aspirin, statin -Neuro checks -PT consult -Echocardiogram shows EF of 60% with mild LVH -OILER BANDER evaluation -Cardiac monitoring -Carotid duplex shows 50-69% moderate stenosis in the left ICA Carotid stenosis -Patient follows Dr. Upton vascular surgery in the outpatient setting Resolved: Acute kidney injury Chronic conditions: Type II DM, hypertension, lipidemia, chronic kidney disease -Continue with home meds DVT prophylaxis -Heparin subcu The patient is admitted with an anticipated less than 2 midnight stay for evaluation of TIA. CODE STATUS: Full Code Discussed with: Patient Anticipated discharge date: Today with Neurology clearance Anticipated discharge place: Home
--- NOTE | 2022-01-19 11:25 | P.CNNES ---
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 It seems that she was with family members on the phone and it was felt that she was slurring her speech around 4 PM yesterday and the family member felt like she was having the some word finding difficulty and her right facial droop was worse than baseline. And in the ED seems the patient had resolution of symptom per ED team. Patient stated that she's not on any antiplatelet that. She used to be on aspirin 325 daily but started having GI bleed so she was taken off of aspirin by her GI specialist. Patient has a capsule for the her GI fluoroscope still cannot get MRI. She has an appointment this Monday for eye surgery and was told to stay away from any antiplatelets if possible. She is on simvastatin 80 mg daily at home. The day she feels still back to baseline. Some of the workup during this hospital visit consisted of: Her blood pressure on presentation is 176/75 currently is 181/75 Creatinine is 1.32 currently is 1.1 initial serum glucose is 228 Lipid panel is triglyceride of 80, cholesterol is 113, LDL is a 48 [address] HDL is [address] of the head is reported as cerebral atrophy. No acute intracerebral abnormality. No change compared to old exam. I personally reviewed the CT of the head and there is no acute or subacute ischemia and there is no temporal hemorrhage. I feel the patient has possibly an old hygroma over the bilateral frontal versus atrophy. Carotid duplex is reported as measurements suggest possible moderate 50-69% stenosis of the mild left ICA additionally there may be mild or moderate stenosis of the proximal left common carotid. Increased at peak systolic velocity here may alternatively be due to turbulent flow The echo was reported as mild left ventricle hypertrophy with preserved systolic function ejection fraction greater than 60%. Mildly increased left atrial volume. No evidence of for an atrial septal defect. Review of Systems Review of system: The 12 point system was reviewed and apparent positive and negative per HPI. Past Medical History Past Medical History: Blood Disorder, Heart Failure, Diabetes Mellitus, GERD/Reflux, Hyperlipidemia, Hypertension, Renal Disease Additional Past Medical History / Comment(s): chronic kidney disease. iron deficiency anemia History of Any Multi-Drug Resistant Organisms: None Reported Past Surgical History: Breast Surgery, Section, Cholecystectomy Additional Past Surgical History / Comment(s): right breast lumpectomy. ovarian cyst removal. carotid bypass on the left. left wrist plate put in many years ago Past Anesthesia/Blood Transfusion Reactions: No Reported Reaction Past Psychological History: No Psychological Hx Reported Smoking Status: Former smoker Past Alcohol Use History: None Reported Past Drug Use History: None Reported - Past Family History Father Family Medical History: Hypertension Medications and Allergies Home Medications Medication Instructions Recorded Confirmed Type Multivitamins, Thera [Multivitamin 1 tab PO DAILY 10/16/17 01/18/22 History (formulary)] Simvastatin [Zocor] 80 mg PO DAILY 10/16/17 01/18/22 History Acarbose [Precose] 50 mg PO AC-SUPPER 10/15/21 01/18/22 History Calcium Carbonate [Calcium] 600 mg PO DAILY 10/15/21 01/18/22 History allopurinoL [Zyloprim] 100 mg PO DAILY 10/15/21 01/18/22 History Tolterodine ER [Detrol LA] 2 mg PO DAILY 10/17/21 01/18/22 History Acetaminophen Tab [Tylenol] 650 mg PO Q6HR PRN tab 10/21/21 01/18/22 Rx Ferrous Sulfate [Iron (65 MG 325 mg PO BID #60 tab 10/21/21 01/18/22 Rx Elemental)] Pantoprazole Sodium [Protonix] 40 mg PO BID 42 Days #21 tab 10/21/21 01/18/22 Rx Ofloxacin 0.3% Ophth Soln [Ocuflox 4 drops RIGHT EYE QID 01/18/22 01/18/22 History Ophth Soln] glipiZIDE 5 mg PO AC-BID 01/18/22 01/18/22 History lisinopriL [Zestril] 10 mg PO DAILY 01/18/22 01/18/22 History Allergies Allergy/AdvReac Type Severity Reaction Status Date / Time fluorouracil Allergy Hallucinati Verified 01/18/22 20:06 ons Sulfa (Sulfonamide Allergy Rash/Hives Verified 01/18/22 20:06 Antibiotics) trimethoprim Allergy Unknown Verified 01/18/22 20:06 Physical Examination - Vital Signs Vital Signs: Vital Signs Temp Pulse Pulse Resp BP BP BP 01/19/22 07:00 97.9 F 89 18 181/75 01/19/22 03:53 97.4 F L 69 16 162/74 01/18/22 22:13 98.3 F 79 15 170/77 01/18/22 21:15 74 16 188/80 01/18/22 20:28 97.9 F 90 16 178/77 01/18/22 17:45 98.6 F 94 16 176/75 Pulse Ox 01/19/22 07:00 96 01/19/22 03:53 96 01/18/22 22:13 98 01/18/22 21:15 97 01/18/22 20:28 95 01/18/22 17:45 98 Intake and Output 01/18/22 01/19/22 01/19/22 22:59 06:59 14:59 Intake Total 59 Balance 59 Intake: Oral 59 Other: # Voids 0 0 Weight 58.967 kg GENERAL: The patient is lying in bed and is not in acute distress. CHEST: The heart rate is regular rate rhythm. No murmurs to auscultation. LUNG: Clear to auscultation bilaterally no wheezing noted throughout. Not labored breathing. ABDOMEN/GI: Bowel sounds present in all 4 quadrants. No tenderness to palpation throughout. NEUROLOGICAL: Higher mental function: The patient is awake, alert, oriented to self, place and time. Patient is following commands. No aphasia and no neglect. Cranial nerves: The pupils are round, equal and reactive to light and accommodation. Visual bucio are full to confrontation throughout. Extraocular movement is intact no nystagmus is noted. Facial sensation is normal to touch throughout. The facial strength is old right peripheral weakness. Hearing is mildly to moderately decreased bilaterally to hand rub. Tongue is midline and moved [id number] without any difficulty. No dysarthria is noted. Shoulder shrug is normal bilaterally. Motor: Gait is normal. The strength is 5 over 5 throughout. Normal tone and bulk. Cerebellum: Normal finger to nose bilaterally. Sensation: Sensation is normal to touch throughout. Reflexes (right/left): 2+ throughout. Plantars are downgoing bilaterally. Results - Laboratory Findings CBC and BMP: 01/19/22 04:33 01/19/22 04:33 Abnormal Lab Findings: Abnormal Labs 01/18/22 01/18/22 01/18/22 18:30 18:33 20:30 RBC Hgb 11.2 L Hct MCHC RDW 16.6 H Lymphocytes # 0.9 L Sodium 135 L Carbon Dioxide Anion Gap BUN 26 H Creatinine 1.32 H Est GFR (CKD-EPI)AfAm Est GFR (CKD-EPI)NonAf BUN/Creatinine Ratio Glucose 228 H POC Glucose (mg/dL) Total Protein 6.0 L Ur Leukocyte Esterase Small H Urine WBC 8 H Hyaline Casts 20 H 01/19/22 01/19/22 01/19/22 04:33 04:33 07:39 RBC 3.84 L Hgb 10.4 L Hct 34.0 L MCHC 30.6 L RDW 17.2 H Lymphocytes # Sodium Carbon Dioxide 31.1 H Anion Gap 3.90 L BUN Creatinine Est GFR (CKD-EPI)AfAm 55.3 L Est GFR (CKD-EPI)NonAf 47.7 L BUN/Creatinine Ratio 23.73 H Glucose 161 H POC Glucose (mg/dL) 150 H Total Protein Ur Leukocyte Esterase Urine WBC Hyaline Casts Assessment and Plan Assessment: Acute transient expressive aphasia and worsening of right facial: Likely transient ischemic attack Possible 50-69% stenosis over the left ICA on carotid duplex Uncontrolled hypertension 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 But was notified cannot be obtained since has GI capsule. Aspirin 325 daily started by the primary team. I will decrease it since has history of lower GI Bleed while on ASA 325mg and will go down to 81mg daily. I will not start dual antiplatelets since her history of lower GI bleed and risk outweigh the benefit. Her [id number] will contact her Eye surgeon regarding use of ASA since has coming-up appointment this Monday for surgery and was notified to stay away from antiplatelets. On Lipitor 40 mg daily. I ordered CT angiography of the neck and if there is moderate to significan stenosis. Patient continues to follow-up with Dr. Davila (vascular surgeon) who operated on her neck and was notified to continue to follow-up with him PT, OT and VAT WASHER are consulted Continue neuro checks On cardiac monitoring We'll defer the rest of the medical management to primary team For DVT prophylaxis the patient is on subcu heparin 5000 units every hours The plan is discussed with the patient and her daughter who are at bedside. If CTA neck is complete and not significant stenosis, patient is clear for discharge. Thank you for the consultation. Julio C Thapa M.D. Neuro-Hospitalist Time with Patient: Greater than 30
[2022-01-19 12:33] LABS: Glucose,Whole Blood 143 mg/dL (70-110)
--- NOTE | 2022-01-19 13:52 | CT ---
EXAMINATION TYPE: CT angio neck DATE OF EXAM: 01/19/2022 HISTORY: poss TIA COMPARISON: None CT DLP: 288.5 mGycm. Automated Exposure Control for Dose Reduction was Utilized. TECHNIQUE: CTA scan of the neck is performed with IV Contrast, patient injected with 65 mL of Isovue 370, axial images are obtained, coronal and sagittal reformatted images are reviewed. Three-D recons tructed images are created on an independent workstation and reviewed. Source images are reviewed. FINDINGS: Carotid/Vascular Structures: There appear to be 2 vessels extending from the aortic arch. Common serna tid arteries are patent. Plaquing is present at the bilateral carotid bifurcations. Appears more grea ter on the right with narrowing measuring roughly 23%. This is less than the estimated based on the u ltrasound of the 01/19/2022. Significant flow-limiting stenosis is not identified. Internal carotid art eries are patent to the skull base. Right vertebral artery may be dominant. Cervical of [place]: Vertebral basilar system appears normal. Posterior cerebral vasculature is unrema rkable. Internal carotid arteries bifurcate normally into A1 and M1 segments. A2 segments are normal. The anterior communicating artery is patent. Left Posterior communicating artery is patent. Right po sterior communicating artery is patent. IMPRESSION: 1. No significant flow-limiting stenosis bilateral carotid bifurcations. 2. Normal [place] of [place] NASCET criteria was used in interpretation of this exam?
[2022-01-19] MEDS ORDERED: ACARBOSE 25 MG TAB PO SCH (17:30)
--- NOTE | 2022-01-19 17:43 | P.DS ---
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 History was provided by the daughter and granddaughter at the bedside. The patient lives by herself and was noted by her family members to have somewhat slurring of speech on the phone at around 4 PM. When they arrived at her house, they noticed that she was having expressive aphasia and her right facial droop was slightly worse than baseline. As per the patient and the family, her symptoms gradually improved and resolved around 6 pm. The patient denied experiencing unilateral weakness, numbness, or tingling. She denied experiencing any visual changes, dizziness, or headaches. Patient reports routinely walking without assistance. Reports feeling at her baseline at the time of interview. Denied any prior history of CVA or TIA. In the emergency room, CT brain was unremarkable with EKG showing sinus rhythm with short RI interval and 93 bpm. Chest x-ray was unremarkable. DrMarcos evaluation was remarkable for BUN 26, creatinine 1.32, glucose 228. CT angiogram of head and neck were not performed due to chronic kidney disease. Her symptoms resolved during her hospitalization. Echocardiogram was done which showed EF greater than 60%, mild left hypertrophy. Carotid Doppler was done which showed moderate stenosis of the mid left ICA, mild to moderate stenosis of the proximal left ICA. Neurology was consulted and recommended CTA head and neck. She was also started on aspirin 81 mg by mouth daily along with Lipitor 40 mg by mouth daily. CTA head and neck showed no significant flow-limiting stenosis bilateral carotid bifurcation, normal [place] of [place]. Patient was deemed stable for discharge. She was advised to follow-up with her PCP within 1-2 days of discharge. Advised to follow-up with vascular surgery within 1 week of discharge. Advised to follow-up with neurology within 1 week of discharge. Please see progress note for physical exam. Discharge diagnosis: TIA Carotid stenosis Resolved: Acute kidney injury Chronic conditions: Type 2 diabetes mellitus, hypertension, dyslipidemia, chronic kidney disease Pertinent Studies: CT brain CTA head and neck Carotid duplex Echocardiogram Patient Condition at Discharge: Stable Plan - Discharge Summary Discharge Rx Participant: No New Discharge Prescriptions: New Aspirin 81 mg PO DAILY #30 tab Atorvastatin [Lipitor] 40 mg PO DAILY #30 tab Continue Multivitamins, Thera [Multivitamin (formulary)] 1 tab PO DAILY Tolterodine ER [Detrol LA] 2 mg PO DAILY Ferrous Sulfate [Iron (65 MG Elemental)] 325 mg PO BID #60 tab Acetaminophen Tab [Tylenol] 650 mg PO Q6HR PRN tab PRN Reason: Mild Pain Or Fever > 100.5 Pantoprazole Sodium [Protonix] 40 mg PO BID 42 Days #21 tab Ofloxacin 0.3% Ophth Soln [Ocuflox Ophth Soln] 4 drops RIGHT EYE QID allopurinoL [Zyloprim] 100 mg PO DAILY Acarbose [Precose] 50 mg PO AC-SUPPER Calcium Carbonate [Calcium] 600 mg PO DAILY lisinopriL [Zestril] 10 mg PO DAILY glipiZIDE 5 mg PO AC-BID Discontinued Simvastatin [Zocor] 80 mg PO DAILY Discharge Medication List Multivitamins, Thera [Multivitamin (formulary)] 1 tab PO DAILY 10/16/17 [History] Acarbose [Precose] 50 mg PO AC-SUPPER 10/15/21 [History] Calcium Carbonate [Calcium] 600 mg PO DAILY 10/15/21 [History] allopurinoL [Zyloprim] 100 mg PO DAILY 10/15/21 [History] Tolterodine ER [Detrol LA] 2 mg PO DAILY 10/17/21 [History] Acetaminophen Tab [Tylenol] 650 mg PO Q6HR PRN tab 10/21/21 [Rx] Ferrous Sulfate [Iron (65 MG Elemental)] 325 mg PO BID #60 tab 10/21/21 [Rx] Pantoprazole Sodium [Protonix] 40 mg PO BID 42 Days #21 tab 10/21/21 [Rx] Ofloxacin 0.3% Ophth Soln [Ocuflox Ophth Soln] 4 drops RIGHT EYE QID 01/18/22 [History] glipiZIDE 5 mg PO AC-BID 01/18/22 [History] lisinopriL [Zestril] 10 mg PO DAILY 01/18/22 [History] Aspirin 81 mg PO DAILY #30 tab 01/19/22 [Rx] Atorvastatin [Lipitor] 40 mg PO DAILY #30 tab 01/19/22 [Rx] Follow up Appointment(s)/Referral(s): Kitty Samuel MD [REFERRING] - 1 Week Jaskaran Upton MD [STAFF PHYSICIAN] - 1 Week Brett Bruce [Primary Care Provider] - 1-2 days Patient Instructions/Handouts: Transient Ischemic Attack (DC) Activity/Diet/Wound Care/Special Instructions: Diet: Cardiac Follow-up with your PCP within 1-2 days of discharge. Follow-up with neurology within 1 week of discharge. Take all medications as advised. Come back to the ED for worsening confusion, slurred speech, numbness/weakness/tingling of the extremities. Discharge Disposition: HOME SELF-CARE
[2022-01-20] MEDS ORDERED: ASPIRIN 81 MG PO SCH (09:00)
== END 2022-01-19 15:15 | disposition home or self-care (01) ==
LOC: EC 17:39 → 6NMEDSUR 20:41
PROVIDERS: ADMIT Internal Medicine; ATTEND Internal Medicine
DX: G45.9 Transient cerebral ischemic attack, unspecified (principal); N17.9 Acute kidney failure, unspecified; I13.0 Hypertensive heart and chronic kidney disease with heart failure and stage 1 through stage 4 chronic kidney disease, or unspecified chronic kidney disease; E11.22 Type 2 diabetes mellitus with diabetic chronic kidney disease; N18.9 Chronic kidney disease, unspecified; I50.9 Heart failure, unspecified; E78.5 Hyperlipidemia, unspecified; K21.9 Gastro-esophageal reflux disease without esophagitis; D50.9 Iron deficiency anemia, unspecified; M85.88 Other specified disorders of bone density and structure, other site; I70.0 Atherosclerosis of aorta; I65.23 Occlusion and stenosis of bilateral carotid arteries; Z79.84 Long term (current) use of oral hypoglycemic drugs; Z79.899 Other long term (current) drug therapy; Z88.2 Allergy status to sulfonamides; Z79.82 Long term (current) use of aspirin; Z90.49 Acquired absence of other specified parts of digestive tract; Z87.891 Personal history of nicotine dependence; Z82.49 Family history of ischemic heart disease and other diseases of the circulatory system
CPT/HCPCS: 99285; 36415; 93005; 93306; 97161; 97165; 92523; 80061; 80053; 80048; 84484; 85025 ×2; 85610; 85730; 81001; 71046; 93880; 70450; 70498; G0378 ×2; Q9967

== ENCOUNTER → 2022-01-31 | Outpatient (CLI) | payer MEDICARE ==
--- NOTE | 2022-01-31 15:44 | CT ---
EXAMINATION TYPE: CT ChestAbdPelvis wo con CT DLP: 430.90 mGycm, Automated exposure control for dose reduction was used. DATE OF EXAM: 01/31/2022 3:14 PM COMPARISON: CT chest 12/18/2018, CT abdomen pelvis 02/01/2013. CLINICAL INDICATION:Female, 81 years old with history of N18.9 Kidney disease; PHH, kidney disease hx of breast ca Technique: Multiple axial images of the chest, abdomen, and pelvis were obtained without the administ ration intravenous contrast was limits evaluation of the viscera. Oral contrast was administered. Two -dimensional coronal and sagittal reconstructions were obtained. Findings: CHEST: LUNGS/ PLEURA: No pneumothorax, pleural effusion, focal consolidation. Right apical pleural parenchym al scarring. Stable left anterior upper lobe paraseptal emphysematous changes. Stable left lower lobe peripheral 5 mm noncalcified pulmonary nodule from 2019 and considered benign (series 4, image 39). No new or enlarging pulmonary nodules. Minimal scarring demonstrated within the lingula. Stable calc ified granuloma within the right upper lobe. AIRWAY: Patent and unremarkable.. HEART: Size within normal limits. No pericardial effusion. Coronary artery calcifications. MEDIASTINUM: No gross evidence of adenopathy. VASCULATURE: No aortic aneurysm. Atherosclerotic calcification of the aorta and its branches. MUSCULOSKELETAL: No acute osseous abnormalities. No aggressive osseous lesions. SOFT TISSUES/LYMPH NODES: No axillary adenopathy. Dystrophic calcifications within the right breast. LOWER NECK: No significant findings. ABDOMEN: ABDOMEN LIVER: Unremarkable noncontrast appearance. GALLBLADDER AND BILE DUCTS: Postcholecystectomy. No biliary ductal dilatation. PANCREAS: Fatty infiltration of the pancreas. SPLEEN: Unremarkable noncontrast appearance. ADRENAL GLANDS: Unremarkable noncontrast appearance. KIDNEYS AND URETERS: No hydronephrosis or renal calculi. PELVIS BLADDER: Unremarkable REPRODUCTIVE: Peripherally calcified left adnexal lesion measuring up to 2.5 cm likely representing a dermoid. This can be further evaluated with pelvic ultrasound if clinically indicated. ABDOMEN & PELVIS STOMACH AND BOWEL: Stomach and duodenum are unremarkable. Colonic diverticulosis without evidence for acute diverticulitis. No evidence of bowel obstruction. PERITONEUM: No evidence of pneumoperitoneum or free fluid. VASCULATURE: Moderate atherosclerotic calcifications are present throughout the abdominal aorta and i ts branches. No abdominal aortic aneurysm. MUSCULOSKELETAL: No acute osseous abnormalities. No aggressive osseous lesions. Degenerative changes at T12-L1 with space narrowing, endplate sclerosis, subchondral cysts, and osteophytosis. LYMPH NODES: No gross evidence for lymphadenopathy. SOFT TISSUE/ABDOMINAL WALL: Unremarkable IMPRESSION: * No evidence for metastatic disease within the chest, abdomen and pelvis within limitations of a no ncontrast exam. * Colonic diverticulosis without evidence for acute diverticulitis.
== END | disposition home or self-care (01) ==
LOC: RADCTMAIN 13:03
PROVIDERS: ATTEND Internal Medicine Hematology & Oncology
DX: N18.9 Chronic kidney disease, unspecified (principal); Z85.3 Personal history of malignant neoplasm of breast
CPT/HCPCS: 71250; 74176

== ENCOUNTER 2022-06-22 15:49 | Emergency (ER) | payer MEDICARE ==
--- NOTE | 2022-06-22 17:10 | XR ---
EXAMINATION TYPE: XR chest 2V DATE OF EXAM: 06/22/2022 COMPARISON: 01/18/2022 HISTORY: Chest pain TECHNIQUE: 2 views FINDINGS: Heart is normal. Lungs are clear of infiltrate. No heart failure. Thoracic aorta is atherom atous. Costophrenic angles are clear. IMPRESSION: No active cardiopulmonary disease. Normal heart. No change compared to old exam.
[2022-06-22 18:44] LABS: Potassium 4.5 mmol/L (3.5-5.1)
[2022-06-22 18:45] LABS: Calcium 10.2 mg/dL (8.4-10.2); Total Bilirubin 0.8 mg/dL (0.2-1.3); Total Protein 6.6 g/dL (6.3-8.2)
[2022-06-22] MEDS ORDERED: LABETALOL 5 MG/ML VIAL MDV IVP STA (19:51)
[2022-06-22] MEDS ORDERED: ACETAMINOPHEN TAB 325 MG TAB PO STA (19:51)
[2022-06-22 19:53] LABS: Basophils % (A) 0 %; Eosinophils # (A) 0.1 k/uL (0-0.7); Eosinophils % (A) 2 %; HCT 37.1 % (34.0-46.0); HGB 11.8 gm/dL (11.4-16.0); Hypochromasia Slight; Lymphocytes # (A) 1.6 k/uL (1.0-4.8); Lymphocytes % (A) 20 %; MCV 84.6 fL (80.0-100.0); Mean Platelet Volume 8.7; Monocytes # (A) 0.4 k/uL (0-1.0); Monocytes % (A) 5 %; Neutrophils # (A) 5.7 k/uL (1.3-7.7); Neutrophils % (A) 72 %; Platelet Count 180 k/uL (150-450); RBC 4.38 m/uL (3.80-5.40); RDW 14.1 % (11.5-15.5)
--- NOTE | 2022-06-22 19:54 | ED ---
Recheck HPI - General Chief Complaint: Recheck/Abnormal Lab/Rx Stated Complaint: hypertension Time Seen by Provider: 06/22/22 19:13 Source: patient Mode of arrival: ambulatory Limitations: no limitations - History of Present Illness Initial Comments: 82-year-old female presents to emergency room with family, sent to the emergency room by PCP with elevated blood pressure with systolic over 200. PCP did see her today and double her lisinopril dose to 20 mg twice a day instead of once a day and was given a dose in the office. She went home and states blood pressure remained elevated. PCP told her to come to the emergency room for evaluation. She denies any chest pain shortness breath. No other symptoms. She states that she has not eaten all day and is developing a headache. Denies any nausea vomiting or diarrhea. Does have history of kidney disease, hypertension, TIA, diabetes and iron deficiency anemia. MD Complaint: other (elevated BP at PCP today) -: days(s) (1) Symptoms Since Prior Visit: no new symptoms - Related Data Home Medications Medication Instructions Recorded Confirmed Multivitamins, Thera [Multivitamin 1 tab PO DAILY 10/16/17 01/18/22 (formulary)] Acarbose [Precose] 50 mg PO AC-SUPPER 10/15/21 01/18/22 Calcium Carbonate [Calcium] 600 mg PO DAILY 10/15/21 01/18/22 allopurinoL [Zyloprim] 100 mg PO DAILY 10/15/21 01/18/22 Tolterodine ER [Detrol LA] 2 mg PO DAILY 10/17/21 01/18/22 Ofloxacin 0.3% Ophth Soln [Ocuflox 4 drops RIGHT EYE QID 01/18/22 01/18/22 Ophth Soln] glipiZIDE 5 mg PO AC-BID 01/18/22 01/18/22 lisinopriL [Zestril] 10 mg PO DAILY 01/18/22 01/18/22 Previous Rx's Medication Instructions Recorded Acetaminophen Tab [Tylenol] 650 mg PO Q6HR PRN tab 10/21/21 Ferrous Sulfate [Iron (65 MG 325 mg PO BID #60 tab 10/21/21 Elemental)] Pantoprazole Sodium [Protonix] 40 mg PO BID 42 Days #21 tab 10/21/21 Aspirin 81 mg PO DAILY #30 tab 01/19/22 Atorvastatin [Lipitor] 40 mg PO DAILY #30 tab 01/19/22 Allergies Allergy/AdvReac Type Severity Reaction Status Date / Time fluorouracil Allergy Hallucinati Verified 06/22/22 16:27 ons Sulfa (Sulfonamide Allergy Rash/Hives Verified 06/22/22 16:27 Antibiotics) trimethoprim Allergy Unknown Verified 06/22/22 16:27 Review of Systems ROS Statement: Those systems with pertinent positive or pertinent negative responses have been documented in the HPI. ROS Other: All systems not noted in ROS Statement are negative. Past Medical History Past Medical History: Blood Disorder, Heart Failure, Diabetes Mellitus, GERD/Reflux, Hyperlipidemia, Hypertension, Renal Disease Additional Past Medical History / Comment(s): chronic kidney disease. iron deficiency anemia History of Any Multi-Drug Resistant Organisms: None Reported Past Surgical History: Breast Surgery, Section, Cholecystectomy Additional Past Surgical History / Comment(s): right breast lumpectomy. ovarian cyst removal. carotid bypass on the left. left wrist plate put in many years ago Past Anesthesia/Blood Transfusion Reactions: No Reported Reaction Past Psychological History: No Psychological Hx Reported Smoking Status: Former smoker Past Alcohol Use History: None Reported Past Drug Use History: None Reported - Past Family History Father Family Medical History: Hypertension General Exam Limitations: no limitations General appearance: alert, in no apparent distress Head exam: Present: atraumatic Respiratory exam: Absent: respiratory distress, accessory muscle use Cardiovascular Exam: Present: regular rate GI/Abdominal exam: Present: soft Extremities exam: Present: normal capillary refill. Absent: pedal edema Neurological exam: Present: alert, oriented X3 Psychiatric exam: Present: normal affect, normal mood Skin exam: Present: warm, dry, normal color. Absent: cyanosis, diaphoretic Course Vital Signs 06/22/22 06/22/22 06/22/22 16:23 18:32 20:29 Pulse Rate 99 81 Respiratory 20 15 Rate Blood Pressure 215/103 199/77 171/85 O2 Sat by Pulse 98 100 Oximetry 06/22/22 20:50 Pulse Rate 84 Respiratory 15 Rate Blood Pressure 137/68 O2 Sat by Pulse 100 Oximetry Medical Decision Making - Medical Decision Making EKG interpretation by me shows sinus rhythm with no ST elevation noted change compared to old 01/18/2022. Troponin negative Chest x-ray interpreted by me shows no significant infiltrate. Radiologist interpretation no active cardiopulmonary disease, normal heart, no change compared to old exam. Labs shows no evidence of anemia. Electrolytes are unremarkable. Patient was given labetalol for her blood pressure. Blood pressure down to 137/68. She was complaining of a mild headache she attributes to not eating today. Given Tylenol and something to eat which resolved her headache. Patient will be discharged home and directed to follow up with her primary care doctor. Continue her antihypertensives as prescribed by Dr. Smith. Return to the emergency room with a new or concerning symptoms. She is agreeable to this plan of care. Case discussed with Dr. Pena. Was pt. sent in by a medical professional or institution? @ -Yes primary care Did you speak to anyone other than the patient for history? @ -Yes daughter Did you review nursing and triage notes? @ -Yes I agree Were old charts reviewed? @ -Yes old EKG Differential Diagnosis? @ -Hypertensive urgency, acute HI, volume overload, pain EKG interpreted by me (3pts min.)? @ -Yes as above X-rays interpreted by me (1pt min.)? @ -Yes as above CT interpreted by me (1pt min.)? @ -Not applicable U/S interpreted by me (1pt. min.)? @ -Not applicable What testing was considered but not performed? (CT, X-rays, U/S, labs)? Why? @ CT was considered however patient's headache resolved with Tylenol and food. No new focal neurological deficits. Ambulatory with a steady gait What meds were considered but not given? Why? @ -None Did you discuss the management of the patient with other professionals? @ -No Did you reconcile home meds? @ -No Was smoking cessation discussed for >3mins.? @ -No Was critical care preformed (if so, how long)? @ -No Were there social determinants of health that impacted care today? How? (Homelessness, low income, unemployed, alcoholism, drug addiction, transportation, low edu. Level, literacy, decrease access to med. care, [place] [facility], rehab)? @ -None Was there de-escalation of care discussed even if they declined? (Discuss DNR or withdrawal of care, Hospice)? @ -No What co-morbidities impacted this encounter? (DM, HTN, Smoking, COPD, CAD, Cancer, CVA, Hep., AIDS, mental health diagnosis, sleep apnea, morbid obesity)? @ -Hypertension, heart failure, diabetes, anemia, TIA Was patient admitted / discharged? @ -Discharged Undiagnosed new problem with uncertain prognosis? @ -[none] Drug Therapy requiring intensive monitoring for toxicity (Heparin, Nitro, Insulin, Cardizem)? @ -In no Were any procedures done? @ -No Diagnosis/symptom? @ -Hypertensive urgency Acute, or Chronic, or Acute on Chronic? @ -Acute on chronic Uncomplicated (without systemic symptoms) or Complicated (systemic symptoms)? @ -Uncomplicated Side effects of treatment? @ -[none] Exacerbation, Progression, or Severe Exacerbation] @ -[no] Poses a threat to life or bodily function? @ -[no] - Lab Data Result diagrams: 06/22/22 19:48 06/22/22 18:32 Lab Results 06/22/22 06/22/22 06/22/22 Range/Units 18:32 18:32 19:48 WBC (3.8-10.6) k/uL RBC (3.80-5.40) m/uL Hgb (11.4-16.0) gm/dL Hct (34.0-46.0) % MCV (80.0-100.0) fL MCH (25.0-35.0) pg MCHC (31.0-37.0) g/dL RDW (11.5-15.5) % Plt Count (150-450) k/uL MPV Neutrophils % % Lymphocytes % % Monocytes % % Eosinophils % % Basophils % % Neutrophils # (1.3-7.7) k/uL Lymphocytes # (1.0-4.8) k/uL Monocytes # (0-1.0) k/uL Eosinophils # (0-0.7) k/uL Basophils # (0-0.2) k/uL Hypochromasia PT 10.1 (9.0-12.0) sec INR 1.0 (<1.2) APTT 23.9 (22.0-30.0) sec Sodium 140 (137-145) mmol/L Potassium 4.5 (3.5-5.1) mmol/L Chloride 105 (98-107) mmol/L Carbon Dioxide 28 (22-30) mmol/L Anion Gap 7 mmol/L BUN 25 H (7-17) mg/dL Creatinine 0.89 (0.52-1.04) mg/dL Est GFR (CKD-EPI)AfAm 71 (>60 ml/min/1.73 sqM) Est GFR (CKD-EPI)NonAf 61 (>60 ml/min/1.73 sqM) Glucose 115 H (74-99) mg/dL Calcium 10.2 (8.4-10.2) mg/dL Magnesium 2.0 (1.6-2.3) mg/dL Total Bilirubin 0.8 (0.2-1.3) mg/dL AST 30 (14-36) U/L ALT 24 (4-34) U/L Alkaline Phosphatase 87 (38-126) U/L Troponin I <0.012 (0.000-0.034) ng/mL Total Protein 6.6 (6.3-8.2) g/dL Albumin 4.0 (3.5-5.0) g/dL 06/22/22 Range/Units 19:48 WBC 8.0 (3.8-10.6) k/uL RBC 4.38 (3.80-5.40) m/uL Hgb 11.8 (11.4-16.0) gm/dL Hct 37.1 (34.0-46.0) % MCV 84.6 (80.0-100.0) fL MCH 27.0 (25.0-35.0) pg MCHC 32.0 (31.0-37.0) g/dL RDW 14.1 (11.5-15.5) % Plt Count 180 (150-450) k/uL MPV 8.7 Neutrophils % 72 % Lymphocytes % 20 % Monocytes % 5 % Eosinophils % 2 % Basophils % 0 % Neutrophils # 5.7 (1.3-7.7) k/uL Lymphocytes # 1.6 (1.0-4.8) k/uL Monocytes # 0.4 (0-1.0) k/uL Eosinophils # 0.1 (0-0.7) k/uL Basophils # 0.0 (0-0.2) k/uL Hypochromasia Slight PT (9.0-12.0) sec INR (<1.2) APTT (22.0-30.0) sec Sodium (137-145) mmol/L Potassium (3.5-5.1) mmol/L Chloride (98-107) mmol/L Carbon Dioxide (22-30) mmol/L Anion Gap mmol/L BUN (7-17) mg/dL Creatinine (0.52-1.04) mg/dL Est GFR (CKD-EPI)AfAm (>60 ml/min/1.73 sqM) Est GFR (CKD-EPI)NonAf (>60 ml/min/1.73 sqM) Glucose (74-99) mg/dL Calcium (8.4-10.2) mg/dL Magnesium (1.6-2.3) mg/dL Total Bilirubin (0.2-1.3) mg/dL AST (14-36) U/L ALT (4-34) U/L Alkaline Phosphatase (38-126) U/L Troponin I (0.000-0.034) ng/mL Total Protein (6.3-8.2) g/dL Albumin (3.5-5.0) g/dL - EKG Data EKG shows normal: sinus rhythm (Ventricular rate 76, WA interval 0.150, QRS 0.79, QTC 0.391; left axis deviation; no ST elevation) Disposition Clinical Impression: Hypertension, Hypertensive urgency Disposition: HOME SELF-CARE Condition: Good Instructions (If sedation given, give patient instructions): Hypertension (ED) Additional Instructions: Your EKG and labs are unremarkable today. Continue taking your blood pressure medication as prescribed by your primary care doctor. Follow-up with your doctor next week. Return to the emergency room with any new or concerning symptoms including difficulty breathing or chest pain. Is patient prescribed a controlled substance at d/c from ED?: No Referrals: Reji Moy MD [Primary Care Provider] - 1-2 days Time of Disposition: 21:00
[2022-06-22 20:04] LABS: Partial Thromboplastin Time 23.9 sec (22.0-30.0); Prothrombin Time 10.1 sec (9.0-12.0)
[2022-06-22 20:30] VITALS: RESP 15
[2022-06-22 20:51] VITALS: BP 137/68; PULSE 84
== END 2022-06-22 22:12 | disposition home or self-care (01) ==
LOC: EC 15:49
DX: I13.0 Hypertensive heart and chronic kidney disease with heart failure and stage 1 through stage 4 chronic kidney disease, or unspecified chronic kidney disease (principal); K21.9 Gastro-esophageal reflux disease without esophagitis; E11.22 Type 2 diabetes mellitus with diabetic chronic kidney disease; N18.9 Chronic kidney disease, unspecified; I50.9 Heart failure, unspecified; Z87.891 Personal history of nicotine dependence; Z88.2 Allergy status to sulfonamides; Z88.8 Allergy status to other drugs, medicaments and biological substances; Z79.899 Other long term (current) drug therapy
CPT/HCPCS: 36415; 71046; 80053; 83735; 84484; 85025; 85610; 85730; 93005; 96374; 99284

== ENCOUNTER → 2022-10-05 | Outpatient (CLI) | payer MEDICARE ==
--- NOTE | 2022-10-05 16:06 | MM ---
Reason for Exam: Screening (asymptomatic). Last mammogram was performed 1 year(s) and 3 month(s) ago. Patient History: Menarche at age 15. First Full-Term at age 24. Postmenopausal. Breast cancer, right, age 57. Tamoxifen for 5 years from age 57 until age 62. 01/12/1998, Malignant Lumpectomy on the right side. Radiation Therapy, right. Paternal cousin had breast cancer. Paternal aunt had breast cancer. Sister had breast cancer, age 62. Prior Study Comparison: 05/03/2019 Bilateral Screening Mammogram, [facility]. 05/04/2020 Bilateral Screening Mammogram, [facility]. 06/28/2021 Bilateral Screening Mammogram, [facility]. Tissue Density: The breast tissue is heterogeneously dense. This may lower the sensitivity of mammography. Findings: Analyzed By CAD. There is no suspicious group of microcalcifications or new suspicious mass in either breast. Benign calcifications within both breasts. Posttreatment changes of the right breast. Overall Assessment: Benign, BI-RAD 2 Management: Screening Mammogram of both breasts in 1 year. A clinical breast exam by your physician is recommended on an annual basis and results should be correlated with mammographic findings. Electronically signed and approved by: Epifanio Rosario D.O.
== END | disposition home or self-care (01) ==
LOC: RADMAMWWP 12:44
PROVIDERS: ATTEND Family Medicine
DX: Z12.31 Encounter for screening mammogram for malignant neoplasm of breast (principal); Z78.0 Asymptomatic menopausal state; Z80.3 Family history of malignant neoplasm of breast
CPT/HCPCS: 77063; 77067

== ENCOUNTER → 2023-01-17 | Outpatient (CLI) | payer MEDICARE | END | disposition home or self-care (01) | LOC: LABWHC1 11:48 | PROVIDERS: ATTEND Family Medicine | DX: E11.9 Type 2 diabetes mellitus without complications (principal) | CPT/HCPCS: 36415; 83036 ==

== ENCOUNTER → 2023-05-17 | Outpatient (CLI) | payer MEDICARE ==
[2023-05-18 05:21] LABS: Urine Creatinine 31.9 mg/dL (28.0-217.0)
== END | disposition home or self-care (01) ==
LOC: LABWHC1 14:05
PROVIDERS: ATTEND Family Medicine
DX: E11.9 Type 2 diabetes mellitus without complications (principal)
CPT/HCPCS: 36415; 82043; 82570; 83036

== ENCOUNTER → 2023-07-21 | Outpatient (CLI) | payer MEDICARE ==
--- NOTE | 2023-07-21 14:10 | US ---
EXAMINATION TYPE: US kidneys/renal and bladder DATE OF EXAM: 07/21/2023 COMPARISON: CLINICAL INDICATION: Female, 83 years old with history of I12.9 HYPERTENSIVE CHRONIC KIDNEY DISEASE W STG 1-; EXAM MEASUREMENTS: Right Kidney: 8.1 x 4.3 x 4.2 cm Left Kidney: 7.6 x 3.9 x 4.4 cm Post Void Residual Volume: 5.6 mL Right Kidney: 1-lateral mid anechoic lesion = 1.0 x 1.0 x 0.9 cm. 2- inferior medial anechoic lesion = 0.9 x 0.47 x 0.8 cm Left Kidney: Cortical thinning, prominent pyramids Bladder: Distended, anechoic Bilateral Jets seen Normal Post Void Residual: Yes There is no evidence for hydronephrosis at this point in time. No nephrolithiasis is seen. No solid masses are identified. The urinary bladder is anechoic. Bilateral ureteral jets are seen. IMPRESSION: 1. Renal cystic changes right kidney. 2. Renal cortical thinning seen bilaterally.
== END | disposition home or self-care (01) ==
LOC: RADUSWWP 13:29
PROVIDERS: ATTEND Internal Medicine Nephrology
DX: I12.9 Hypertensive chronic kidney disease with stage 1 through stage 4 chronic kidney disease, or unspecified chronic kidney disease (principal); N28.1 Cyst of kidney, acquired
CPT/HCPCS: 76770

== ENCOUNTER → 2024-06-27 | Outpatient (CLI) | payer MEDICARE ==
--- NOTE | 2024-06-28 11:24 | MR ---
EXAMINATION TYPE: MR brain and iac wo/w con DATE OF EXAM: 06/27/2024 7:05 PM COMPARISON: 01/18/2022. 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 Specialized thin s equences were obtained through the internal auditory canals. Pre-and post gadolinium sequences were obtained. IV Contrast: 5.5 mL Gadobutrol FINDINGS: The flores-white junctions, ventricular system, and cisterns appear unremarkable. Scattered foci of h igh T2 signal intensity are seen within the periventricular white matter. Midline structures show no abnormality. Diffusion-weighted imaging shows no evidence of restricted diffusion. The susceptibility weighted images do not reveal any evidence for micro-hemorrhage. The bone marrow signal is within normal limits. Paranasal sinuses and mastoid air cells: Mild scattered paranasal sinus disease. Visualized orbits: Bilateral aphakia After administration of gadolinium, no abnormal enhancement is seen. The internal auditory canal sequences demonstrate no significant irregularity. The 7th cranial nerve s, 8 cranial nerves, and cerebellar pontine angles appear unremarkable. After the administration roger olinium, no abnormal enhancement is seen within the internal auditory canals. Vascular loop: None. IMPRESSION: 1. No evidence of intracranial mass nor acute/subacute CVA. 2. No evidence of internal auditory canal abnormality. 3. Nonspecific white matter changes, likely secondary to small vessel ischemic disease. [facility], Workstation: 3, 06/28/2024 11:22 AM
== END | disposition home or self-care (01) ==
LOC: RADMRIMAIN 17:56
PROVIDERS: ATTEND Otolaryngology Otology & Neurotology
DX: D33.3 Benign neoplasm of cranial nerves (principal); H91.93 Unspecified hearing loss, bilateral; G51.0 Bell's palsy; R90.82 White matter disease, unspecified
CPT/HCPCS: 70553; A9585

== ENCOUNTER → 2025-01-13 | Outpatient (CLI) | payer MEDICARE ==
[2025-01-13 19:57] LABS: HCT 43.0 % (37.2-46.3); HGB 13.7 g/dL (12.0-15.0); MCH 27.6 pg (27.0-32.0); MCHC 31.9 g/dL (32.0-37.0); MCV 86.5 FL (80.0-97.0); NRBC Per 100 WBC 0 X 10*3/uL (0.00-0.01); Platelet Count 230 X 10*3/uL (140-440); RBC 4.97 X 10*6/uL (4.10-5.20); RDW 15.2 % (11.5-14.5); WBC 9.89 X 10*3/uL (4.50-10.00)
[2025-01-13 20:35] LABS: Anion Gap 9.40 mmol/L (4.00-12.00); BUN/Creat Ratio 16.38 Ratio (12.00-20.00); Blood Urea Nitrogen 21.3 mg/dL (9.0-27.0); Calcium 9.9 mg/dL (8.7-10.3); Carbon Dioxide 25.6 mmol/L (21.6-31.8); Chloride 103 mmol/L (96-109); Glucose 176 mg/dL (70-110); Potassium 4.7 mmol/L (3.5-5.5); Sodium 138 mmol/L (135-145)
== END | disposition home or self-care (01) ==
LOC: LABWHC1 16:30
PROVIDERS: ATTEND Internal Medicine Cardiovascular Disease
DX: I48.11 Longstanding persistent atrial fibrillation (principal)
CPT/HCPCS: 36415; 80048; 84443; 85027